=== PATIENT | female | born 1955 | race Caucasian/White ===

== ENCOUNTER 2022-05-11 21:21 | Emergency (ER) | payer MEDICARE, SELFPAY ==
[2022-05-11] VITALS (10 sets, daily range): BP systolic 115–150; BP diastolic 57–77; PULSE 90–110; RESP 16–36; TEMP 37.2; O2SAT 95–100; BMI 34.3
--- NOTE | 2022-05-11 21:29 | DI.CT.S_ITS ---
PROCEDURE: CT HEAD/BRAIN WO CON INDICATIONS: fall with neck pain TECHNIQUE: Noncontrast 4.5 mm thick angled axial sections acquired from the foramen magnum to the vertex, with coronal and sagittal reformats. For radiation dose reduction, the following was used: automated exposure control, adjustment of mA and/or kV according to patient size. COMPARISON: None. FINDINGS: Image quality: Excellent. CSF spaces: Basal cisterns are patent. No extra-axial fluid collections. Ventricles are normal in size and shape. Brain: No intracranial hemorrhage, mass, or mass effect. Hatch-white matter interface appears preserved. Skull and face: Calvarium and visualized facial bones are intact, without suspicious lesions. Sinuses: Visualized sinuses and mastoids are clear. IMPRESSION: 1. No acute intracranial abnormality. Dictated by: Kip Mays M.D. on 05/11/2022 at 23:14 Approved by: Kip Mays M.D. on 05/11/2022 at 23:16
--- NOTE | 2022-05-11 21:29 | DI.CT.S_ITS ---
PROCEDURE: CT CERVICAL SPINE WO CON INDICATIONS: fall with neck pain TECHNIQUE: Noncontrast 3 mm thick sections acquired from the skull base to the T4 level. Sagittal and coronal reformats were then constructed. For radiation dose reduction, the following was used: automated exposure control, adjustment of mA and/or kV according to patient size. COMPARISON: None. FINDINGS: Image quality: There is mild motion artifact. Metallic streak artifact is also present from patient's left chest wall pacemaker. Bones: No fractures or subluxation. There is straightening of the cervical lordosis. There is minimal anterolisthesis at C7-T1. Multilevel degenerative disc disease and facet arthropathy are present. Visualized superior ribs are intact. Soft tissues: Prevertebral soft tissues are normal in thickness. No paravertebral hematomas. No apical pneumothoraces. IMPRESSION: 1. No acute fracture or subluxation. Dictated by: Kip Mays M.D. on 05/11/2022 at 23:16 Approved by: Kip Mays M.D. on 05/11/2022 at 23:19
--- NOTE | 2022-05-11 21:59 | ED_ITS ---
HPI - Fall General Chief Complaint: Fall Stated Complaint: glf- repeated falls. slurred speech etoh Time Seen by Provider: 05/11/22 21:26 Source: patient and EMS Mode of arrival: EMS History of Present Illness HPI Narrative: 66-year-old female nonsmoker with history of alcohol abuse presents by EMS for evaluation of head and neck pain after fall. She denies any loss of consciousness nor nausea or vomiting. She takes no blood thinners but does admit to drinking alcohol. She had been seen and evaluated at an outside facility earlier and was upset with her care, stating they did not take any pictures. She has no chest pain or shortness of breath. She denies any shoulder, the elbow or wrist pain. She has no hip, knee or ankle pain Related Data Previous Rx's Medication Instructions Recorded carbamazepine 200 mg tablet 400 mg OR HS #14 tabs 10/22/15 Allergies Allergy/AdvReac Type Severity Reaction Status Date / Time acetaminophen [From VICODIN] Allergy Unknown Unverified 06/13/17 12:08 hydrocodone [From VICODIN] Allergy Unknown Unverified 06/13/17 12:08 Review of Systems Review of Systems Narrative: GENERAL: Denies chills, fatigue, malaise, fever, sweats. HEENT: Denies sinus pain, ear pain, sore throat, difficulty swallowing, dizziness. RESPIRATORY: Denies dyspnea, cough, wheezing, hemoptysis, sputum. CARDIOVASCULAR: Denies chest pain, palpitations, orthopnea, edema, GASTROINTESTINAL: Denies nausea, vomiting, abdominal pain, diarrhea, constipation, melena. : Denies dysuria, frequency, incontinence, hematuria, urinary retention. MUSCULOSKELETAL: see HPI SKIN: Denies rash, skin lesions, or other NEUROLOGIC: Denies weakness, headache, numbness, change in speech, confusion, seizures, incoordination. PSYCHIATRIC: No concerning psychosocial issues. 12 point review of systems is negative except for those stated above Patient History Social History Smoking Status: Never smoker Smoking Status: Never smoker alcohol intake frequency: holidays/special occasions only Alcohol type: wine Substance Use Type: does not use Exam Narrative Exam Narrative: GENERAL: [66] year old patient appears stated age. Well-developed patient, in mild distress. GCS 15 HEAD: Atraumatic. Normocephalic. Purple and brownish bruising occiput and left parietal region, no hematoma or evidence of depressed skull fracture EYES: Pupils equal round and reactive. No hyphema Extraocular motions intact. No scleral icterus. No injection or drainage. ENT: Nose without bleeding, purulent drainage. No nasal septal hematoma Throat without erythema, tonsillar hypertrophy or exudate. Airway patent. NECK: Trachea midline. Midline tenderness to palpation CARDIOVASCULAR: Regular rate and rhythm without murmurs, gallops, or rubs. RESPIRATORY: Clear to auscultation. Breath sounds equal bilaterally. No wheezes, rales, or rhonchi. GASTROINTESTINAL: Abdomen soft, non-tender, nondistended. EXTREMITIES: No edema or joint tenderness. BACK: Nontender without deformity or crepitance. No flank tenderness. NEURO: AOx3. SKIN: No rash or erythema of visible areas Initial Vital Signs Initial Vital Signs: Vital Signs Temperature 99.0 F 05/11/22 21:30 Pulse Rate 91 H 05/11/22 21:30 Respiratory Rate 16 05/11/22 21:30 Blood Pressure 130/57 L 05/11/22 21:30 Pulse Oximetry 98 05/11/22 21:30 Oxygen Delivery Method Room Air 05/11/22 21:30 Course Orders Ordered: ED Orders 05/11/22 21:28 Blood Culture Stat COVID19 -Nasal RAPID Stat 05/11/22 21:29 CT cervical spine wo con Stat CT head/brain wo con Stat Lactate (Lactic Acid) Stat 05/11/22 22:30 Complete Blood Count AUTO DIFF Stat Comprehensive Metabolic Panel Stat Ethanol (ETOH) Stat Lipase Stat Magnesium Stat NT-proBNP (BNP-Adult 18+) Stat Troponin & CK Cardiac Panel Stat Discontinued Medications Sodium Chloride (Normal Saline 0.9%) 1,000 mls @ 1,000 mls/hr IV BOLUS ONE Stop: 05/11/22 22:27 Last Infusion: 05/12/22 01:30 Dose: 0 mls/hr Documented By: Admin: 05/11/22 22:45 Dose: 1,000 mls/hr Documented By: JOEY Ketorolac Tromethamine (Ketorolac 30 Mg/Ml Vial) 15 mg IV NOW ONE Stop: 05/11/22 23:21 Last Admin: 05/11/22 23:36 Dose: 15 mg Documented By: JOEY Metoprolol Tartrate (Metoprolol Ir 25 Mg Tablet) 25 mg PO NOW ONE Stop: 05/12/22 03:12 Last Admin: 05/12/22 03:20 Dose: 25 mg Documented By: JOEY Reevaluation(s) Reevaluation #1: Patient awake, alert and oriented, repeatedly asking for help urinating Reevaluation #2: Patient ambulatory with walker, she is a cane at baseline. Speaking clearly, requesting discharge Vital Signs Vital signs: Vital Signs - 8 hr 05/11/22 21:30 Temperature 99.0 F Pulse Rate 91 H Respiratory Rate 16 Blood Pressure 130/57 L Pulse Oximetry 98 Oxygen Delivery Method Room Air MDM - Fall Lab Data 05/11/22 22:30 05/11/22 22:30 Labs: Lab Results 05/11/22 05/11/22 05/11/22 Range/Units 22:30 22:30 22:30 WBC 6.6 (4.5-11.0) X10^3/uL RBC 5.02 (4.0-5.2) X10^6/uL Hgb 11.3 L (12.0-16.0) g/dL Hct 36.1 (36-46) % MCV 71.9 L (80-100) fL MCH 22.6 L (26-34) PG MCHC 31.4 (30-36) % RDW 22.4 H (11.6-14.8) % Plt Count 411 H (150-400) X10^3/uL Neut % (Auto) 40.4 L (50-75) % Lymph % (Auto) 47.5 H (25-40) % [place] % (Auto) 9.7 (3-14) % Eos % (Auto) 1.3 L (2-4) % Baso % (Auto) 1.1 (0-2) % Neut # (Auto) 2600 (4120-4472) /uL Lymph # (Auto) 3100 (3623-1528) /uL [place] # (Auto) 600 (0-900) /uL Eos # (Auto) 100 (0-450) /uL Baso # (Auto) 100 (0-100) /uL RBC Morphology See below Anisocytosis 3+ H Ovalocytes 1+ H Schistocytes 1+ H Sodium 142 (137-145) mmol/L Potassium 4.3 (3.4-5.1) mmol/L Chloride 106 (98-107) mmol/L Carbon Dioxide 25 (22-32) mmol/L BUN 9 (7-17) mg/dL Creatinine 0.72 (0.52-1.04) mg/dL Estimated GFR > 60 (>60) mL/min BUN/Creatinine Ratio 12.5 (6-22) Glucose 93 (80-110) mg/dL Calcium 9.5 (8.4-10.2) mg/dL Magnesium 2.3 (1.6-2.3) mg/dL Total Bilirubin 0.6 (0.2-1.3) mg/dL AST 91 H (14-36) IU/L ALT 11 (<35) IU/L Alkaline Phosphatase 85 (38-126) U/L Total Creatine Kinase 59 (30-135) U/L CK-MB (CK-2) TNP CK-MB (CK-2) Rel Index TNP Troponin I < 0.012 (0.01-0.034) ng/mL NT-Pro-B Natriuret Pep 389 H (<125) pg/mL Total Protein 8.0 (6.3-8.2) g/dL Albumin 4.8 (3.5-5.0) g/dL Globulin 3.2 (1.7-4.1) g/dL Albumin/Globulin Ratio 1.5 (1.0-2.8) Lipase 62 (23-300) U/L Ethyl Alcohol ( - 10) mg/dL 05/11/22 Range/Units 22:30 WBC (4.5-11.0) X10^3/uL RBC (4.0-5.2) X10^6/uL Hgb (12.0-16.0) g/dL Hct (36-46) % MCV (80-100) fL MCH (26-34) PG MCHC (30-36) % RDW (11.6-14.8) % Plt Count (150-400) X10^3/uL Neut % (Auto) (50-75) % Lymph % (Auto) (25-40) % [place] % (Auto) (3-14) % Eos % (Auto) (2-4) % Baso % (Auto) (0-2) % Neut # (Auto) (5894-1745) /uL Lymph # (Auto) (3422-4374) /uL [place] # (Auto) (0-900) /uL Eos # (Auto) (0-450) /uL Baso # (Auto) (0-100) /uL RBC Morphology Anisocytosis Ovalocytes Schistocytes Sodium (137-145) mmol/L Potassium (3.4-5.1) mmol/L Chloride (98-107) mmol/L Carbon Dioxide (22-32) mmol/L BUN (7-17) mg/dL Creatinine (0.52-1.04) mg/dL Estimated GFR (>60) mL/min BUN/Creatinine Ratio (6-22) Glucose (80-110) mg/dL Calcium (8.4-10.2) mg/dL Magnesium (1.6-2.3) mg/dL Total Bilirubin (0.2-1.3) mg/dL AST (14-36) IU/L ALT (<35) IU/L Alkaline Phosphatase (38-126) U/L Total Creatine Kinase (30-135) U/L CK-MB (CK-2) CK-MB (CK-2) Rel Index Troponin I (0.01-0.034) ng/mL NT-Pro-B Natriuret Pep (<125) pg/mL Total Protein (6.3-8.2) g/dL Albumin (3.5-5.0) g/dL Globulin (1.7-4.1) g/dL Albumin/Globulin Ratio (1.0-2.8) Lipase (23-300) U/L Ethyl Alcohol 220 H ( - 10) mg/dL [facility] Narrative Medical decision making narrative: CC: 66-year-old female with head and neck pain after fall Complicating co-morbidities: Age, alcohol use Data collected from: Patient Medical records reviewed: Prior notes reviewed in our EMR Differential considered, but not limited to: Fracture, dislocation intracranial hemorrhage versus other Exam documented above, pertinent findings include: Aging bruising on parietal and occiput, no depressed skull fracture. Patient is speaking clearly without slurring words. She does have midline tenderness on her neck but negative imaging. Otherwise unremarkable exam Lab Test results independently reviewed as above. Pertinent findings: Independently reviewed EKG as above Imaging studies independently reviewed: CT of head and C-spine unremarkable Treatments: Saline and Toradol Re-evaluations: Patient resting comfortably Discussion: Patient with alcohol on board and a ground level fall, chief complaint of headache and neck pain. Otherwise absence of complaint. History and physical are very reassuring, over time she becomes alert and oriented, ambulatory in the department. Imaging without any significant findings. She had not taken her nighttime meds and has been given her metoprolol. No findings suggestive of the need for further workup or intervention Disposition: see below, along with detailed discharge instructions that have been reviewed with patient as well as indications for ED re-evaluation and additional outpatient follow up Discharge Plan Departure Patient Disposition: Home Clinical Impression: Contusion of scalp, Acute neck pain, Alcohol abuse Instructions: How to Prevent Falls Activity Restrictions/Additional Instructions: *You have been diagnosed with [fall with minor injury] *What to do: *Please continue to take your regular medications as directed. *Please follow up with your primary care provider in 2-3 days, call for an appointment. Let them know you were seen in the Emergency Department and that we ask that you be seen in follow up. We will electronically transmit a record of today's note if your PCP is in our system *If you do not have a primary care provider please contact the [facility] Resource line at [phone]. They will ask some questions about your medical history and help get you set up with a doctor in the community. *Return to Emergency Department if you should have any new, worsening or concerning symptoms, such as [fever greater than 101 F, shaking chills, worsening pain, persistent vomiting or other bothersome symptoms] Prescriptions: No Action carbamazepine 200 MG tablet 400 mg OR HS Qty: 14 5RF Referrals: Jeff Fu DO [Primary Care Provider] - Stand Alone Forms: Patient Portal/API
[2022-05-11] MEDS: SODIUM CHLORIDE 0.9% 1,000 ML 1000 ML IV (22:45)
[2022-05-11 22:57] LABS: Ethanol (ETOH) 220 mg/dL
[2022-05-11 22:59] LABS: Creatine Kinase 59 U/L (30-135); Lipase 62 U/L (23-300); Magnesium 2.3 mg/dL (1.6-2.3)
[2022-05-11 23:00] LABS: Add Manual Diff / Slide Review SLIDE REVIEW; Basophils Absolute Auto 100 /uL (0-100); Basophils Percent Auto 1.1 % (0-2); Eosinophils Absolute Auto 100 /uL (0-450); Eosinophils Percent Auto 1.3 % (2-4); Hematocrit 36.1 % (36-46); Hemoglobin 11.3 g/dL (12.0-16.0); Lymphocytes Absolute Auto 3100 /uL (1100-4500); Lymphocytes Percent Auto 47.5 % (25-40); Mean Corpuscular HGB Conc 31.4 % (30-36); Mean Corpuscular Hemoglobin 22.6 PG (26-34); Mean Corpuscular Volume 71.9 fL (80-100); Monocytes Absolute Auto 600 /uL (0-900); Monocytes Percent Auto 9.7 % (3-14); Neutrophils Absolute Auto 2600 /uL (1500-7000); Neutrophils Percent Auto 40.4 % (50-75); Platelet Count 411 X10^3/uL (150-400); Red Blood Cell Count 5.02 X10^6/uL (4.0-5.2); Red Cell Distribution Width 22.4 % (11.6-14.8); White Blood Cell Count 6.6 X10^3/uL (4.5-11.0)
[2022-05-11 23:12] LABS: NT-proBNP (BNP-Adult 18+) 389 pg/mL (<125); Troponin I < 0.012 ng/mL (0.01-0.034)
[2022-05-11] MEDS: KETOROLAC 30 MG/ML VIAL 15 MG IV (23:36)
[2022-05-11 23:42] LABS: Alanine Aminotransferase 11 IU/L (<35); Albumin 4.8 g/dL (3.5-5.0); Albumin Globulin Ratio 1.5 (1.0-2.8); Alkaline Phosphatase 85 U/L (38-126); Aspartate Aminotransferase 91 IU/L (14-36); BUN Creatinine Ratio 12.5 (6-22); Bilirubin Total 0.6 mg/dL (0.2-1.3); Blood Urea Nitrogen 9 mg/dL (7-17); Calcium 9.5 mg/dL (8.4-10.2); Carbon Dioxide 25 mmol/L (22-32); Chloride 106 mmol/L (98-107); Estimated Glomerular Filt Rate > 60 mL/min (>60); Globulin 3.2 g/dL (1.7-4.1); Glucose 93 mg/dL (80-110); HEMOLYSIS 48 (0-50); Potassium 4.3 mmol/L (3.4-5.1); Sodium 142 mmol/L (137-145)
[2022-05-12] VITALS (12 sets, daily range): BP systolic 116–137; BP diastolic 60–85; PULSE 89–120; RESP 15–31; O2SAT 93–98
[2022-05-12 00:37] LABS: Anisocytosis 3+; Ovalocytes 1+; Schistocytes 1+
[2022-05-12] MEDS: METOPROLOL IR 25 MG TABLET PO (03:20)
--- NOTE | 2022-05-12 04:13 | PC.NURSE ---
Pt has been cleared for discharge, unable to obtain a ride home, waiting for am 8am taxi or other way home.
--- NOTE | 2022-05-12 08:03 | PC.NURSE ---
Patient able to walk to chair. She is sitting up and eating a sandwich and drinking water. Vital signs stable. Alert and oriented x3. She states she cannot find her black birkenstock shoes. I checked in the room, CT and in our clothing locked area and did not find them I encouraged the patient to check her house and with the ambulance company and then to call back and check lost and found if those attempts are unsuccessful. Vania was called to drive the patient home. She was wheeled out to the taxi in a wheelchair by the GROCERY CLERK SELLING.
== END 2022-05-12 08:13 | disposition home or self-care (01) ==
PROVIDERS: Emergency Provider Emergency Medicine; Family Provider Family Medicine; PCP Family Medicine
DX: S00.03XA Contusion of scalp, initial encounter (principal); M54.2 Cervicalgia; F10.129 Alcohol abuse with intoxication, unspecified; Y90.7 Blood alcohol level of 200-239 mg/100 ml; W18.30XA Fall on same level, unspecified, initial encounter; R47.81 Slurred speech; R29.6 Repeated falls
CPT/HCPCS: 36415; 70450; 72125; 80053; 80320; 82550; 83690; 83735; 83880; 84484; 85025; 87040; 96361; 96374; 99284; J1885

== ENCOUNTER 2022-05-12 18:50 | Emergency (ER) | payer MEDICARE, SELFPAY ==
[2022-05-12] VITALS (10 sets, daily range): BP systolic 133–145; BP diastolic 62–73; PULSE 86–121; RESP 18–22; TEMP 36.6; O2SAT 95–100
--- NOTE | 2022-05-12 19:13 | DI.CT.S_ITS ---
PROCEDURE: CT CERVICAL SPINE WO CON INDICATIONS: fall, trauma TECHNIQUE: Noncontrast 3 mm thick sections acquired from the skull base to the T4 level. Sagittal and coronal reformats were then constructed. For radiation dose reduction, the following was used: automated exposure control, adjustment of mA and/or kV according to patient size. COMPARISON: [facility], CT, CT CERVICAL SPINE WO CON, 05/11/2022, 21:52. FINDINGS: Image quality: There is motion artifact limiting evaluation. Bones: No definite fracture or subluxation. There is minimal anterolisthesis at C7-T1. There is mild straightening of the cervical lordosis. Multilevel degenerative disc disease and facet joint arthropathy are present. Visualized superior ribs are intact. Soft tissues: Prevertebral soft tissues are normal in thickness. No paravertebral hematomas. No apical pneumothoraces. IMPRESSION: 1. No acute fracture or subluxation. Dictated by: Kip Mays M.D. on 05/12/2022 at 21:39 Approved by: Kip Mays M.D. on 05/12/2022 at 21:46
--- NOTE | 2022-05-12 19:13 | DI.CT.S_ITS ---
P a or ROCEDURE: CT CHEST ABD PEL W CON INDICATIONS: fall, trauma TECHNIQUE: After the administration of intravenous contrast, 5 mm thick sections acquired from the lung apices to the symphysis. 2.5 mm thick coronal and sagittal reformats were acquired. Additional 7 mm thick coronal maximum intensity projection (MIP) reformats acquired through the lungs. Optional 10-minute delayed imaging may be performed from the kidneys to the bladder. For radiation dose reduction, the following was used: automated exposure control, adjustment of mA and/or kV according to patient size. COMPARISON: None. FINDINGS: Image quality: Evaluation limited by suboptimal contrast opacification. CHEST: Lower Neck: No lymphadenopathy by size criteria. Thyroid: Visualized thyroid demonstrates no discrete nodules. Axillae: No lymphadenopathy by size criteria. Chest Wall: There is a left chest wall pacemaker with leads extending into the right atrium and right ventricle. Bones: No acute fractures identified. Lungs and Airways: No pulmonary contusions or lacerations. No acute consolidation. There is mild dependent atelectasis bilaterally. The trachea and central airways are patent. Pleura: No pneumothorax or pleural effusions. Heart: Heart size is normal. No pericardial effusion. Thoracic Vessels: The aorta is normal in size. Pulmonary arteries are mildly enlarged. Mediastinum and Tati: No lymphadenopathy by size criteria. No definite mediastinal hematomas. Esophagus: No wall thickening. There is a small hiatal hernia. ABDOMEN: Liver: No hepatic lacerations or perihepatic fluid collections. Gallbladder: Within normal limits without calcified gallstones. Biliary ducts: No biliary ductal dilatation. Pancreas: Unremarkable. Spleen: Normal in size. No splenic lacerations or perisplenic fluid collections. Adrenal Glands: No adrenal nodules. Kidneys and Ureters: No hydronephrosis. There are bilateral extrarenal pelves. Stomach and Bowel: Stomach, small bowel loops, and colon are normal in caliber and wall thickness. Peritoneum: No abnormal intraperitoneal fluid. No free air. Ventral Wall: No hernia. Abdominal Nodes: No retroperitoneal or mesenteric adenopathy by size criteria. Vessels: Aorta and inferior vena cava are normal in size. PELVIS: Pelvic Organs: The uterus is surgically absent. Bladder: Unremarkable. Pelvic Nodes: No enlarged lymph nodes. Miscellaneous: No inguinal hernias are seen. Bones: No acute fractures identified. Visualized osseous structures demonstrate no suspicious focal lesions. IMPRESSION: 1. No acute traumatic abnormality in the chest, abdomen, or pelvis. Dictated by: Kip Mays M.D. on 05/12/2022 at 21:50 Approved by: Kip Mays M.D. on 05/12/2022 at 21:54
--- NOTE | 2022-05-12 19:13 | DI.CT.S_ITS ---
PROCEDURE: CT HEAD/BRAIN WO CON INDICATIONS: fall, trauma TECHNIQUE: Noncontrast 4.5 mm thick angled axial sections acquired from the foramen magnum to the vertex, with coronal and sagittal reformats. For radiation dose reduction, the following was used: automated exposure control, adjustment of mA and/or kV according to patient size. COMPARISON: [facility], CT, CT HEAD/BRAIN WO CON, 05/11/2022, 21:52. FINDINGS: Image quality: Excellent. CSF spaces: Basal cisterns are patent. No extra-axial fluid collections. There is mild cerebral volume loss, with resultant ventricular and sulcal prominence. Brain: No intracranial hemorrhage, mass, or mass effect. There are subcortical, periventricular and deep white matter hypodensities consistent with mild chronic small vessel ischemic changes. The jones-white matter junction appears preserved. There is intracranial internal carotid artery atherosclerosis. Skull and face: Calvarium and visualized facial bones are intact, without suspicious lesions. Sinuses: Visualized sinuses and mastoids are clear. IMPRESSION: 1. No acute intracranial abnormality. Dictated by: Kip Mays M.D. on 05/12/2022 at 21:38 Approved by: Kip Mays M.D. on 05/12/2022 at 21:39
--- NOTE | 2022-05-12 19:15 | ED_ITS ---
HPI - Fall General Chief Complaint: Fall Stated Complaint: Fall, intoxicated Time Seen by Provider: 05/12/22 19:12 History of Present Illness HPI Narrative: 66-year-old female nonsmoker with history of alcohol abuse, prior stroke, gait instability (use his cane at baseline) presents for evaluation of fall with head injury and syncope. She states that she was attempting to ambulate and fell backwards struck her head and likely had a brief syncopal episode. She hurts all over and states her feet are cold. She is activated as a modified trauma given age greater than 65 at expected injury. Patient has headache but denies any blurred vision or trouble with speech apart from her baseline, of note she does have stuttering speech at her baseline. She denies any chest pain or short ness of breath. She denies extremity injury. She was seen and evaluated yesterday for the same and discharged early this morning after an extensive workup and observation. Related Data Home Medications Medication Instructions Recorded Confirmed Ventolin HFA 1 - 2 puff inhalation QID PRN 05/12/22 05/12/22 Shortness Of Breath acyclovir 400 mg tablet 400 mg PO PRN PRN Cold Sores 05/12/22 05/12/22 bupropion HCl 150 mg 24 hr tablet, 150 mg PO DAILY 05/12/22 05/12/22 extended release disulfiram 250 mg PO DAILY 05/12/22 05/12/22 duloxetine 60 mg PO DAILY 05/12/22 05/12/22 gabapentin 300 mg capsule 900 mg PO BEDTIME 05/12/22 05/12/22 lamotrigine 200 mg tablet 200 mg PO DAILY 05/12/22 05/12/22 lorazepam 0.5 mg tablet (Ativan) 0.5 mg PO PRN PRN Anxiety 05/12/22 05/12/22 metoprolol succinate 25 mg 25 mg PO DAILY 05/12/22 05/12/22 tablet,extended release 24 hr ondansetron 4 mg disintegrating 4 mg PO PRN PRN Nausea 05/12/22 05/12/22 tablet polyethylene glycol 3350 17 17 g PO DAILY 05/12/22 05/12/22 gram/dose oral powder (Miralax) pravastatin 40 mg PO BEDTIME 05/12/22 05/12/22 quetiapine 200 mg tablet 400 mg PO BEDTIME 05/12/22 05/12/22 tizanidine 4 mg PO TID spasms 05/12/22 05/12/22 Allergies Allergy/AdvReac Type Severity Reaction Status Date / Time acetaminophen [From VICODIN] Allergy Unknown Unverified 06/13/17 12:08 hydrocodone [From VICODIN] Allergy Unknown Unverified 06/13/17 12:08 Review of Systems Review of Systems Narrative: GENERAL: See HPI HEENT: Denies sinus pain, ear pain, sore throat, difficulty swallowing, dizziness. RESPIRATORY: Denies dyspnea, cough, wheezing, hemoptysis, sputum. CARDIOVASCULAR: Denies chest pain, palpitations, orthopnea, edema, GASTROINTESTINAL: Denies nausea, vomiting, abdominal pain, diarrhea, con stipation, melena. : Denies dysuria, frequency, incontinence, hematuria, urinary retention. MUSCULOSKELETAL: See HPI SKIN: Denies rash, skin lesions, or other NEUROLOGIC: Denies weakness, headache, numbness, change in speech, confusion, seizures, incoordination. PSYCHIATRIC: No concerning psychosocial issues. 12 point review of systems is negative except for those stated above Patient History Social History Smoking Status: Never smoker Smoking Status: Never smoker alcohol intake frequency: holidays/special occasions only Alcohol type: wine Substance Use Type: does not use Exam Narrative Exam Narrative: GENERAL: [66] year old patient appears stated age. Well-developed patient, in mild distress. GCS 15 HEAD: Scalp tender to palpate, no obvious contusion, hematoma, laceration or evidence of depressed skull fracture EYES: Pupils equal round and reactive. Extraocular motions intact. No scleral icterus. No injection or drainage. ENT: Nose without bleeding, purulent drainage. Throat without erythema, tonsillar hypertrophy or exudate. Airway patent. NECK: Trachea midline. Non tender CARDIOVASCULAR: Regular rate and rhythm without murmurs, gallops, or rubs. RESPIRATORY: Clear to auscultation. Breath sounds equal bilaterally. No wheezes, rales, or rhonchi. GASTROINTESTINAL: Abdomen soft, non-tender, nondistended. EXTREMITIES: No edema or joint tenderness. BACK: Nontender without deformity or crepitance. No flank tenderness. NEURO: AOx3. SKIN: No rash or erythema of visible areas Initial Vital Signs Initial Vital Signs: Vital Signs Temperature 97.9 F 05/12/22 19:15 Pulse Rate 86 05/12/22 19:15 Respiratory Rate 22 05/12/22 19:15 Blood Pressure 145/73 H 05/12/22 19:15 Pulse Oximetry 99 05/12/22 19:15 Oxygen Delivery Method Room Air 05/12/22 19:15 Course Orders Ordered: ED Orders 05/12/22 19:13 CT cervical spine wo con Stat CT chest abd pel w con Stat CT head/brain wo con Stat EKG-12 Lead Stat 05/12/22 20:22 Complete Blood Count AUTO DIFF Stat Comprehensive Metabolic Panel Stat Ethanol (ETOH) Stat Lipase Stat Magnesium Stat Prothrombin Time INR Stat Troponin & CK Cardiac Panel Stat Discontinued Medications Sodium Chloride (Normal Saline 0.9%) 1,000 mls @ 1,000 mls/hr IV BOLUS ONE Stop: 05/13/22 00:32 Thiamine HCl 200 mg/ Sodium (Chloride) 102 mls @ 408 mls/hr IV NOW ONE Stop: 05/12/22 23:34 Metoprolol Tartrate (Metoprolol Ir 25 Mg Tablet) 50 mg PO NOW ONE Stop: 05/12/22 23:34 Last Admin: 05/12/22 23:57 Dose: 50 mg Documented By: RUFINA Vital Signs Vital signs: Vital Signs - 8 hr 05/12/22 19:15 05/12/22 19:16 05/12/22 19:30 Temperature 97.9 F Pulse Rate 86 90 Respiratory Rate 22 Blood Pressure 145/73 H 133/62 Pulse Oximetry 99 98 Oxygen Delivery Method Room Air 05/12/22 19:30 05/12/22 20:00 05/12/22 20:30 Temperature Pulse Rate 88 87 105 H Respiratory Rate 18 Blood Pressure Pulse Oximetry 98 Oxygen Delivery Method 05/12/22 21:30 05/12/22 22:00 05/12/22 22:30 Temperature Pulse Rate 107 H 113 H Respiratory Rate 22 20 Blood Pressure Pulse Oximetry 95 Oxygen Delivery Method 05/12/22 23:00 05/12/22 23:30 05/13/22 00:00 Temperature Pulse Rate 108 H 121 H 109 H Respiratory Rate 21 Blood Pressure Pulse Oximetry 98 100 96 Oxygen Delivery Method MDM - Fall Lab Data 05/12/22 20:22 05/12/22 20:22 Labs: Lab Results 05/12/22 05/12/22 05/12/22 Range/Units 20:22 20:22 20:22 WBC 5.5 (4.5-11.0) X10^3/uL RBC 4.46 (4.0-5.2) X10^6/uL Hgb 10.1 L (12.0-16.0) g/dL Hct 31.7 L (36-46) % MCV 71.0 L (80-100) fL MCH 22.7 L (26-34) PG MCHC 32.0 (30-36) % RDW 22.1 H (11.6-14.8) % Plt Count 338 (150-400) X10^3/uL Neut % (Auto) 54.2 (50-75) % Lymph % (Auto) 35.3 (25-40) % [place] % (Auto) 7.9 (3-14) % Eos % (Auto) 1.3 L (2-4) % Baso % (Auto) 1.3 (0-2) % Neut # (Auto) 3000 (1262-3711) /uL Lymph # (Auto) 2000 (9149-8559) /uL [place] # (Auto) 400 (0-900) /uL Eos # (Auto) 100 (0-450) /uL Baso # (Auto) 100 (0-100) /uL RBC Morphology See below Hypochromasia 1+ H Microcytosis 1+ H Schistocytes 1+ H PT 13.1 H (10.1-12.7) SECONDS INR 1.1 (0.9-1.3) Sodium 141 (137-145) mmol/L Potassium 4.3 (3.4-5.1) mmol/L Chloride 108 H (98-107) mmol/L Carbon Dioxide 24 (22-32) mmol/L BUN 8 (7-17) mg/dL Creatinine 0.60 (0.52-1.04) mg/dL Estimated GFR > 60 (>60) mL/min BUN/Creatinine Ratio 13.3 (6-22) Glucose 104 (80-110) mg/dL Calcium 8.5 (8.4-10.2) mg/dL Magnesium 2.1 (1.6-2.3) mg/dL Total Bilirubin 0.3 (0.2-1.3) mg/dL AST 39 H (14-36) IU/L ALT 10 (<35) IU/L Alkaline Phosphatase 71 (38-126) U/L Total Creatine Kinase (30-135) U/L CK-MB (CK-2) CK-MB (CK-2) Rel Index Troponin I (0.01-0.034) ng/mL Total Protein 6.6 (6.3-8.2) g/dL Albumin 4.0 (3.5-5.0) g/dL Globulin 2.6 (1.7-4.1) g/dL Albumin/Globulin Ratio 1.5 (1.0-2.8) Lipase 52 (23-300) U/L Ethyl Alcohol 223 H ( - 10) mg/dL 05/12/22 Range/Units 20:22 WBC (4.5-11.0) X10^3/uL RBC (4.0-5.2) X10^6/uL Hgb (12.0-16.0) g/dL Hct (36-46) % MCV (80-100) fL MCH (26-34) PG MCHC (30-36) % RDW (11.6-14.8) % Plt Count (150-400) X10^3/uL Neut % (Auto) (50-75) % Lymph % (Auto) (25-40) % [place] % (Auto) (3-14) % Eos % (Auto) (2-4) % Baso % (Auto) (0-2) % Neut # (Auto) (8624-5566) /uL Lymph # (Auto) (3549-1275) /uL [place] # (Auto) (0-900) /uL Eos # (Auto) (0-450) /uL Baso # (Auto) (0-100) /uL RBC Morphology Hypochromasia Microcytosis Schistocytes PT (10.1-12.7) SECONDS INR (0.9-1.3) Sodium (137-145) mmol/L Potassium (3.4-5.1) mmol/L Chloride (98-107) mmol/L Carbon Dioxide (22-32) mmol/L BUN (7-17) mg/dL Creatinine (0.52-1.04) mg/dL Estimated GFR (>60) mL/min BUN/Creatinine Ratio (6-22) Glucose (80-110) mg/dL Calcium (8.4-10.2) mg/dL Magnesium (1.6-2.3) mg/dL Total Bilirubin (0.2-1.3) mg/dL AST (14-36) IU/L ALT (<35) IU/L Alkaline Phosphatase (38-126) U/L Total Creatine Kinase 60 (30-135) U/L CK-MB (CK-2) TNP CK-MB (CK-2) Rel Index TNP Troponin I < 0.012 (0.01-0.034) ng/mL Total Protein (6.3-8.2) g/dL Albumin (3.5-5.0) g/dL Globulin (1.7-4.1) g/dL Albumin/Globulin Ratio (1.0-2.8) Lipase (23-300) U/L Ethyl Alcohol ( - 10) mg/dL Urine Dip Bedside Urine Glucose Negative Bedside Urine Bilirubin - Negative Bedside Urine Ketone - Negative Urine Specific [place] 1.010 Bedside Urine Occult Blood - Negative Bedside Urine pH 6.0 Bedside Urine Protein - Negative Bedside Urine Urobilinogen - Negative Bedside Urine Nitrite - Negative Bedside Urine Leukocytes - Negative Esterase MDM Narrative Medical decision making narrative: [66] year old patient presents with another fall and ongoing head pain. She is alert and oriented x3, speaking clearly and able to walk steady gait Multiple etiologies for patient's symptoms considered including, but not limited to: [Contusion, fracture, electrolyte abnormality, intoxication versus other] Prior Charts reviewed in our EMR Primary Historian: patient Labs reviewed and interpreted by myself: Alcohol significant elevated again, labs otherwise unremarkable Imaging reviewed: CT head, C-spine, chest abdomen pelvis unremarkable Patient was reassured by her labs and imaging but became frustrated that there were no significant new findings. She had multiple opportunities to demonstrate capacity and as noted above had clear speech, without slurring, was able to walk with a steady gait with an assistive device at her baseline and was able to demonstrate clear understanding of our ongoing plans in the risks associated with her leaving which could include anything from permanent disability to . Discharge Plan Departure Patient Disposition: Left Against Medical Advice Clinical Impression: Left against medical advice Prescriptions: No Action lamotrigine 200 mg tablet 200 mg PO DAILY Patient Comments: Take 1 tablet by mouth every night quetiapine 200 mg tablet 400 mg PO BEDTIME acyclovir 400 mg Tablet 400 mg PO PRN PRN (Reason: Cold Sores) lorazepam [Ativan] 0.5 mg tablet 0.5 mg PO PRN PRN (Reason: Anxiety) Patient Comments: Take 1 tablet by mouth once a day Use 1 tablet prior to flight gabapentin 300 mg capsule 900 mg PO BEDTIME metoprolol succinate 25 mg tablet extended release 24 hr 25 mg PO DAILY polyethylene glycol 3350 [Miralax] 17 gram/dose powder 17 g PO DAILY Patient Comments: once a day ondansetron 4 mg tablet,disintegrating 4 mg PO PRN PRN (Reason: Nausea) bupropion HCl 150 mg tablet extended release 24 hr 150 mg PO DAILY Patient Comments: Take 1 tablet by mouth every morning Ventolin HFA 1 - 2 puff inhalation QID PRN (Reason: Shortness Of Breath) disulfiram 250 mg PO DAILY duloxetine 60 mg PO DAILY pravastatin 40 mg PO BEDTIME tizanidine 4 mg PO TID Stand Alone Forms: Against Medical Advice
[2022-05-12 20:34] LABS: Add Manual Diff / Slide Review NO; Basophils Absolute Auto 100 /uL (0-100); Basophils Percent Auto 1.3 % (0-2); Eosinophils Absolute Auto 100 /uL (0-450); Eosinophils Percent Auto 1.3 % (2-4); Hematocrit 31.7 % (36-46); Hemoglobin 10.1 g/dL (12.0-16.0); Lymphocytes Absolute Auto 2000 /uL (1100-4500); Lymphocytes Percent Auto 35.3 % (25-40); Mean Corpuscular Hemoglobin 22.7 PG (26-34); Monocytes Absolute Auto 400 /uL (0-900); Monocytes Percent Auto 7.9 % (3-14); Neutrophils Absolute Auto 3000 /uL (1500-7000); Neutrophils Percent Auto 54.2 % (50-75); Platelet Count 338 X10^3/uL (150-400); Red Blood Cell Count 4.46 X10^6/uL (4.0-5.2); Red Cell Distribution Width 22.1 % (11.6-14.8); White Blood Cell Count 5.5 X10^3/uL (4.5-11.0)
[2022-05-12 20:49] LABS: INR 1.1 (0.9-1.3); Prothrombin Time 13.1 SECONDS (10.1-12.7)
[2022-05-12 20:57] LABS: Alanine Aminotransferase 10 IU/L (<35); Albumin Globulin Ratio 1.5 (1.0-2.8); Alkaline Phosphatase 71 U/L (38-126); Aspartate Aminotransferase 39 IU/L (14-36); BUN Creatinine Ratio 13.3 (6-22); Bilirubin Total 0.3 mg/dL (0.2-1.3); Blood Urea Nitrogen 8 mg/dL (7-17); Calcium 8.5 mg/dL (8.4-10.2); Carbon Dioxide 24 mmol/L (22-32); Chloride 108 mmol/L (98-107); Creatine Kinase 60 U/L (30-135); Estimated Glomerular Filt Rate > 60 mL/min (>60); Ethanol (ETOH) 223 mg/dL; Globulin 2.6 g/dL (1.7-4.1); Glucose 104 mg/dL (80-110); HEMOLYSIS 22 (0-50); Lipase 52 U/L (23-300); Magnesium 2.1 mg/dL (1.6-2.3); Potassium 4.3 mmol/L (3.4-5.1); Sodium 141 mmol/L (137-145); Total Protein 6.6 g/dL (6.3-8.2)
[2022-05-12 21:03] LABS: Hypochromasia 1+; Microcytosis 1+; Schistocytes 1+
[2022-05-12 21:07] LABS: Troponin I < 0.012 ng/mL (0.01-0.034)
[2022-05-12] MEDS: METOPROLOL IR 25 MG TABLET 50 MG PO (23:57)
[2022-05-13] VITALS: PULSE 109; O2SAT 96
--- NOTE | 2022-05-13 00:20 | PC.NURSE ---
Patient requesting to leave, provider notified patient's desire to leave AMA. Patient signed consent to leave AMA.
== END 2022-05-13 00:21 | disposition left against medical advice (07) ==
PROVIDERS: Emergency Provider Emergency Medicine; Family Provider Family Medicine; PCP Family Medicine
DX: S09.90XA Unspecified injury of head, initial encounter (principal); R55 Syncope and collapse; R07.9 Chest pain, unspecified; F10.129 Alcohol abuse with intoxication, unspecified; Y90.7 Blood alcohol level of 200-239 mg/100 ml; W18.30XA Fall on same level, unspecified, initial encounter
CPT/HCPCS: 36415; 70450; 71260; 72125; 74177; 80053; 80320; 81003; 82550; 83690; 83735; 84484; 85025; 85610; 93005; 93010; 99284; Q9967

== ENCOUNTER 2022-05-26 08:30 | Observation (INO) | payer MEDICARE, SELFPAY ==
[2022-05-26] VITALS (30 sets, daily range): BP systolic 130–182; BP diastolic 79–118; PULSE 91–125; RESP 16–20; TEMP 37.1; O2SAT 93–100; BMI 34.3; BMI 39.7
--- NOTE | 2022-05-26 08:55 | DI.RAD.S_ITS ---
PROCEDURE: XR SHOULDER RT MIN 2V INDICATIONS: fall TECHNIQUE: 2 views of the shoulder were acquired. COMPARISON: None. FINDINGS: Bones: Anterior shoulder dislocation. Soft tissues: Possible mild opacities in the partially seen lungs. IMPRESSION: Anterior shoulder dislocation Dictated by: Dimitry Corrales M.D. on 05/26/2022 at 9:57 Approved by: Dimitry Corrales M.D. on 05/26/2022 at 9:57
--- NOTE | 2022-05-26 09:14 | ED_ITS ---
HPI - Fall General Chief Complaint: Fall Stated Complaint: GLF Time Seen by Provider: 05/26/22 08:53 Source: patient and EMS Mode of arrival: EMS History of Present Illness HPI Narrative: Patient is a 66-year-old female history of hypertension alcohol abuse presenting today for 3 falls in last 24 hours. EMS reports that they run on her 3 times last night, she is complaining of right shoulder pain. It appears as though she has been here earlier this month on May 11 and for the same. She is also reporting need for frequent urination she is requested multiple times to go the bathroom after being here for short time and immediately after going. She denies any fever or chills. She denies any other drug use. She is really only complaining of shoulder pain. She admits to drinking a bottle of wine this morning Related Data Home Medications Medication Instructions Recorded Confirmed Ventolin HFA 1 - 2 puff inhalation QMONTH PRN 05/12/22 05/26/22 Shortness Of Breath acyclovir 400 mg tablet 400 mg PO PRN PRN Cold Sores 05/12/22 05/26/22 bupropion HCl 150 mg 24 hr tablet, 150 mg PO DAILY 05/12/22 05/26/22 extended release disulfiram 250 mg PO DAILY 05/12/22 05/26/22 duloxetine 60 mg PO DAILY 05/12/22 05/26/22 gabapentin 300 mg capsule 900 mg PO BEDTIME 05/12/22 05/26/22 lamotrigine 200 mg tablet 200 mg PO DAILY 05/12/22 05/26/22 lorazepam 0.5 mg tablet (Ativan) 0.5 mg PO PRN PRN Anxiety 05/12/22 05/26/22 metoprolol succinate 25 mg 25 mg PO DAILY 05/12/22 05/26/22 tablet,extended release 24 hr ondansetron 4 mg disintegrating 4 mg PO PRN PRN Nausea 05/12/22 05/26/22 tablet polyethylene glycol 3350 17 17 g PO DAILY 05/12/22 05/26/22 gram/dose oral powder (Miralax) pravastatin 40 mg PO BEDTIME 05/12/22 05/26/22 quetiapine 200 mg tablet 400 mg PO BEDTIME 05/12/22 05/26/22 tizanidine 4 mg PO TID spasms 05/12/22 05/26/22 Allergies Allergy/AdvReac Type Severity Reaction Status Date / Time hydrocodone [From VICODIN] Allergy Unknown Verified 05/26/22 17:23 Review of Systems Review of Systems ROS Unobtainable: All systems reviewed & are unremarkable except as noted in HPI and below Patient History Social History household members: none Smoking Status: Never smoker alcohol intake: current Smoking Status: Never smoker alcohol intake frequency: 0-2 drinks per day Alcohol type: wine Substance Use Type: does not use Exam Initial Vital Signs Initial Vital Signs: Vital Signs Pulse Rate 105 H 05/26/22 08:45 Pulse Oximetry 97 05/26/22 08:45 GENERAL: Alert 58-year-old female anxious and in [no acute] distress. HEENT: Head atraumatic,EOMI, pupils reactive, face symmetric, [moist] mucous membranes CARDIOVASCULAR: Regular rate and rhythm without murmurs, rubs or gallops. RESPIRATORY: Breath sounds equal bilaterally, no wheezes rales or rhonchi. ABDOMEN: Soft, nontender. Normoactive bowel sounds all 4 quadrants. No guarding or rebound. RECTAL: No gross blood external hemorrhoid noted stool is black and Hemoccult- positive EXTREMITIES: Normal range of motion, no clubbing or edema. Neurovascularly intact. Right shoulder pain, unable to adduct, no clavicle step-off moving fingertips distal radial intact no obvious bony NEUROLOGICAL: Alert and oriented x4. Moving all extremities SKIN: Warm, dry, no laceration, no petechiae, no rashes or lesions. Procedures Orthopedic Joint Reduction Joint #1: Side: right Joint Reduction Location: shoulder Analgesia: procedural sedation Shoulder Technique Used (if applicable): traction/counter-traction and external rotation Technique used: direct manipulation Post-reduction neuro exam: intact and no change Post-reduction vascular: intact Post Reduction X-Ray Obtained: Yes Post Reduction X-Ray Results: reduced Patient Tolerated Procedure: Well Procedural Sedation Consent signed: Yes Indication: fracture/dislocation reduction ASA Class: II IV Propofol dose (mg): 90 Intraservice time/total sedation time (min): 15 ED Sedation Level: Moderate (Concious) Patient Tolerated Procedure: Well and No complications Complications: none Course Orders Ordered: Albuterol (Albuterol 2.5 Mg/3 Ml Neb (Adult)) 2.5 mg INH RTBID PRN PRN Reason: Shortness Of Breath Or Wheezing Folic Acid (Folic Acid 1 Mg Tablet) 1 mg PO DAILY [facility] Hydromorphone HCl (Hydromorphone 0.5 Mg Inj) 0.5 mg IV Q4H PRN PRN Reason: Pain, Moderate (4-6) Last Admin: 05/27/22 06:33 Dose: 0.5 mg Documented By: Admin: 05/27/22 02:28 Dose: 0.5 mg Documented By: Admin: 05/26/22 21:03 Dose: 0.5 mg Documented By: DIXON Sodium Chloride (Normal Saline 0.9%) 500 mls @ 60 mls/hr IV CONT COURTNEY Last Admin: 05/27/22 06:33 Dose: 60 mls/hr Documented By: DIXON Lamotrigine (Lamotrigine 100 Mg Tablet) 200 mg PO DAILY [facility] Lorazepam (Lorazepam 2 Mg/Ml Inj) 0 mg IV CIWAPRN PRN; Protocol PRN Reason: Alcohol Withdrawal Lorazepam (Lorazepam 1 Mg Tablet) 0 mg PO CIWAPRN PRN; Protocol PRN Reason: Alcohol Withdrawal Melatonin (Melatonin 3 Mg Tablet) 6 mg PO BEDTIME PRN PRN Reason: Insomnia Metoprolol Succinate (Metoprolol Er 25 Mg Tablet) 25 mg PO DAILY [facility] Multivitamins (Multivitamin 1 Tablet) 1 tab PO DAILY [facility] Ondansetron HCl (Ondansetron 4 Mg/2 Ml Inj) 4 mg IV Q6HR PRN PRN Reason: Nausea And Vomiting Oxycodone HCl (Oxycodone Ir 5 Mg Tablet) 5 mg PO Q4HR PRN PRN Reason: Pain, Moderate (4-6) Last Admin: 05/26/22 23:38 Dose: 5 mg Documented By: DIXON Pantoprazole Sodium (Pantoprazole 40 Mg Vial) 40 mg IV BID [facility] Polyethylene Glycol (Polyethylene Glycol 3350 17 Gm Powd.Pack) 17 gm PO DAILY PRN PRN Reason: Constipation Polyethylene Glycol (Polyethylene Glycol 3350 17 Gm Powd.Pack) 17 gm PO DAILY [facility] Pravastatin Sodium (Pravastatin 20 Mg Tablet) 40 mg PO BEDTIME [facility] Sennosides (Sennosides 8.6 Mg Tablet) 8.6 mg PO BID PRN PRN Reason: Constipation Sodium Chloride (Sodium Chloride 0.9% Flush) 10 ml IV PRN PRN PRN Reason: Flush Last Admin: 05/27/22 02:27 Dose: 10 ml Documented By: DIXON Sodium Chloride (Sodium Chloride 0.9% Flush) 10 ml IV BID [facility] Last Admin: 05/26/22 21:03 Dose: 10 ml Documented By: DIXON Thiamine HCl (Thiamine 100 Mg Tablet) 100 mg PO DAILY [facility] Stop: 05/30/22 09:01 Discontinued Medications Bupropion HCl (Bupropion Xl 150 Mg Tab) 150 mg PO DAILY [facility] Duloxetine HCl (Duloxetine 30 Mg Capsule) 60 mg PO DAILY [facility] Gabapentin (Gabapentin 300 Mg Capsule) 900 mg PO BEDTIME [facility] Last Admin: 05/26/22 22:17 Dose: 900 mg Documented By: DIXON Hydromorphone HCl (Hydromorphone 1 Mg Inj) 1 mg IM NOW ONE Stop: 05/26/22 10:30 Last Admin: 05/26/22 10:32 Dose: 1 mg Documented By: ELVIRA Lorazepam (Lorazepam 0.5 Mg Tablet) 0.5 mg PO Q6HR PRN PRN Reason: Anxiety Last Admin: 05/27/22 00:23 Dose: 0.5 mg Documented By: DIXON Non-Formulary Medication (Disulfiram) 250 mg PO DAILY [facility] Oxycodone/Acetaminophen (Oxycodone/Acetaminophen 5/325 Tablet) 1 tab PO NOW ONE Stop: 05/26/22 15:39 Last Admin: 05/26/22 16:00 Dose: 1 tab Documented By: RUFINA Pantoprazole Sodium (Pantoprazole 40 Mg Vial) 40 mg IV NOW ONE Stop: 05/26/22 16:11 Last Admin: 05/26/22 17:04 Dose: 40 mg Documented By: RUFINA Propofol (Propofol 200 Mg/20 Ml Vial) 90 mg 1 mg/kg (90 mg) IV NOW ONE Stop: 05/26/22 11:53 Last Admin: 05/26/22 12:08 Dose: 90 mg Documented By: ELVIRA Quetiapine Fumarate (Quetiapine 100 Mg Tablet) 400 mg PO BEDTIME [facility] Last Admin: 05/26/22 22:47 Dose: 400 mg Documented By: DIXON Tizanidine HCl (Tizanidine 4 Mg Tablet) 4 mg PO TID PRN PRN Reason: Muscle Spasm Vital Signs Vital signs: Vital Signs - 8 hr 05/26/22 11:30 05/26/22 11:30 05/26/22 12:00 Pulse Rate 102 H Respiratory Rate Blood Pressure 150/86 H 173/92 H Pulse Oximetry 94 Oxygen Delivery Method 05/26/22 12:00 05/26/22 12:13 05/26/22 12:13 Pulse Rate 112 H 111 H Respiratory Rate Blood Pressure 182/93 H Pulse Oximetry 95 100 Oxygen Delivery Method 05/26/22 12:16 05/26/22 12:16 05/26/22 12:20 Pulse Rate 102 H Respiratory Rate Blood Pressure 174/118 H 170/103 H Pulse Oximetry 99 Oxygen Delivery Method 05/26/22 12:20 05/26/22 12:24 05/26/22 12:24 Pulse Rate 98 H 97 H Respiratory Rate Blood Pressure 146/90 H Pulse Oximetry 93 98 Oxygen Delivery Method Room Air 05/26/22 12:28 05/26/22 12:28 05/26/22 12:30 Pulse Rate 106 H 101 H Respiratory Rate Blood Pressure 152/95 H Pulse Oximetry 98 96 Oxygen Delivery Method 05/26/22 12:32 05/26/22 12:32 05/26/22 12:36 Pulse Rate 108 H Respiratory Rate Blood Pressure 160/100 H 140/93 H Pulse Oximetry 95 Oxygen Delivery Method 05/26/22 12:36 05/26/22 12:40 05/26/22 12:40 Pulse Rate 99 H 95 H Respiratory Rate Blood Pressure 130/92 H Pulse Oximetry 95 94 Oxygen Delivery Method 05/26/22 12:44 05/26/22 12:44 05/26/22 12:48 Pulse Rate 105 H 103 H Respiratory Rate Blood Pressure 145/87 H Pulse Oximetry 94 98 Oxygen Delivery Method 05/26/22 12:48 05/26/22 13:08 05/26/22 13:30 Pulse Rate 104 H 112 H Respiratory Rate Blood Pressure 154/97 H Pulse Oximetry 99 97 Oxygen Delivery Method 05/26/22 14:00 05/26/22 14:30 05/26/22 15:00 Pulse Rate 107 H 120 H 104 H Respiratory Rate Blood Pressure Pulse Oximetry 98 99 94 Oxygen Delivery Method 05/26/22 15:30 Pulse Rate 103 H Respiratory Rate 18 Blood Pressure Pulse Oximetry 96 Oxygen Delivery Method Room Air MDM - Fall Lab Data 05/26/22 19:00 05/26/22 11:00 Labs: Lab Results 05/26/22 05/26/22 05/26/22 Range/Units 10:40 10:40 11:00 WBC 7.0 (4.5-11.0) X10^3/uL RBC 3.71 L (4.0-5.2) X10^6/uL Hgb 8.9 L (12.0-16.0) g/dL Hct 27.6 L (36-46) % MCV 74.5 L (80-100) fL MCH 24.0 L (26-34) PG MCHC 32.2 (30-36) % RDW 24.9 H (11.6-14.8) % Plt Count 173 (150-400) X10^3/uL Neut % (Auto) 77.7 H (50-75) % Lymph % (Auto) 12.7 L (25-40) % [place] % (Auto) 8.9 (3-14) % Eos % (Auto) 0.4 L (2-4) % Baso % (Auto) 0.3 (0-2) % Neut # (Auto) 5500 (7877-5171) /uL Lymph # (Auto) 900 L (5142-2504) /uL [place] # (Auto) 600 (0-900) /uL Eos # (Auto) 0 (0-450) /uL Baso # (Auto) 0 (0-100) /uL RBC Morphology Not Reportable Anisocytosis 2+ H Ovalocytes 1+ H Sodium (137-145) mmol/L Potassium (3.4-5.1) mmol/L Chloride (98-107) mmol/L Carbon Dioxide (22-32) mmol/L BUN (7-17) mg/dL Creatinine (0.52-1.04) mg/dL Estimated GFR (>60) mL/min BUN/Creatinine Ratio (6-22) Glucose (80-110) mg/dL Lactate (0.7-2.1) mmol/L Calcium (8.4-10.2) mg/dL Magnesium (1.6-2.3) mg/dL Total Bilirubin (0.2-1.3) mg/dL AST (14-36) IU/L ALT (<35) IU/L Alkaline Phosphatase (38-126) U/L Total Creatine Kinase (30-135) U/L CK-MB (CK-2) CK-MB (CK-2) Rel Index Troponin I (0.01-0.034) ng/mL Total Protein (6.3-8.2) g/dL Albumin (3.5-5.0) g/dL Globulin (1.7-4.1) g/dL Albumin/Globulin Ratio (1.0-2.8) Procalcitonin (<0.5) ng/mL Urine Color Yellow Urine Appearance Sl cloudy Urine pH 5.5 (4.5-8.0) Ur Specific [place] 1.025 (1.000-1.035) Urine Protein Trace H (Negative) Urine Glucose (UA) Negative (Negative) g/dL Urine Ketones Negative (NEGATIVE) Urine Occult Blood Negative (Negative) Urine Nitrate Negative (Negative) Urine Bilirubin Negative (NEGATIVE) Urine Urobilinogen 0.2 (0.2) E.U./dL Ur Leukocyte Esterase Negative (NEGATIVE) Urine RBC None seen (0-5/HPF) Urine WBC None seen (0-5/HPF) Ur Squamous Epith Cells 1-5 /hpf (0-5/HPF) Urine Bacteria None seen (None) Ur Culture Indicated? Cult not indicated U Opiates 300ng/mL cut Negative (Negative) Ur Oxycodone Screen Negative (Negative) Urine Methadone Screen Negative (Negative) Ur Barbiturates Screen Negative (Negative) U Tricyclic Antidepress Positive H (Negative) Ur Phencyclidine Scrn Negative (Negative) Ur Amphetamines Screen Negative (Negative) U Methamphetamines Scrn Negative (Negative) Ur MDMA Scrn (Ecstasy) Negative (Negative) U Benzodiazepines Scrn Positive H (Negative) Urine Cocaine Screen Negative (Negative) U Marijuana (THC) Screen Negative (Negative) Ethyl Alcohol ( - 10) mg/dL SARS-CoV-2 (PCR) (Negative) 05/26/22 05/26/22 05/26/22 Range/Units 11:00 11:00 11:00 WBC (4.5-11.0) X10^3/uL RBC (4.0-5.2) X10^6/uL Hgb (12.0-16.0) g/dL Hct (36-46) % MCV (80-100) fL MCH (26-34) PG MCHC (30-36) % RDW (11.6-14.8) % Plt Count (150-400) X10^3/uL Neut % (Auto) (50-75) % Lymph % (Auto) (25-40) % [place] % (Auto) (3-14) % Eos % (Auto) (2-4) % Baso % (Auto) (0-2) % Neut # (Auto) (7959-5163) /uL Lymph # (Auto) (8920-4922) /uL [place] # (Auto) (0-900) /uL Eos # (Auto) (0-450) /uL Baso # (Auto) (0-100) /uL RBC Morphology Anisocytosis Ovalocytes Sodium 137 (137-145) mmol/L Potassium 4.3 (3.4-5.1) mmol/L Chloride 103 (98-107) mmol/L Carbon Dioxide 28 (22-32) mmol/L BUN 13 (7-17) mg/dL Creatinine 0.64 (0.52-1.04) mg/dL Estimated GFR > 60 (>60) mL/min BUN/Creatinine Ratio 20.3 (6-22) Glucose 131 H (80-110) mg/dL Lactate 1.5 (0.7-2.1) mmol/L Calcium 8.3 L (8.4-10.2) mg/dL Magnesium (1.6-2.3) mg/dL Total Bilirubin 0.3 (0.2-1.3) mg/dL AST 34 (14-36) IU/L ALT 11 (<35) IU/L Alkaline Phosphatase 61 (38-126) U/L Total Creatine Kinase 89 (30-135) U/L CK-MB (CK-2) TNP CK-MB (CK-2) Rel Index TNP Troponin I < 0.012 (0.01-0.034) ng/mL Total Protein 6.5 (6.3-8.2) g/dL Albumin 3.9 (3.5-5.0) g/dL Globulin 2.6 (1.7-4.1) g/dL Albumin/Globulin Ratio 1.5 (1.0-2.8) Procalcitonin 0.06 (<0.5) ng/mL Urine Color Urine Appearance Urine pH (4.5-8.0) Ur Specific [place] (1.000-1.035) Urine Protein (Negative) Urine Glucose (UA) (Negative) g/dL Urine Ketones (NEGATIVE) Urine Occult Blood (Negative) Urine Nitrate (Negative) Urine Bilirubin (NEGATIVE) Urine Urobilinogen (0.2) E.U./dL Ur Leukocyte Esterase (NEGATIVE) Urine RBC (0-5/HPF) Urine WBC (0-5/HPF) Ur Squamous Epith Cells (0-5/HPF) Urine Bacteria (None) Ur Culture Indicated? U Opiates 300ng/mL cut (Negative) Ur Oxycodone Screen (Negative) Urine Methadone Screen (Negative) Ur Barbiturates Screen (Negative) U Tricyclic Antidepress (Negative) Ur Phencyclidine Scrn (Negative) Ur Amphetamines Screen (Negative) U Methamphetamines Scrn (Negative) Ur MDMA Scrn (Ecstasy) (Negative) U Benzodiazepines Scrn (Negative) Urine Cocaine Screen (Negative) U Marijuana (THC) Screen (Negative) Ethyl Alcohol 137 H ( - 10) mg/dL SARS-CoV-2 (PCR) (Negative) 05/26/22 05/26/22 05/26/22 Range/Units 11:00 15:38 16:14 WBC (4.5-11.0) X10^3/uL RBC (4.0-5.2) X10^6/uL Hgb 8.3 L (12.0-16.0) g/dL Hct 25.8 L (36-46) % MCV (80-100) fL MCH (26-34) PG MCHC (30-36) % RDW (11.6-14.8) % Plt Count (150-400) X10^3/uL Neut % (Auto) (50-75) % Lymph % (Auto) (25-40) % [place] % (Auto) (3-14) % Eos % (Auto) (2-4) % Baso % (Auto) (0-2) % Neut # (Auto) (2748-1304) /uL Lymph # (Auto) (8224-5647) /uL [place] # (Auto) (0-900) /uL Eos # (Auto) (0-450) /uL Baso # (Auto) (0-100) /uL RBC Morphology Anisocytosis Ovalocytes Sodium (137-145) mmol/L Potassium (3.4-5.1) mmol/L Chloride (98-107) mmol/L Carbon Dioxide (22-32) mmol/L BUN (7-17) mg/dL Creatinine (0.52-1.04) mg/dL Estimated GFR (>60) mL/min BUN/Creatinine Ratio (6-22) Glucose (80-110) mg/dL Lactate (0.7-2.1) mmol/L Calcium (8.4-10.2) mg/dL Magnesium 1.9 (1.6-2.3) mg/dL Total Bilirubin (0.2-1.3) mg/dL AST (14-36) IU/L ALT (<35) IU/L Alkaline Phosphatase (38-126) U/L Total Creatine Kinase (30-135) U/L CK-MB (CK-2) CK-MB (CK-2) Rel Index Troponin I (0.01-0.034) ng/mL Total Protein (6.3-8.2) g/dL Albumin (3.5-5.0) g/dL Globulin (1.7-4.1) g/dL Albumin/Globulin Ratio (1.0-2.8) Procalcitonin (<0.5) ng/mL Urine Color Urine Appearance Urine pH (4.5-8.0) Ur Specific [place] (1.000-1.035) Urine Protein (Negative) Urine Glucose (UA) (Negative) g/dL Urine Ketones (NEGATIVE) Urine Occult Blood (Negative) Urine Nitrate (Negative) Urine Bilirubin (NEGATIVE) Urine Urobilinogen (0.2) E.U./dL Ur Leukocyte Esterase (NEGATIVE) Urine RBC (0-5/HPF) Urine WBC (0-5/HPF) Ur Squamous Epith Cells (0-5/HPF) Urine Bacteria (None) Ur Culture Indicated? U Opiates 300ng/mL cut (Negative) Ur Oxycodone Screen (Negative) Urine Methadone Screen (Negative) Ur Barbiturates Screen (Negative) U Tricyclic Antidepress (Negative) Ur Phencyclidine Scrn (Negative) Ur Amphetamines Screen (Negative) U Methamphetamines Scrn (Negative) Ur MDMA Scrn (Ecstasy) (Negative) U Benzodiazepines Scrn (Negative) Urine Cocaine Screen (Negative) U Marijuana (THC) Screen (Negative) Ethyl Alcohol ( - 10) mg/dL SARS-CoV-2 (PCR) Negative (Negative) Imaging Data Extremity x-ray #1: Radiologist's Impression: PROCEDURE:? XR SHOULDER RT MIN 2V ? INDICATIONS:? fall ? TECHNIQUE:? 2 views of the shoulder were acquired.? ? COMPARISON:? None. ? FINDINGS:? ? Bones:? Anterior shoulder dislocation. ? Soft tissues:? Possible mild opacities in the partially seen lungs. ? IMPRESSION:? Anterior shoulder dislocation ? ? Dictated by: Dimitry Corrales M.D. on 05/26/2022 at 9:57 ?? Chest x-ray: Radiologist's Impression: PROCEDURE:? XR CHEST 1V ? INDICATIONS:? fall ? TECHNIQUE:? One view of the chest was acquired.? ? COMPARISON:? [facility], CT, CT CHEST ABD PEL W CON, 05/12/2022, 21:04. ? FINDINGS:? ? Surgical changes and devices:? Left chest wall pulse generator with dual-chamber electrode leads in place.? Cardiac clip device. ? Lungs and pleura:? Possible vascular crowding versus mild lung disease.? No pleural effusions. ? Mediastinum:? Cardiomegaly ? Bones and chest wall:? Partially seen right shoulder dislocation. ? IMPRESSION:? Possible vascular crowding versus mild lung disease, which may be infectious or edema.? Consider future imaging surveillance to assess for resolution. Low lung volumes. ? Partially seen right shoulder dislocation.? ? ? Dictated by: Dimitry Corrales M.D. on 05/26/2022 at 10:03 ? ? CT scan - head: Radiologist's Impression: PROCEDURE:? CT HEAD/BRAIN WO CON ? INDICATIONS:? fall x 3 times ? TECHNIQUE:? Noncontrast 4.5 mm thick angled axial sections acquired from the foramen magnum to the vertex, with coronal and sagittal reformats.? For radiation dose reduction, the following was used:? automated exposure control, adjustment of mA and/or kV according to patient size.? ? COMPARISON:? [facility], CT, CT HEAD/BRAIN WO CON, 05/12/2022, 21:04. ? FINDINGS:? Image quality:? Good ? CSF spaces: Basal cisterns are patent. Lateral ventricles are symmetric. Volume:? Vascular calcifications. Periventricular white matter disease is commonly seen with chronic microangiopathy. Volume loss is present. These findings are [id number] ? ? Brain: No intracranial hemorrhage. Hatch-white differentiation is grossly maintained. ? Craniofacial structures: No displaced fracture. Sinuses are clear. Orbits are intact. ? IMPRESSION:? No acute intracranial abnormality ? ? Dictated by: Dimitry Corrales M.D. on 05/26/2022 at 9:51 ?? CT - cervical spine: Radiologist's Impression: PROCEDURE:? CT CERVICAL SPINE WO CON ? INDICATIONS:? fall x 3 with etoh ? TECHNIQUE:? Noncontrast 3 mm thick sections acquired from the skull base to the T4 level.? Sagittal and coronal reformats were then constructed.? For radiation dose reduction, the following was used:? automated exposure control, adjustment of mA and/or kV according to patient size.? ? COMPARISON:? [facility], CT, CT CERVICAL SPINE WO CON, 05/12/2022, 21:04. ? FINDINGS:? Image quality:? Degraded by motion and beam hardening artifact ? Bones:? No vertebral body height loss is identified.? No traumatic malalignment.? The lower cervical spine is difficult to evaluate due to artifact. ? Soft tissues:? Partially seen electrode leads and left chest wall pulse generator.? There may be some lung disease, partially seen. ? ? IMPRESSION:? No acute fracture or traumatic subluxation of the cervical spine.? Overall moderate degenerative changes.? If there is high concern for further derangement, consider MRI evaluation. ? Possible mild lung disease at the apices.? ? Dictated by: Dimitry Corrales M.D. on 05/26/2022 at 9:53? Extremity x-ray #2: Radiologist's Impression: PROCEDURE:? XR SHOULDER RT MIN 2V ? INDICATIONS:? post reduction ? TECHNIQUE:? 2 views of the shoulder were acquired.? ? COMPARISON:? [facility], CR, XR SHOULDER RT MIN 2V, 05/26/2022, 9:31. ? FINDINGS:? ? Bones:? Status post interval closed reduction of previously dislocated right shoulder.? Post reduction alignment appears anatomic.? Degenerative changes of the right acromioclavicular joint.? No definite fracture seen. ? No suspicious bony lesions.? Visualized ribs appear intact.? ? Soft tissues:? No suspicious soft tissue calcifications.? Median sternotomy wires are present.? Prior valvular replacement. ? IMPRESSION:? Status post closed reduction of the right shoulder.? Post reduction alignment appears anatomic.? No definite fracture seen.? Degenerative changes of the acromioclavicular joint. ? ? Dictated by: Efrain Kate M.D. on 05/26/2022 at 12:56 ? ? Approved by: Efrain Kate M.D. on 05/26/2022 at 13:00 ? MDM Narrative Medical decision making narrative: Patient is a 66-year-old female who has a known alcoholic presenting today with frequent falls and a right anterior shoulder dislocation. Shoulder is easily reduced. However she is noted to be more anemic than normal. Repeat H&H shows decreasing hemoglobin from 8.9-8.3. She is mildly dizzy when she stands up. Guaiac is also positive. She is mildly tachycardic not necessarily hypoxic, or hypotensive. She is given Protonix. This may or may not be the reason why patient keeps falling down. I spoke with Dr. Eaton, general surgery agrees with admission to hospitalist Dr. Orozco updated patient's symptoms test results agrees admission Discharge Plan Departure Patient Disposition: Admitted as Observation Clinical Impression: Anterior dislocation of right shoulder, Alcohol intoxication, Anemia Admit Date/Time: 05/26/22 16:53 Admit Provider: Ciaran Orozco
--- NOTE | 2022-05-26 09:18 | DI.CT.S_ITS ---
PROCEDURE: CT HEAD/BRAIN WO CON INDICATIONS: fall x 3 times TECHNIQUE: Noncontrast 4.5 mm thick angled axial sections acquired from the foramen magnum to the vertex, with coronal and sagittal reformats. For radiation dose reduction, the following was used: automated exposure control, adjustment of mA and/or kV according to patient size. COMPARISON: [facility], CT, CT HEAD/BRAIN WO CON, 05/12/2022, 21:04. FINDINGS: Image quality: Good CSF spaces: Basal cisterns are patent. Lateral ventricles are symmetric. Volume: Vascular calcifications. Periventricular white matter disease is commonly seen with chronic microangiopathy. Volume loss is present. These findings are [id number] Brain: No intracranial hemorrhage. Hatch-white differentiation is grossly maintained. Craniofacial structures: No displaced fracture. Sinuses are clear. Orbits are intact. IMPRESSION: No acute intracranial abnormality Dictated by: Dimitry Corrales M.D. on 05/26/2022 at 9:51 Approved by: Dimitry Corrales M.D. on 05/26/2022 at 9:53
--- NOTE | 2022-05-26 09:18 | DI.RAD.S_ITS ---
PROCEDURE: XR CHEST 1V INDICATIONS: fall TECHNIQUE: One view of the chest was acquired. COMPARISON: [facility], CT, CT CHEST ABD PEL W CON, 05/12/2022, 21:04. FINDINGS: Surgical changes and devices: Left chest wall pulse generator with dual-chamber electrode leads in place. Cardiac clip device. Lungs and pleura: Possible vascular crowding versus mild lung disease. No pleural effusions. Mediastinum: Cardiomegaly Bones and chest wall: Partially seen right shoulder dislocation. IMPRESSION: Possible vascular crowding versus mild lung disease, which may be infectious or edema. Consider future imaging surveillance to assess for resolution. Low lung volumes. Partially seen right shoulder dislocation. Dictated by: Dimitry Corrales M.D. on 05/26/2022 at 10:03 Approved by: Dimitry Corrales M.D. on 05/26/2022 at 10:05
--- NOTE | 2022-05-26 09:21 | DI.CT.S_ITS ---
PROCEDURE: CT CERVICAL SPINE WO CON INDICATIONS: fall x 3 with etoh TECHNIQUE: Noncontrast 3 mm thick sections acquired from the skull base to the T4 level. Sagittal and coronal reformats were then constructed. For radiation dose reduction, the following was used: automated exposure control, adjustment of mA and/or kV according to patient size. COMPARISON: [facility], CT, CT CERVICAL SPINE WO CON, 05/12/2022, 21:04. FINDINGS: Image quality: Degraded by motion and beam hardening artifact Bones: No vertebral body height loss is identified. No traumatic malalignment. The lower cervical spine is difficult to evaluate due to artifact. Soft tissues: Partially seen electrode leads and left chest wall pulse generator. There may be some lung disease, partially seen. IMPRESSION: No acute fracture or traumatic subluxation of the cervical spine. Overall moderate degenerative changes. If there is high concern for further derangement, consider MRI evaluation. Possible mild lung disease at the apices. Dictated by: Dimitry Corrales M.D. on 05/26/2022 at 9:53 Approved by: Dimitry Corrales M.D. on 05/26/2022 at 9:55
--- NOTE | 2022-05-26 09:31 | PC.NURSE ---
Pure wick placed
--- NOTE | 2022-05-26 10:18 | PC.NURSE ---
Pt's phone kept ringing and pt started yelling to turn it off. This PERSONAL BANKING OFFICER went in and pt stated, Turn this fucking thing off. With permission from the pt, this PERSONAL BANKING OFFICER turned off all alarms on the phone.
[2022-05-26] MEDS: HYDROMORPHONE 1 MG INJ IM (10:32)
[2022-05-26 10:54] LABS: Appearance Urine UA SL CLOUDY; Bilirubin Urine UA NEGATIVE (NEGATIVE); Color Urine UA YELLOW; Glucose Urine UA NEGATIVE (Negative); Ketones Urine UA NEGATIVE (NEGATIVE); Leukocyte Esterase Urine UA NEGATIVE (NEGATIVE); Nitrite Urine UA NEGATIVE (Negative); Occult Blood Urine UA NEGATIVE (Negative); Protein Urine UA TRACE (Negative); Specific Gravity Urine UA 1.025 (1.000-1.035); Urobilinogen Urine UA 0.2 E.U./dL (0.2)
[2022-05-26 10:58] LABS: pH Urine UA 5.5 (4.5-8.0)
[2022-05-26 11:02] LABS: Bacteria Urine None Seen; Culture Indicated Urine Cult Not Indicated; RBC Urine None Seen (0-5/HPF); Squamous Epithelial Cell Urine 1-5 /HPF (0-5/HPF); WBC Urine None Seen (0-5/HPF)
[2022-05-26 11:06] LABS: Ur Creatinine Normal (Normal); Ur Specific Gravity Normal (Normal); Urine pH Normal (Normal)
[2022-05-26 11:07] LABS: UR Morphine/Opiate cutoff 300 Negative (Negative); Urine Amphetamines Negative (Negative); Urine Barbiturates Negative (Negative); Urine Benzodiazepines Positive (Negative); Urine Cocaine Negative (Negative); Urine MDMA Negative (Negative); Urine Methadone Negative (Negative); Urine Methamphetamines Negative (Negative); Urine Oxycodone Negative (Negative); Urine Phencyclidine Negative (Negative); Urine Tetrahydrocannabinol Negative (Negative); Urine Tricyclic Antidepressant Positive (Negative)
[2022-05-26 11:11] LABS: Add Manual Diff / Slide Review NO; Basophils Absolute Auto 0 /uL (0-100); Basophils Percent Auto 0.3 % (0-2); Eosinophils Absolute Auto 0 /uL (0-450); Eosinophils Percent Auto 0.4 % (2-4); Hematocrit 27.6 % (36-46); Hemoglobin 8.9 g/dL (12.0-16.0); Lymphocytes Absolute Auto 900 /uL (1100-4500); Lymphocytes Percent Auto 12.7 % (25-40); Mean Corpuscular HGB Conc 32.2 % (30-36); Mean Corpuscular Volume 74.5 fL (80-100); Monocytes Absolute Auto 600 /uL (0-900); Monocytes Percent Auto 8.9 % (3-14); Neutrophils Absolute Auto 5500 /uL (1500-7000); Neutrophils Percent Auto 77.7 % (50-75); Platelet Count 173 X10^3/uL (150-400); Red Blood Cell Count 3.71 X10^6/uL (4.0-5.2); Red Cell Distribution Width 24.9 % (11.6-14.8)
[2022-05-26 11:21] LABS: Anisocytosis 2+; Ovalocytes 1+
[2022-05-26 11:27] LABS: Lactate (Lactic Acid) 1.5 mmol/L (0.7-2.1)
[2022-05-26 11:29] LABS: Alanine Aminotransferase 11 IU/L (<35); Albumin 3.9 g/dL (3.5-5.0); Albumin Globulin Ratio 1.5 (1.0-2.8); Alkaline Phosphatase 61 U/L (38-126); Aspartate Aminotransferase 34 IU/L (14-36); BUN Creatinine Ratio 20.3 (6-22); Bilirubin Total 0.3 mg/dL (0.2-1.3); Blood Urea Nitrogen 13 mg/dL (7-17); Calcium 8.3 mg/dL (8.4-10.2); Carbon Dioxide 28 mmol/L (22-32); Chloride 103 mmol/L (98-107); Creatine Kinase 89 U/L (30-135); Estimated Glomerular Filt Rate > 60 mL/min (>60); Ethanol (ETOH) 137 mg/dL; Globulin 2.6 g/dL (1.7-4.1); Glucose 131 mg/dL (80-110); HEMOLYSIS < 15 (0-50); Potassium 4.3 mmol/L (3.4-5.1); Sodium 137 mmol/L (137-145); Total Protein 6.5 g/dL (6.3-8.2)
[2022-05-26 11:39] LABS: Troponin I < 0.012 ng/mL (0.01-0.034)
[2022-05-26 11:44] LABS: Procalcitonin 0.06 ng/mL (<0.5)
[2022-05-26] MEDS: propofoL 200 MG/20 ML VIAL 90 MG IV (12:08)
--- NOTE | 2022-05-26 12:10 | DI.RAD.S_ITS ---
PROCEDURE: XR SHOULDER RT MIN 2V INDICATIONS: post reduction TECHNIQUE: 2 views of the shoulder were acquired. COMPARISON: [facility], CR, XR SHOULDER RT MIN 2V, 05/26/2022, 9:31. FINDINGS: Bones: Status post interval closed reduction of previously dislocated right shoulder. Post reduction alignment appears anatomic. Degenerative changes of the right acromioclavicular joint. No definite fracture seen. No suspicious bony lesions. Visualized ribs appear intact. Soft tissues: No suspicious soft tissue calcifications. Median sternotomy wires are present. Prior valvular replacement. IMPRESSION: Status post closed reduction of the right shoulder. Post reduction alignment appears anatomic. No definite fracture seen. Degenerative changes of the acromioclavicular joint. Dictated by: Efrain Kate M.D. on 05/26/2022 at 12:56 Approved by: Efrain Kate M.D. on 05/26/2022 at 13:00
--- NOTE | 2022-05-26 12:17 | PC.NURSE ---
pt bagged for approx less then 1 min by RT
--- NOTE | 2022-05-26 15:04 | PC.NURSE ---
Assessed patient for discharge. Patient stated I can't see straight. I know you want to kick me out but you can't. Asked POLLUTION CONTROL CHEMIST who took patient to bathroom how she did ambulating since patient stated she needed a wheelchair. POLLUTION CONTROL CHEMIST stated patient told him I should just be admitted so I can sleep this off. Patient was able to ambulate from wheelchair to toilet and had risen from toilet and ambulated using wheelchair as a walker without POLLUTION CONTROL CHEMIST assist. Notified provider and charge nurse of statements.
[2022-05-26 15:47] LABS: Hematocrit 25.8 % (36-46); Hemoglobin 8.3 g/dL (12.0-16.0)
[2022-05-26] MEDS: OXYCODONE/ACETAMINOPHEN 5/325 TABLET 1 TAB PO (16:00)
[2022-05-26 17:02] LABS: COVID19 -Nasal RAPID Negative (Negative)
[2022-05-26] MEDS: PANTOPRAZOLE 40 MG VIAL IV (17:04)
[2022-05-26 17:58] LABS: Magnesium 1.9 mg/dL (1.6-2.3)
[2022-05-26 19:12] LABS: Hemoglobin 9.1 g/dL (12.0-16.0)
[2022-05-26] MEDS: HYDROMORPHONE 0.5 MG INJ IV (21:03)
[2022-05-26] MEDS: SODIUM CHLORIDE 0.9% FLUSH 10 ML IV (21:03)
[2022-05-26] MEDS: GABAPENTIN 300 MG CAPSULE 900 MG PO (22:17)
--- NOTE | 2022-05-26 22:25 | PC.NURSE ---
At 2020 this HOUSE CALLS NURSE PRACTITIONER started putting on seizure pads when the pt said I will get claustrophobia with those on.
[2022-05-26] MEDS: QUETIAPINE 100 MG TABLET 400 MG PO (22:47)
--- NOTE | 2022-05-26 23:02 | PC.NURSE ---
2020 Pt. admitted to room 215, oriented to her room. Instructed to call for assistance if she needed to get OOB. History of multiple falls & C/O dizziness. Call light with in reach & bed alarm activated. Will cont. POC & monitor.
[2022-05-26] MEDS: OXYCODONE IR 5 MG TABLET PO (23:38)
[2022-05-27] VITALS (14 sets, daily range): BP systolic 97–184; BP diastolic 51–85; PULSE 84–128; RESP 16–19; TEMP 36.2–37.3; O2SAT 95–100
[2022-05-27] MEDS: LORazepam 0.5 MG TABLET PO (00:23)
--- NOTE | 2022-05-27 00:25 | PC.NURSE ---
Woke up with restless legs, requested Lorazepam & SCD's. Will cont. POc & monitor.
[2022-05-27] MEDS: SODIUM CHLORIDE 0.9% FLUSH 10 ML IV ×3 (02:27→21:47)
[2022-05-27] MEDS: HYDROMORPHONE 0.5 MG INJ IV ×5 (02:28→23:41)
--- NOTE | 2022-05-27 05:49 | P.HP_ITS ---
History of Present Illness History of Present Illness Date Patient Seen: 05/26/22 Time Patient Seen: 17:19 Chief complaint: GLF Narrative: Shaista Corley is a 66-year-old female with an extensive history unstable gait uses a cane at baseline, repeat EMS runs and ED 05/11& 05/12 visits for falls, and alcohol abuse who presented to the ED today after 3 reported falls in the past 24 hours complaining of shoulder pain was found to be intoxicated did advise that she had a bottle of wine this morning she present dizzy, Febrile, tachycardic, tachypneic with hypertensive urgency. Patient was also found to be anemic and guaiac positive in the ED. blood pressures 170/103, 174/118, 182/93, heart rate 108-129. Admit temp 99.4?, BP 140/61, 128, 16, 95% on room air. Initial H&H 8.4/27.6, repeat 8.3/25, MCV 74.5, MCH 24, glucose 131, tox screen was positive for benzos and tricyclic antidepressants, lactate, procalcitonin, urinalysis, COVID were all negative. ETOH 137, stool was guaiac positive, head CT was negative for any acute process, C-spine was negative for any acute process. Right shoulder x-ray demonstrated anterior dislocation shoulder was reduced in ED. Chest x-ray possible vascular crowding versus mild lung disease infectious versus edema. Patient admitted for ground level fall frequent with right shoulder dislocation secondary to alcohol intoxication, and lower GI bleed, blood-loss anemia, and hypertensive urgency. On admit unable to obtain appropriate ROS HPI or family medical history due to intoxication. Patient denies chest pain, shortness in breath, headache, changes in vision, difficulty swallowing, speech impairment, weakness, numbness, tingling, LOC, fever, body aches, chills, cough, recent exposure to illness, abdominal pain, nausea, vomiting, urinary incontinence/retention, dysuria, frequency, urgency, hematuria, bowel changes, constipation, incontinence, melena, rashes, recent changes to medication, illness. Patient History Family & Social History Social History: household members none Safety & Behavioral: Feels Safe in Current Yes Environment Been Physically Hurt or No Threatened By a Person Tobacco & Substance use: Smoking Status Never smoker alcohol intake current alcohol intake frequency 3 or more drinks per day Substance Use Type does not use Meds Home Medications and Allergies Home Medications Medication Instructions Recorded Confirmed Type Ventolin HFA 1 - 2 puff inhalation QMONTH PRN 05/12/22 05/26/22 History Shortness Of Breath acyclovir 400 mg tablet 400 mg PO PRN PRN Cold Sores 05/12/22 05/26/22 History bupropion HCl 150 mg 24 hr tablet, 150 mg PO DAILY 05/12/22 05/26/22 History extended release disulfiram 250 mg PO DAILY 05/12/22 05/26/22 History duloxetine 60 mg PO DAILY 05/12/22 05/26/22 History gabapentin 300 mg capsule 900 mg PO BEDTIME 05/12/22 05/26/22 History lamotrigine 200 mg tablet 200 mg PO DAILY 05/12/22 05/26/22 History lorazepam 0.5 mg tablet (Ativan) 0.5 mg PO PRN PRN Anxiety 05/12/22 05/26/22 History metoprolol succinate 25 mg 25 mg PO DAILY 05/12/22 05/26/22 History tablet,extended release 24 hr ondansetron 4 mg disintegrating 4 mg PO PRN PRN Nausea 05/12/22 05/26/22 History tablet polyethylene glycol 3350 17 17 g PO DAILY 05/12/22 05/26/22 History gram/dose oral powder (Miralax) pravastatin 40 mg PO BEDTIME 05/12/22 05/26/22 History quetiapine 200 mg tablet 400 mg PO BEDTIME 05/12/22 05/26/22 History tizanidine 4 mg PO TID spasms 05/12/22 05/26/22 History Allergies Allergy/AdvReac Type Severity Reaction Status Date / Time hydrocodone [From VICODIN] Allergy Unknown Verified 05/26/22 17:23 Review of Systems Review of Systems Narrative: Unable to obtain accurate ROS due to intoxication Exam Vital Signs (past 8 hours): - 05/27/22 00:05 Temperature 99.1 F Pulse Rate 128 H Respiratory Rate 16 Blood Pressure 140/61 Pulse Oximetry 95 Oxygen Flow Rate 0 Oxygen Delivery Method Room Air Oxygen Flow Rate 0 Narrative Exam Narrative: GENERAL:? Alert 58-year-old female anxious and in [no acute] distress, appears nontoxic. HEENT: Head atraumatic,EOMI, pupils reactive, face symmetric, [moist] mucous membranes CARDIOVASCULAR: Regular rate and rhythm without murmurs, rubs or gallops. RESPIRATORY: Breath sounds equal bilaterally in all lobes , no wheezes rales or rhonchi. ABDOMEN: Soft, nontender.? Normoactive bowel sounds all 4 quadrants.? No guarding or rebound. EXTREMITIES: Normal range of motion, no clubbing or edema.? Neurovascularly intact. Right shoulder pain no clavicle step-off moving fingertips distal radial intact no obvious bony NEUROLOGICAL: Alert and oriented, but intoxicated.? Moving all extremities SKIN: Warm, dry, no laceration, no petechiae, no rashes or lesions. Objective Labs 05/26/22 19:00 05/26/22 11:00 Labs: Laboratory Results - last 24 hr 05/26/22 05/26/22 05/26/22 10:40 10:40 11:00 WBC 7.0 RBC 3.71 L Hgb 8.9 L Hct 27.6 L MCV 74.5 L MCH 24.0 L MCHC 32.2 RDW 24.9 H Plt Count 173 Neut % (Auto) 77.7 H Lymph % (Auto) 12.7 L Gooding % (Auto) 8.9 Eos % (Auto) 0.4 L Baso % (Auto) 0.3 Neut # (Auto) 5500 Lymph # (Auto) 900 L Gooding # (Auto) 600 Eos # (Auto) 0 Baso # (Auto) 0 RBC Morphology Not Reportable Anisocytosis 2+ H Ovalocytes 1+ H Sodium Potassium Chloride Carbon Dioxide BUN Creatinine Estimated GFR BUN/Creatinine Ratio Glucose Lactate Calcium Magnesium Total Bilirubin AST ALT Alkaline Phosphatase Total Creatine Kinase CK-MB (CK-2) CK-MB (CK-2) Rel Index Troponin I Total Protein Albumin Globulin Albumin/Globulin Ratio Procalcitonin Urine Color Yellow Urine Appearance Sl cloudy Urine pH 5.5 Ur Specific Chandler 1.025 Urine Protein Trace H Urine Glucose (UA) Negative Urine Ketones Negative Urine Occult Blood Negative Urine Nitrate Negative Urine Bilirubin Negative Urine Urobilinogen 0.2 Ur Leukocyte Esterase Negative Urine RBC None seen Urine WBC None seen Ur Squamous Epith Cells 1-5 /hpf Urine Bacteria None seen Ur Culture Indicated? Cult not indicated U Opiates 300ng/mL cut Negative Ur Oxycodone Screen Negative Urine Methadone Screen Negative Ur Barbiturates Screen Negative U Tricyclic Antidepress Positive H Ur Phencyclidine Scrn Negative Ur Amphetamines Screen Negative U Methamphetamines Scrn Negative Ur MDMA Scrn (Ecstasy) Negative U Benzodiazepines Scrn Positive H Urine Cocaine Screen Negative U Marijuana (THC) Screen Negative Ethyl Alcohol SARS-CoV-2 (PCR) 05/26/22 05/26/22 05/26/22 11:00 11:00 11:00 WBC RBC Hgb Hct MCV MCH MCHC RDW Plt Count Neut % (Auto) Lymph % (Auto) Gooding % (Auto) Eos % (Auto) Baso % (Auto) Neut # (Auto) Lymph # (Auto) Gooding # (Auto) Eos # (Auto) Baso # (Auto) RBC Morphology Anisocytosis Ovalocytes Sodium 137 Potassium 4.3 Chloride 103 Carbon Dioxide 28 BUN 13 Creatinine 0.64 Estimated GFR > 60 BUN/Creatinine Ratio 20.3 Glucose 131 H Lactate 1.5 Calcium 8.3 L Magnesium Total Bilirubin 0.3 AST 34 ALT 11 Alkaline Phosphatase 61 Total Creatine Kinase 89 CK-MB (CK-2) TNP CK-MB (CK-2) Rel Index TNP Troponin I < 0.012 Total Protein 6.5 Albumin 3.9 Globulin 2.6 Albumin/Globulin Ratio 1.5 Procalcitonin 0.06 Urine Color Urine Appearance Urine pH Ur Specific Chandler Urine Protein Urine Glucose (UA) Urine Ketones Urine Occult Blood Urine Nitrate Urine Bilirubin Urine Urobilinogen Ur Leukocyte Esterase Urine RBC Urine WBC Ur Squamous Epith Cells Urine Bacteria Ur Culture Indicated? U Opiates 300ng/mL cut Ur Oxycodone Screen Urine Methadone Screen Ur Barbiturates Screen U Tricyclic Antidepress Ur Phencyclidine Scrn Ur Amphetamines Screen U Methamphetamines Scrn Ur MDMA Scrn (Ecstasy) U Benzodiazepines Scrn Urine Cocaine Screen U Marijuana (THC) Screen Ethyl Alcohol 137 H SARS-CoV-2 (PCR) 05/26/22 05/26/22 05/26/22 11:00 15:38 16:14 WBC RBC Hgb 8.3 L Hct 25.8 L MCV MCH MCHC RDW Plt Count Neut % (Auto) Lymph % (Auto) Gooding % (Auto) Eos % (Auto) Baso % (Auto) Neut # (Auto) Lymph # (Auto) Gooding # (Auto) Eos # (Auto) Baso # (Auto) RBC Morphology Anisocytosis Ovalocytes Sodium Potassium Chloride Carbon Dioxide BUN Creatinine Estimated GFR BUN/Creatinine Ratio Glucose Lactate Calcium Magnesium 1.9 Total Bilirubin AST ALT Alkaline Phosphatase Total Creatine Kinase CK-MB (CK-2) CK-MB (CK-2) Rel Index Troponin I Total Protein Albumin Globulin Albumin/Globulin Ratio Procalcitonin Urine Color Urine Appearance Urine pH Ur Specific Chandler Urine Protein Urine Glucose (UA) Urine Ketones Urine Occult Blood Urine Nitrate Urine Bilirubin Urine Urobilinogen Ur Leukocyte Esterase Urine RBC Urine WBC Ur Squamous Epith Cells Urine Bacteria Ur Culture Indicated? U Opiates 300ng/mL cut Ur Oxycodone Screen Urine Methadone Screen Ur Barbiturates Screen U Tricyclic Antidepress Ur Phencyclidine Scrn Ur Amphetamines Screen U Methamphetamines Scrn Ur MDMA Scrn (Ecstasy) U Benzodiazepines Scrn Urine Cocaine Screen U Marijuana (THC) Screen Ethyl Alcohol SARS-CoV-2 (PCR) Negative 05/26/22 19:00 WBC RBC Hgb 9.1 L Hct MCV MCH MCHC RDW Plt Count Neut % (Auto) Lymph % (Auto) Gooding % (Auto) Eos % (Auto) Baso % (Auto) Neut # (Auto) Lymph # (Auto) Gooding # (Auto) Eos # (Auto) Baso # (Auto) RBC Morphology Anisocytosis Ovalocytes Sodium Potassium Chloride Carbon Dioxide BUN Creatinine Estimated GFR BUN/Creatinine Ratio Glucose Lactate Calcium Magnesium Total Bilirubin AST ALT Alkaline Phosphatase Total Creatine Kinase CK-MB (CK-2) CK-MB (CK-2) Rel Index Troponin I Total Protein Albumin Globulin Albumin/Globulin Ratio Procalcitonin Urine Color Urine Appearance Urine pH Ur Specific Chandler Urine Protein Urine Glucose (UA) Urine Ketones Urine Occult Blood Urine Nitrate Urine Bilirubin Urine Urobilinogen Ur Leukocyte Esterase Urine RBC Urine WBC Ur Squamous Epith Cells Urine Bacteria Ur Culture Indicated? U Opiates 300ng/mL cut Ur Oxycodone Screen Urine Methadone Screen Ur Barbiturates Screen U Tricyclic Antidepress Ur Phencyclidine Scrn Ur Amphetamines Screen U Methamphetamines Scrn Ur MDMA Scrn (Ecstasy) U Benzodiazepines Scrn Urine Cocaine Screen U Marijuana (THC) Screen Ethyl Alcohol SARS-CoV-2 (PCR) Assessment & Plan Assessment & Plan narrative: Shaista Corley is a 66-year-old female with an extensive history HTN, Depression, obesity, unstable gait uses a cane at baseline, repeat EMS runs and ED 05/11& 05/12 visits for falls, and alcohol abuse who presented to the ED today after 3 reported falls in the past 24 hours complaining of shoulder pain was found to be intoxicated did advise that she had a bottle of wine this morning she present dizzy, Febrile, tachycardic, tachypneic with hypertensive urgency. Patient was also found to be anemic and guaiac positive in the ED. blood pressures 170/103, 174/118, 182/93, heart rate 108-129. Admit temp 99.4?, BP 140/61, 128, 16, 95% on room air. Initial H&H 8.4/27.6, repeat 8.05/27, MCV 74.5, MCH 24, glucose 131, tox screen was positive for benzos and tricyclic antidepressants, lactate, procalcitonin, urinalysis, COVID were all negative. ETOH 137, stool was guaiac positive, head CT was negative for any acute process, C-spine was negative for any acute process. Right shoulder x- ray demonstrated anterior dislocation shoulder was reduced in ED. Chest x-ray possible vascular crowding versus mild lung disease infectious versus edema. Patient admitted for ground level fall frequent with right shoulder dislocation secondary to alcohol intoxication, and lower GI bleed, blood-loss anemia, and hypertensive urgency. 1. Ground level fall, recurrent, resulting in right shoulder dislocation, acute on chronic, secondary to alcohol abuse/intoxication, present on admission -right shoulder was reduced in ED -suspect patient also may be contributing to falls per polypharmacy as she has listed tenacity, Seroquel, bupropion, duloxetine, gabapentin, Lamictal, and lorazepam on her medication list. -admit ETOH 137 -patient placed on CIWA protocol, seizure precautions, aspiration precautions -PT/OT evaluation -NS at 60 cc/HR -thiamine, folic acid, vitamin-A 2. Lower GI bleed, was secondary blood loss anemia, acute, present on admission -Initial H&H 8.4/27.6, repeat 8.05/27, MCV 74.5, MCH 24 -Protonix IV 40 mg b.i.d. -continue to trend H and H and monitor for bleeding -guaiac-positive -patient NPO at midnight -Dr. Louis to consult -Scope tomorrow -holding VTE medication prophylaxis -iron studies, as anemia may be secondary to alcohol abuse 3. Hypertensive urgency in the setting of hypertension, essential, acute on chronic, present on admission -ED. blood pressures 170/103, 174/118, 182/93, heart rate 108-129. -admit BP 140/61 -continue metoprolol 4. Depression with anxiety, acute on chronic, present on admission -due to my concerns regarding polypharmacy and unsure what patient is actually taking holding lorazepam, duloxetine, Seroquel, bupropion -continuing Lamictal 5. Obesity, moderate, acute on chronic, present on admission -as evidence by BMI 39.7 -dietary consult ordered regarding nutritional education and information for dietary, lifestyle, exercise, and weight changes. -the patient is at much higher risk for medical and surgical complications due to obesity as it relates to chronic illnesses:, and acute illness. The patient's obesity increases the difficulty and complexity of medical and/or surgical interventions, management and increases the chances of poor outcome such as morbidity and mortality as well as impaired wound healing. Code status:Full Surrogate decision maker: Daughter Zuri LOMBARDI PCR: Negative DVT/VTE prophylaxis: Holding medication, SCDs only Disposition: Patient admitted for observation expected length of stay less than 2 midnights for alcohol withdrawal, and evaluation of lower GI bleed. I have utilized all available immediate resources to obtain, update, or review the patient's current medications. I confirmed that the patient's advanced care plan is present, Code status is documented and/or surrogate decision maker is listed in the patient's medical record. I have personally reviewed patient's chart notes from PCP, specialists, diagnostic imaging, and laboratory results. Quality VTE Deep Vein Thrombosis/Pulmonary Embolism Present on Admission: No
[2022-05-27] MEDS: SODIUM CHLORIDE 0.9% 500 ML 60 ML IV ×2 (06:33→17:35)
[2022-05-27 07:18] LABS: INR 1.1 (0.9-1.3); Prothrombin Time 12.6 SECONDS (10.1-12.7)
[2022-05-27 07:22] LABS: Add Manual Diff / Slide Review NO; Basophils Absolute Auto 0 /uL (0-100); Basophils Percent Auto 0.7 % (0-2); Eosinophils Absolute Auto 100 /uL (0-450); Eosinophils Percent Auto 2.1 % (2-4); Hematocrit 30.7 % (36-46); Hemoglobin 9.7 g/dL (12.0-16.0); Lymphocytes Absolute Auto 1900 /uL (1100-4500); Lymphocytes Percent Auto 32.7 % (25-40); Mean Corpuscular HGB Conc 31.5 % (30-36); Mean Corpuscular Hemoglobin 23.4 PG (26-34); Mean Corpuscular Volume 74.3 fL (80-100); Monocytes Absolute Auto 800 /uL (0-900); Monocytes Percent Auto 13.9 % (3-14); Neutrophils Absolute Auto 2900 /uL (1500-7000); Neutrophils Percent Auto 50.6 % (50-75); Red Blood Cell Count 4.13 X10^6/uL (4.0-5.2); Red Cell Distribution Width 24.7 % (11.6-14.8); White Blood Cell Count 5.7 X10^3/uL (4.5-11.0)
[2022-05-27 07:37] LABS: BUN Creatinine Ratio 21.4 (6-22); Blood Urea Nitrogen 12 mg/dL (7-17); Calcium 8.6 mg/dL (8.4-10.2); Carbon Dioxide 32 mmol/L (22-32); Chloride 98 mmol/L (98-107); Estimated Glomerular Filt Rate > 60 mL/min (>60); Glucose 114 mg/dL (80-110); HEMOLYSIS 28 (0-50); Potassium 4.5 mmol/L (3.4-5.1); Sodium 134 mmol/L (137-145)
[2022-05-27 07:40] LABS: Anisocytosis 2+; Poikilocytosis 1+
[2022-05-27 07:44] LABS: Magnesium 1.8 mg/dL (1.6-2.3)
[2022-05-27] MEDS: METOPROLOL ER 25 MG TABLET PO (08:20)
[2022-05-27] MEDS: FOLIC ACID 1 MG TABLET PO (08:20)
[2022-05-27] MEDS: MULTIVITAMIN 1 TABLET 1 TAB PO (08:20)
[2022-05-27] MEDS: polyethylene glycoL 3350 17 GM POWD.PACK PO (08:21)
[2022-05-27] MEDS: lamoTRIgine 100 MG TABLET 200 MG PO (08:21)
[2022-05-27] MEDS: OXYCODONE IR 5 MG TABLET PO ×2 (08:22→21:53)
[2022-05-27] MEDS: PANTOPRAZOLE 40 MG VIAL IV ×2 (08:23→21:46)
[2022-05-27] MEDS: THIAMINE 100 MG TABLET PO (08:23)
--- NOTE | 2022-05-27 10:28 | PM.PN.1 ---
Subjective Subjective Interval history: Shaista Corley is a 66-year-old female with an extensive history unstable gait uses a cane at baseline, repeat EMS runs and ED 05/11& 05/12 visits for falls, and alcohol abuse who presented to the ED after 3 reported falls in the past 24 hours complaining of shoulder pain was found to be intoxicated did advise that she had a bottle of wine this morning she present dizzy, Febrile, tachycardic, tachypneic with hypertensive urgency.? Patient was also found to be anemic and guaiac positive in the ED. blood pressures 170/103, 174/118, 182/93, heart rate 108-129. Main complaint today is inadequate pain control. Pain medication adjusted and this will be followed. Has been seen by General surgery and on conversation with the surgeon, they are not entertaining any scoping at this time due to alcohol withdrawal. Recommend scoping when patient is stable and possibly as an outpatient. Recommended continuing following CBC and medical management at this time. Claims she is having difficulty sleeping. Exam Vital Signs (past 8 hours): - 05/27/22 06:50 05/27/22 08:20 05/27/22 08:55 Temperature 98.3 F 97.6 F Pulse Rate 119 H 120 H 122 H Respiratory Rate 19 17 Blood Pressure 141/84 H 141/84 H 182/85 H Pulse Oximetry 97 95 Oxygen Flow Rate 0 0 05/27/22 08:50 Temperature Pulse Rate 84 Respiratory Rate Blood Pressure 145/82 H Pulse Oximetry Oxygen Flow Rate Oxygen Delivery Method Room Air Oxygen Flow Rate 0 Narrative Exam Narrative: GENERAL:? Alert 58-year-old female anxious and in no acute distress, appears nontoxic. HEENT: Head atraumatic,EOMI, pupils reactive, face symmetric, moist mucous membranes CARDIOVASCULAR: Regular rate and rhythm without murmurs, rubs or gallops. RESPIRATORY: Breath sounds equal bilaterally in all lobes , no wheezes rales or rhonchi. ABDOMEN: Soft, nontender.? Normoactive bowel sounds all 4 quadrants.? No guarding or rebound. EXTREMITIES: Normal range of motion, no clubbing or edema.? Neurovascularly intact. Right shoulder pain no clavicle step-off moving fingertips distal radial intact no obvious bony deformity. General tenderness of right shoulder. NEUROLOGICAL: Alert and oriented, but intoxicated.? Moving all extremities SKIN: Warm, dry, no laceration, no petechiae, no rashes or lesions. Objective Labs 05/27/22 06:33 05/27/22 06:33 Labs: Laboratory Results - last 24 hr 05/26/22 05/26/22 05/26/22 10:40 10:40 11:00 WBC 7.0 RBC 3.71 L Hgb 8.9 L Hct 27.6 L MCV 74.5 L MCH 24.0 L MCHC 32.2 RDW 24.9 H Plt Count 173 Neut % (Auto) 77.7 H Lymph % (Auto) 12.7 L [place] % (Auto) 8.9 Eos % (Auto) 0.4 L Baso % (Auto) 0.3 Neut # (Auto) 5500 Lymph # (Auto) 900 L [place] # (Auto) 600 Eos # (Auto) 0 Baso # (Auto) 0 RBC Morphology Not Reportable Poikilocytosis Anisocytosis 2+ H Ovalocytes 1+ H PT INR Sodium Potassium Chloride Carbon Dioxide BUN Creatinine Estimated GFR BUN/Creatinine Ratio Glucose Lactate Calcium Magnesium Total Bilirubin AST ALT Alkaline Phosphatase Total Creatine Kinase CK-MB (CK-2) CK-MB (CK-2) Rel Index Troponin I Total Protein Albumin Globulin Albumin/Globulin Ratio Procalcitonin Urine Color Yellow Urine Appearance Sl cloudy Urine pH 5.5 Ur Specific [place] 1.025 Urine Protein Trace H Urine Glucose (UA) Negative Urine Ketones Negative Urine Occult Blood Negative Urine Nitrate Negative Urine Bilirubin Negative Urine Urobilinogen 0.2 Ur Leukocyte Esterase Negative Urine RBC None seen Urine WBC None seen Ur Squamous Epith Cells 1-5 /hpf Urine Bacteria None seen Ur Culture Indicated? Cult not indicated U Opiates 300ng/mL cut Negative Ur Oxycodone Screen Negative Urine Methadone Screen Negative Ur Barbiturates Screen Negative U Tricyclic Antidepress Positive H Ur Phencyclidine Scrn Negative Ur Amphetamines Screen Negative U Methamphetamines Scrn Negative Ur MDMA Scrn (Ecstasy) Negative U Benzodiazepines Scrn Positive H Urine Cocaine Screen Negative U Marijuana (THC) Screen Negative Ethyl Alcohol SARS-CoV-2 (PCR) 05/26/22 05/26/22 05/26/22 11:00 11:00 11:00 WBC RBC Hgb Hct MCV MCH MCHC RDW Plt Count Neut % (Auto) Lymph % (Auto) [place] % (Auto) Eos % (Auto) Baso % (Auto) Neut # (Auto) Lymph # (Auto) [place] # (Auto) Eos # (Auto) Baso # (Auto) RBC Morphology Poikilocytosis Anisocytosis Ovalocytes PT INR Sodium 137 Potassium 4.3 Chloride 103 Carbon Dioxide 28 BUN 13 Creatinine 0.64 Estimated GFR > 60 BUN/Creatinine Ratio 20.3 Glucose 131 H Lactate 1.5 Calcium 8.3 L Magnesium Total Bilirubin 0.3 AST 34 ALT 11 Alkaline Phosphatase 61 Total Creatine Kinase 89 CK-MB (CK-2) TNP CK-MB (CK-2) Rel Index TNP Troponin I < 0.012 Total Protein 6.5 Albumin 3.9 Globulin 2.6 Albumin/Globulin Ratio 1.5 Procalcitonin 0.06 Urine Color Urine Appearance Urine pH Ur Specific [place] Urine Protein Urine Glucose (UA) Urine Ketones Urine Occult Blood Urine Nitrate Urine Bilirubin Urine Urobilinogen Ur Leukocyte Esterase Urine RBC Urine WBC Ur Squamous Epith Cells Urine Bacteria Ur Culture Indicated? U Opiates 300ng/mL cut Ur Oxycodone Screen Urine Methadone Screen Ur Barbiturates Screen U Tricyclic Antidepress Ur Phencyclidine Scrn Ur Amphetamines Screen U Methamphetamines Scrn Ur MDMA Scrn (Ecstasy) U Benzodiazepines Scrn Urine Cocaine Screen U Marijuana (THC) Screen Ethyl Alcohol 137 H SARS-CoV-2 (PCR) 05/26/22 05/26/22 05/26/22 11:00 15:38 16:14 WBC RBC Hgb 8.3 L Hct 25.8 L MCV MCH MCHC RDW Plt Count Neut % (Auto) Lymph % (Auto) [place] % (Auto) Eos % (Auto) Baso % (Auto) Neut # (Auto) Lymph # (Auto) [place] # (Auto) Eos # (Auto) Baso # (Auto) RBC Morphology Poikilocytosis Anisocytosis Ovalocytes PT INR Sodium Potassium Chloride Carbon Dioxide BUN Creatinine Estimated GFR BUN/Creatinine Ratio Glucose Lactate Calcium Magnesium 1.9 Total Bilirubin AST ALT Alkaline Phosphatase Total Creatine Kinase CK-MB (CK-2) CK-MB (CK-2) Rel Index Troponin I Total Protein Albumin Globulin Albumin/Globulin Ratio Procalcitonin Urine Color Urine Appearance Urine pH Ur Specific [place] Urine Protein Urine Glucose (UA) Urine Ketones Urine Occult Blood Urine Nitrate Urine Bilirubin Urine Urobilinogen Ur Leukocyte Esterase Urine RBC Urine WBC Ur Squamous Epith Cells Urine Bacteria Ur Culture Indicated? U Opiates 300ng/mL cut Ur Oxycodone Screen Urine Methadone Screen Ur Barbiturates Screen U Tricyclic Antidepress Ur Phencyclidine Scrn Ur Amphetamines Screen U Methamphetamines Scrn Ur MDMA Scrn (Ecstasy) U Benzodiazepines Scrn Urine Cocaine Screen U Marijuana (THC) Screen Ethyl Alcohol SARS-CoV-2 (PCR) Negative 05/26/22 05/27/22 05/27/22 19:00 06:33 06:33 WBC 5.7 RBC 4.13 Hgb 9.1 L 9.7 L Hct 30.7 L MCV 74.3 L MCH 23.4 L MCHC 31.5 RDW 24.7 H Plt Count TNP Neut % (Auto) 50.6 D Lymph % (Auto) 32.7 D [place] % (Auto) 13.9 Eos % (Auto) 2.1 Baso % (Auto) 0.7 Neut # (Auto) 2900 Lymph # (Auto) 1900 [place] # (Auto) 800 Eos # (Auto) 100 Baso # (Auto) 0 RBC Morphology Not Reportable Poikilocytosis 1+ H Anisocytosis 2+ H Ovalocytes PT INR Sodium 134 L Potassium 4.5 Chloride 98 Carbon Dioxide 32 BUN 12 Creatinine 0.56 Estimated GFR > 60 BUN/Creatinine Ratio 21.4 Glucose 114 H Lactate Calcium 8.6 Magnesium Total Bilirubin AST ALT Alkaline Phosphatase Total Creatine Kinase CK-MB (CK-2) CK-MB (CK-2) Rel Index Troponin I Total Protein Albumin Globulin Albumin/Globulin Ratio Procalcitonin Urine Color Urine Appearance Urine pH Ur Specific [place] Urine Protein Urine Glucose (UA) Urine Ketones Urine Occult Blood Urine Nitrate Urine Bilirubin Urine Urobilinogen Ur Leukocyte Esterase Urine RBC Urine WBC Ur Squamous Epith Cells Urine Bacteria Ur Culture Indicated? U Opiates 300ng/mL cut Ur Oxycodone Screen Urine Methadone Screen Ur Barbiturates Screen U Tricyclic Antidepress Ur Phencyclidine Scrn Ur Amphetamines Screen U Methamphetamines Scrn Ur MDMA Scrn (Ecstasy) U Benzodiazepines Scrn Urine Cocaine Screen U Marijuana (THC) Screen Ethyl Alcohol SARS-CoV-2 (PCR) 05/27/22 05/27/22 06:33 06:33 WBC RBC Hgb Hct MCV MCH MCHC RDW Plt Count Neut % (Auto) Lymph % (Auto) [place] % (Auto) Eos % (Auto) Baso % (Auto) Neut # (Auto) Lymph # (Auto) [place] # (Auto) Eos # (Auto) Baso # (Auto) RBC Morphology Poikilocytosis Anisocytosis Ovalocytes PT 12.6 INR 1.1 Sodium Potassium Chloride Carbon Dioxide BUN Creatinine Estimated GFR BUN/Creatinine Ratio Glucose Lactate Calcium Magnesium 1.8 Total Bilirubin AST ALT Alkaline Phosphatase Total Creatine Kinase CK-MB (CK-2) CK-MB (CK-2) Rel Index Troponin I Total Protein Albumin Globulin Albumin/Globulin Ratio Procalcitonin Urine Color Urine Appearance Urine pH Ur Specific [place] Urine Protein Urine Glucose (UA) Urine Ketones Urine Occult Blood Urine Nitrate Urine Bilirubin Urine Urobilinogen Ur Leukocyte Esterase Urine RBC Urine WBC Ur Squamous Epith Cells Urine Bacteria Ur Culture Indicated? U Opiates 300ng/mL cut Ur Oxycodone Screen Urine Methadone Screen Ur Barbiturates Screen U Tricyclic Antidepress Ur Phencyclidine Scrn Ur Amphetamines Screen U Methamphetamines Scrn Ur MDMA Scrn (Ecstasy) U Benzodiazepines Scrn Urine Cocaine Screen U Marijuana (THC) Screen Ethyl Alcohol SARS-CoV-2 (PCR) COUNT INCLUDES THE [facility] Social History household members: none Smoking Status: Never smoker alcohol intake: current Assessment & Plan Assessment & Plan narrative: 1. Ground level fall, recurrent, resulting in right shoulder dislocation, acute on chronic, secondary to alcohol abuse/intoxication, present on admission -right shoulder was reduced in ED -suspect patient also may be contributing to falls per polypharmacy as she has listed medication of Seroquel, bupropion, duloxetine, gabapentin, Lamictal, and lorazepam on her medication list. -admit ETOH 137 -patient placed on CIWA protocol, seizure precautions, aspiration precautions -PT/OT evaluation -NS at 60 cc/HR -thiamine, folic acid, vitamin-A -had a 2 year sobriety prior to this episode of alcohol intake. Recently had 2 brothers passed within the last couple weeks. Instead of calling her sponsor with AA she felt drinking would help. She will reconnect with her sponsor. 2. Lower GI bleed, was secondary blood loss anemia, acute, present on admission -Initial H&H 8.4/27.6, repeat 8.3/25, MCV 74.5, MCH 24 on presentation. Hemoglobin is improved to 9.7. Continue to follow. -Protonix IV 40 mg b.i.d. continue. -continue to trend H and H and monitor for bleeding -guaiac-positive on presentation -patient NPO this past midnight, may have oral intake due to no planned scope. -holding VTE medication prophylaxis -iron studies still pending, as anemia may be secondary to alcohol abuse 3. Hypertensive urgency in the setting of hypertension, essential, acute on chronic, present on admission -ED. blood pressures 170/103, 174/118, 182/93, heart rate 108-129 on presentation. Hypertension remains at 182/85 this morning with a pulse rate of 122. -continue metoprolol and add hydralazine as needed. 4. Depression with anxiety, acute on chronic, present on admission -due to concerns regarding polypharmacy and unsure what patient is actually taking holding lorazepam, duloxetine, Seroquel, bupropion -continue -continuing Lamictal 5.? Obesity, moderate, acute on chronic, present on admission -as evidence by BMI 39.7 -dietary consult ordered regarding nutritional education and information for dietary, lifestyle, exercise, and weight changes. -the patient is at much higher risk for medical and surgical complications due to obesity as it relates to chronic illnesses:, and acute illness.? The patient's obesity increases the difficulty and complexity of medical and/or surgical interventions, management and increases the chances of poor outcome such as morbidity and mortality as well as impaired wound healing. 6. Insomnia. Treat with trazodone 25 mg p.o. q.h.s. and patient has melatonin as needed Code status:Full Surrogate decision maker:? Daughter Zuri LOMBARDI PCR:? Negative DVT/VTE prophylaxis:? Holding medication, SCDs only Quality VTE Deep Vein Thrombosis/Pulmonary Embolism Present on Admission: No
[2022-05-27] MEDS: HYDROMORPHONE 1 MG INJ IV ×3 (10:36→18:53)
[2022-05-27] MEDS: LORazepam 2 MG/ML INJ IV ×3 (10:37→18:53)
--- NOTE | 2022-05-27 10:50 | P.CONS_ITS ---
History of Present Illness Consult details Date Patient Seen: 05/27/22 Time Patient Seen: 10:51 Chief complaint: GLF Narrative: 66-year-old woman with polysubstance abuse who was admitted last night due to multiple falls. Suspected withdrawal. She was noted to be moderately anemic with a hemoglobin of 8.9. Hemoglobin is up to 9.7 today. She does endorse black stools in the past several days. She has had a colonoscopy but it has been many many years. She has never had an EGD. She is currently being treated on the [facility] protocol for withdrawal. Meds Home Medications and Allergies Home Medications Medication Instructions Recorded Confirmed Type Ventolin HFA 1 - 2 puff inhalation QMONTH PRN 05/12/22 05/26/22 History Shortness Of Breath acyclovir 400 mg tablet 400 mg PO PRN PRN Cold Sores 05/12/22 05/26/22 History bupropion HCl 150 mg 24 hr tablet, 150 mg PO DAILY 05/12/22 05/26/22 History extended release disulfiram 250 mg PO DAILY 05/12/22 05/26/22 History duloxetine 60 mg PO DAILY 05/12/22 05/26/22 History gabapentin 300 mg capsule 900 mg PO BEDTIME 05/12/22 05/26/22 History lamotrigine 200 mg tablet 200 mg PO DAILY 05/12/22 05/26/22 History lorazepam 0.5 mg tablet (Ativan) 0.5 mg PO PRN PRN Anxiety 05/12/22 05/26/22 History metoprolol succinate 25 mg 25 mg PO DAILY 05/12/22 05/26/22 History tablet,extended release 24 hr ondansetron 4 mg disintegrating 4 mg PO PRN PRN Nausea 05/12/22 05/26/22 History tablet polyethylene glycol 3350 17 17 g PO DAILY 05/12/22 05/26/22 History gram/dose oral powder (Miralax) pravastatin 40 mg PO BEDTIME 05/12/22 05/26/22 History quetiapine 200 mg tablet 400 mg PO BEDTIME 05/12/22 05/26/22 History tizanidine 4 mg PO TID spasms 05/12/22 05/26/22 History Allergies Allergy/AdvReac Type Severity Reaction Status Date / Time hydrocodone [From VICODIN] Allergy Unknown Verified 05/26/22 17:23 Exam Vital Signs (past 8 hours): - 05/27/22 06:50 05/27/22 08:20 05/27/22 08:55 Temperature 98.3 F 97.6 F Pulse Rate 119 H 120 H 122 H Respiratory Rate 19 17 Blood Pressure 141/84 H 141/84 H 182/85 H Pulse Oximetry 97 95 Oxygen Flow Rate 0 0 05/27/22 08:50 05/27/22 10:47 Temperature 97.8 F Pulse Rate 84 103 H Respiratory Rate 17 Blood Pressure 145/82 H 119/51 L Pulse Oximetry 96 Oxygen Flow Rate 0 Oxygen Delivery Method Room Air Oxygen Flow Rate 0 GI Palpation: soft Psych Thought Process: confabulating Objective Labs 05/27/22 06:33 05/27/22 06:33 Labs: Laboratory Results - last 24 hr 05/26/22 05/26/22 05/26/22 10:40 10:40 11:00 WBC 7.0 RBC 3.71 L Hgb 8.9 L Hct 27.6 L MCV 74.5 L MCH 24.0 L MCHC 32.2 RDW 24.9 H Plt Count 173 Neut % (Auto) 77.7 H Lymph % (Auto) 12.7 L [place] % (Auto) 8.9 Eos % (Auto) 0.4 L Baso % (Auto) 0.3 Neut # (Auto) 5500 Lymph # (Auto) 900 L [place] # (Auto) 600 Eos # (Auto) 0 Baso # (Auto) 0 RBC Morphology Not Reportable Poikilocytosis Anisocytosis 2+ H Ovalocytes 1+ H PT INR Sodium Potassium Chloride Carbon Dioxide BUN Creatinine Estimated GFR BUN/Creatinine Ratio Glucose Lactate Calcium Magnesium Total Bilirubin AST ALT Alkaline Phosphatase Total Creatine Kinase CK-MB (CK-2) CK-MB (CK-2) Rel Index Troponin I Total Protein Albumin Globulin Albumin/Globulin Ratio Procalcitonin Urine Color Yellow Urine Appearance Sl cloudy Urine pH 5.5 Ur Specific [place] 1.025 Urine Protein Trace H Urine Glucose (UA) Negative Urine Ketones Negative Urine Occult Blood Negative Urine Nitrate Negative Urine Bilirubin Negative Urine Urobilinogen 0.2 Ur Leukocyte Esterase Negative Urine RBC None seen Urine WBC None seen Ur Squamous Epith Cells 1-5 /hpf Urine Bacteria None seen Ur Culture Indicated? Cult not indicated U Opiates 300ng/mL cut Negative Ur Oxycodone Screen Negative Urine Methadone Screen Negative Ur Barbiturates Screen Negative U Tricyclic Antidepress Positive H Ur Phencyclidine Scrn Negative Ur Amphetamines Screen Negative U Methamphetamines Scrn Negative Ur MDMA Scrn (Ecstasy) Negative U Benzodiazepines Scrn Positive H Urine Cocaine Screen Negative U Marijuana (THC) Screen Negative Ethyl Alcohol SARS-CoV-2 (PCR) 05/26/22 05/26/22 05/26/22 11:00 11:00 11:00 WBC RBC Hgb Hct MCV MCH MCHC RDW Plt Count Neut % (Auto) Lymph % (Auto) [place] % (Auto) Eos % (Auto) Baso % (Auto) Neut # (Auto) Lymph # (Auto) [place] # (Auto) Eos # (Auto) Baso # (Auto) RBC Morphology Poikilocytosis Anisocytosis Ovalocytes PT INR Sodium 137 Potassium 4.3 Chloride 103 Carbon Dioxide 28 BUN 13 Creatinine 0.64 Estimated GFR > 60 BUN/Creatinine Ratio 20.3 Glucose 131 H Lactate 1.5 Calcium 8.3 L Magnesium Total Bilirubin 0.3 AST 34 ALT 11 Alkaline Phosphatase 61 Total Creatine Kinase 89 CK-MB (CK-2) TNP CK-MB (CK-2) Rel Index TNP Troponin I < 0.012 Total Protein 6.5 Albumin 3.9 Globulin 2.6 Albumin/Globulin Ratio 1.5 Procalcitonin 0.06 Urine Color Urine Appearance Urine pH Ur Specific [place] Urine Protein Urine Glucose (UA) Urine Ketones Urine Occult Blood Urine Nitrate Urine Bilirubin Urine Urobilinogen Ur Leukocyte Esterase Urine RBC Urine WBC Ur Squamous Epith Cells Urine Bacteria Ur Culture Indicated? U Opiates 300ng/mL cut Ur Oxycodone Screen Urine Methadone Screen Ur Barbiturates Screen U Tricyclic Antidepress Ur Phencyclidine Scrn Ur Amphetamines Screen U Methamphetamines Scrn Ur MDMA Scrn (Ecstasy) U Benzodiazepines Scrn Urine Cocaine Screen U Marijuana (THC) Screen Ethyl Alcohol 137 H SARS-CoV-2 (PCR) 05/26/22 05/26/22 05/26/22 11:00 15:38 16:14 WBC RBC Hgb 8.3 L Hct 25.8 L MCV MCH MCHC RDW Plt Count Neut % (Auto) Lymph % (Auto) [place] % (Auto) Eos % (Auto) Baso % (Auto) Neut # (Auto) Lymph # (Auto) [place] # (Auto) Eos # (Auto) Baso # (Auto) RBC Morphology Poikilocytosis Anisocytosis Ovalocytes PT INR Sodium Potassium Chloride Carbon Dioxide BUN Creatinine Estimated GFR BUN/Creatinine Ratio Glucose Lactate Calcium Magnesium 1.9 Total Bilirubin AST ALT Alkaline Phosphatase Total Creatine Kinase CK-MB (CK-2) CK-MB (CK-2) Rel Index Troponin I Total Protein Albumin Globulin Albumin/Globulin Ratio Procalcitonin Urine Color Urine Appearance Urine pH Ur Specific [place] Urine Protein Urine Glucose (UA) Urine Ketones Urine Occult Blood Urine Nitrate Urine Bilirubin Urine Urobilinogen Ur Leukocyte Esterase Urine RBC Urine WBC Ur Squamous Epith Cells Urine Bacteria Ur Culture Indicated? U Opiates 300ng/mL cut Ur Oxycodone Screen Urine Methadone Screen Ur Barbiturates Screen U Tricyclic Antidepress Ur Phencyclidine Scrn Ur Amphetamines Screen U Methamphetamines Scrn Ur MDMA Scrn (Ecstasy) U Benzodiazepines Scrn Urine Cocaine Screen U Marijuana (THC) Screen Ethyl Alcohol SARS-CoV-2 (PCR) Negative 05/26/22 05/27/22 05/27/22 19:00 06:33 06:33 WBC 5.7 RBC 4.13 Hgb 9.1 L 9.7 L Hct 30.7 L MCV 74.3 L MCH 23.4 L MCHC 31.5 RDW 24.7 H Plt Count TNP Neut % (Auto) 50.6 D Lymph % (Auto) 32.7 D [place] % (Auto) 13.9 Eos % (Auto) 2.1 Baso % (Auto) 0.7 Neut # (Auto) 2900 Lymph # (Auto) 1900 [place] # (Auto) 800 Eos # (Auto) 100 Baso # (Auto) 0 RBC Morphology Not Reportable Poikilocytosis 1+ H Anisocytosis 2+ H Ovalocytes PT INR Sodium 134 L Potassium 4.5 Chloride 98 Carbon Dioxide 32 BUN 12 Creatinine 0.56 Estimated GFR > 60 BUN/Creatinine Ratio 21.4 Glucose 114 H Lactate Calcium 8.6 Magnesium Total Bilirubin AST ALT Alkaline Phosphatase Total Creatine Kinase CK-MB (CK-2) CK-MB (CK-2) Rel Index Troponin I Total Protein Albumin Globulin Albumin/Globulin Ratio Procalcitonin Urine Color Urine Appearance Urine pH Ur Specific [place] Urine Protein Urine Glucose (UA) Urine Ketones Urine Occult Blood Urine Nitrate Urine Bilirubin Urine Urobilinogen Ur Leukocyte Esterase Urine RBC Urine WBC Ur Squamous Epith Cells Urine Bacteria Ur Culture Indicated? U Opiates 300ng/mL cut Ur Oxycodone Screen Urine Methadone Screen Ur Barbiturates Screen U Tricyclic Antidepress Ur Phencyclidine Scrn Ur Amphetamines Screen U Methamphetamines Scrn Ur MDMA Scrn (Ecstasy) U Benzodiazepines Scrn Urine Cocaine Screen U Marijuana (THC) Screen Ethyl Alcohol SARS-CoV-2 (PCR) 05/27/22 05/27/22 06:33 06:33 WBC RBC Hgb Hct MCV MCH MCHC RDW Plt Count Neut % (Auto) Lymph % (Auto) [place] % (Auto) Eos % (Auto) Baso % (Auto) Neut # (Auto) Lymph # (Auto) [place] # (Auto) Eos # (Auto) Baso # (Auto) RBC Morphology Poikilocytosis Anisocytosis Ovalocytes PT 12.6 INR 1.1 Sodium Potassium Chloride Carbon Dioxide BUN Creatinine Estimated GFR BUN/Creatinine Ratio Glucose Lactate Calcium Magnesium 1.8 Total Bilirubin AST ALT Alkaline Phosphatase Total Creatine Kinase CK-MB (CK-2) CK-MB (CK-2) Rel Index Troponin I Total Protein Albumin Globulin Albumin/Globulin Ratio Procalcitonin Urine Color Urine Appearance Urine pH Ur Specific [place] Urine Protein Urine Glucose (UA) Urine Ketones Urine Occult Blood Urine Nitrate Urine Bilirubin Urine Urobilinogen Ur Leukocyte Esterase Urine RBC Urine WBC Ur Squamous Epith Cells Urine Bacteria Ur Culture Indicated? U Opiates 300ng/mL cut Ur Oxycodone Screen Urine Methadone Screen Ur Barbiturates Screen U Tricyclic Antidepress Ur Phencyclidine Scrn Ur Amphetamines Screen U Methamphetamines Scrn Ur MDMA Scrn (Ecstasy) U Benzodiazepines Scrn Urine Cocaine Screen U Marijuana (THC) Screen Ethyl Alcohol SARS-CoV-2 (PCR) [facility] Social History household members: none Tobacco & Substance Use Smoking Status: Never smoker alcohol intake: current Assessment & Plan Assessment and plan (1) Alcohol intoxication: Qualifiers: Complication of substance-induced condition: with unspecified complication Qualified Code(s): F10.929 - Alcohol use, unspecified with intoxication, unspecified Status: Acute (2) Anemia: Qualifiers: Anemia type: unspecified type Qualified Code(s): D64.9 - Anemia, unspecified Status: Acute Plan Although Shaista would benefit from EGD and colonoscopy in the near future I think it would be francois to treat her for withdrawal first. The prep can cause electrolyte disturbances and dehydration as well as sedation for the procedure which could complicate her withdrawal symptoms. I would therefore recommend delaying endoscopy until her withdrawal symptoms have abated. This could be done later on this hospitalization or as an outpatient.
--- NOTE | 2022-05-27 11:08 | CM.DANOTE ---
DCP: Case received, EMR reviewed and met with patient. Introduced self and role. Was able to obtain information regarding patient's baseline activity level as well as her current living situation. DCP assessment completed with information currently available. Patient is a 66 year old female who admitted yesterday evening to the care of the hospitalist team. PCP: Dr. Fu. Payer: confirmed: [employer] Medicare. Patient came to the hospital via ambulance secondary to patient having 3 falls that occurred in the last 24 hours. Patient had been complaining of right shoulder pain. Notes indicate that patient had also been here on May 11 and for the same ordeal. Patient also admitted to drinking a bottle of wine. Patient had noted right shoulder dislocation, anemic with hgb 8.3-8.9 positive guiac. Patient is to be having surgery consult. Surgeon has indicated, EGD and colonoscopy would benefit in the near future, but need to treat withdrawals at this time. This can also be done as outpatient. Met with patient in her room. She was sitting up in bed, alert and oriented. Confirmed that she resides in [place] alone, used to work at [employer]. Confirmed that she has a daughter named Ines Allan who lives in [place], she stated, I don't want you to call her, I will update her on what's going on. Patient does not drive, relies on friends for transportation. She does have a cand for home use. Asked her about her drinking, she indicated, honey, I'm an alcoholic, I just had something trigger it. She indicated, she is aware of resources, and has friends that are also in rehab. Mentioned home health to her, stated, she wants to think about it, really wants go get someone that cleans houses and cooks. Let her know that this DC Winder Tender can bring resources. She does not currently have P.T. orders as of yet. Asked her if she has friends that can stay with her, stated, she does have some friends in the area. P: DCP to continue to follow for needs. Patient could go home, will depend on her withdrawals, and if she will be working with P.T. Greer Batista RN/Vehicle Operator Discharge Planning/Care Management CM Discharge Assessment Start: 05/27/22 11:05 Freq: Status: Active Protocol: Document 05/27/22 11:05 (Rec: 05/27/22 11:08 [id number]) Discharge Planning Assessment Assigned Volcanology Professor Greer Batista RN/Vehicle Operator Advance Directives? No History Provided By Patient,Medical Record Prior Living Arrangements House Household Members none Type of transporation used prior to Relies on Others admit Comment Has friends that transport. Independent with ADL's Yes Is patient alert and oriented? Yes Needs Assistance With Home Chores / Shopping Caregiver for Another No DME Already Rented / Owned Cane Barriers to Discharge Yes Comment Lives alone, drinking, shoulder fracture. Discharge Plan Home Transportation Arrangement Friends Referrals Initiated Other Additional Comment P.T. has not yet been ordered. Discussed home heatlh with patient, she will think about it. Whiteboard Updated in Patient Room with Yes name and ext. # of Volcanology Professor Review Status In Process Next Review Type Continued Stay Review
[2022-05-27] MEDS: LORazepam 1 MG TABLET PO (12:47)
[2022-05-27] MEDS: PRAVASTATIN 20 MG TABLET 40 MG PO (21:45)
[2022-05-27] MEDS: GABAPENTIN 300 MG CAPSULE 900 MG PO (21:45)
[2022-05-27] MEDS: QUETIAPINE 100 MG TABLET 400 MG PO (22:34)
[2022-05-28] VITALS (7 sets, daily range): BP systolic 123–164; BP diastolic 51–92; PULSE 78–112; RESP 16–19; TEMP 36.4–37; O2SAT 96–100
--- NOTE | 2022-05-28 00:46 | PC.NURSE ---
2236: CIWA 10, pt fell asleep promptly after assessment. 2341: pt requested iv dilaudid for pain, stated she wanted this before ativan per ciwa. pt fell asleep shortly after.
[2022-05-28] MEDS: LORazepam 1 MG TABLET PO ×2 (01:26→06:42)
[2022-05-28] MEDS: OXYCODONE IR 5 MG TABLET PO ×2 (06:33→13:40)
[2022-05-28 08:39] LABS: Add Manual Diff / Slide Review NO; Basophils Absolute Auto 0 /uL (0-100); Basophils Percent Auto 1.2 % (0-2); Eosinophils Absolute Auto 200 /uL (0-450); Hematocrit 23.9 % (36-46); Hemoglobin 7.7 g/dL (12.0-16.0); Lymphocytes Absolute Auto 1400 /uL (1100-4500); Lymphocytes Percent Auto 39.8 % (25-40); Mean Corpuscular HGB Conc 32.5 % (30-36); Mean Corpuscular Hemoglobin 23.9 PG (26-34); Mean Corpuscular Volume 73.5 fL (80-100); Monocytes Absolute Auto 400 /uL (0-900); Monocytes Percent Auto 11.9 % (3-14); Neutrophils Absolute Auto 1500 /uL (1500-7000); Neutrophils Percent Auto 41.1 % (50-75); Platelet Count 158 X10^3/uL (150-400); Red Blood Cell Count 3.24 X10^6/uL (4.0-5.2); Red Cell Distribution Width 24.6 % (11.6-14.8); White Blood Cell Count 3.6 X10^3/uL (4.5-11.0)
[2022-05-28] MEDS: MULTIVITAMIN 1 TABLET 1 TAB PO (08:45)
[2022-05-28] MEDS: FOLIC ACID 1 MG TABLET PO (08:45)
[2022-05-28] MEDS: METOPROLOL ER 25 MG TABLET PO (08:45)
[2022-05-28] MEDS: THIAMINE 100 MG TABLET PO (08:45)
[2022-05-28] MEDS: lamoTRIgine 100 MG TABLET 200 MG PO (08:49)
[2022-05-28] MEDS: PANTOPRAZOLE 40 MG VIAL IV ×2 (08:50→20:30)
[2022-05-28 08:56] LABS: BUN Creatinine Ratio 19.3 (6-22); Blood Urea Nitrogen 11 mg/dL (7-17); Calcium 8.4 mg/dL (8.4-10.2); Carbon Dioxide 29 mmol/L (22-32); Chloride 101 mmol/L (98-107); Estimated Glomerular Filt Rate > 60 mL/min (>60); Glucose 120 mg/dL (80-110); HEMOLYSIS < 15 (0-50); Sodium 133 mmol/L (137-145)
--- NOTE | 2022-05-28 11:14 | PC.NURSE ---
Pt experienced frequent urination with little OP at start of shift. Bladder scan ~475 mL. Pt able to produce 500 mL after. Resting now.
--- NOTE | 2022-05-28 11:16 | P.PN_ITS ---
Subjective Subjective Date Patient Seen: 05/28/22 Time Patient Seen: 11:16 Interval history: Vital signs have improved. She is been on the CIWA protocol. Her hemoglobin dropped again. Exam Vital Signs (past 8 hours): - 05/28/22 06:17 05/28/22 08:45 Temperature 97.6 F Pulse Rate 91 H 112 H Respiratory Rate 18 Blood Pressure 132/58 L 139/92 H Pulse Oximetry 98 Oxygen Flow Rate 0 Oxygen Delivery Method Room Air Oxygen Flow Rate 0 Const Other: Sleeping Objective Labs 05/28/22 08:25 05/28/22 08:25 Labs: Laboratory Results - last 24 hr 05/28/22 05/28/22 08:25 08:25 WBC 3.6 L RBC 3.24 L Hgb 7.7 L Hct 23.9 L MCV 73.5 L MCH 23.9 L MCHC 32.5 RDW 24.6 H Plt Count 158 Neut % (Auto) 41.1 L Lymph % (Auto) 39.8 [place] % (Auto) 11.9 Eos % (Auto) 6.0 H Baso % (Auto) 1.2 Neut # (Auto) 1500 Lymph # (Auto) 1400 [place] # (Auto) 400 Eos # (Auto) 200 Baso # (Auto) 0 Nucleated RBCs Cancelled Hypersegmented Neuts Cancelled Hypogranular Neuts Cancelled Reactive Lymphocytes Cancelled Smudge Cells Cancelled Other Cell Type Cancelled Toxic Granulation Cancelled Toxic Vacuolation Cancelled Dohle Bodies Cancelled Aby Rods Cancelled WBC Morphology Comment Cancelled Platelet Estimate Cancelled Clumped Platelets Cancelled Plt Morphology Comment Cancelled RBC Morphology Cancelled Dimorphic RBCs Cancelled Polychromasia Cancelled Hypochromasia Cancelled Poikilocytosis Cancelled Basophilic Stippling Cancelled Anisocytosis Cancelled Microcytosis Cancelled Macrocytosis Cancelled Spherocytes Cancelled Pappenheimer Bodies Cancelled Sickle Cells Cancelled Target Cells Cancelled Tear Drop Cells Cancelled Ovalocytes Cancelled Stomatocytes Cancelled Helmet Cells Cancelled [place] Bodies Cancelled [place] Rings Cancelled Luis Cells Cancelled Acanthocytes (Spur) Cancelled Rouleaux Cancelled Schistocytes Cancelled Sodium 133 L Potassium 4.0 Chloride 101 Carbon Dioxide 29 BUN 11 Creatinine 0.57 Estimated GFR > 60 BUN/Creatinine Ratio 19.3 Glucose 120 H Calcium 8.4 PFSH Social History household members: none Smoking Status: Never smoker alcohol intake: current Assessment & Plan Assessment and plan (1) Anemia: Qualifiers: Anemia type: unspecified type Qualified Code(s): D64.9 - Anemia, unspecified Status: Acute Plan Plan on EGD and colonoscopy tomorrow for anemia and melena. We will start the GoLYTELY prep tonight. Quality VTE Deep Vein Thrombosis/Pulmonary Embolism Present on Admission: No
--- NOTE | 2022-05-28 12:35 | CM.DPC ---
Addendum entered by Greer Batista R.N. 05/28/22 14:21: Will attempt again tomorrow to discuss discharge planning with patient. As mentioned, she currently has no P.T. orders, may discuss skilled rehab with patient if she is willing to go. Addendum entered by Greer Batista R.N. 05/28/22 12:48: It is noted that H&H have decreased. Surgeon came in and indicated that patient will be having EGD and Colonoscopy tomorrow. Attempted to meet with patient, but she is currently sleeping. Original Note: DCP Cont: Discussed patient during team rounds. Asked hospitalist if patient is appropriate with P.T, for a possible home plan. Stated, she is not yet medically ready as of yet, is still on CIWA, needs further work up. Nursing indicated that patient is still having some anxiety. P: DCP to continue to follow. At this time, P.T, is not yet ordered, will need to see how she mobilizes with them. Had mentioned home health yesterday with patient who wanted to think about it. Will attempt to meet again iwth patient if she is able to converse further. Greer Batista, CIRO/Plate Grinder
[2022-05-28] MEDS: SODIUM CHLORIDE 0.9% FLUSH 10 ML IV ×2 (13:42→20:30)
[2022-05-28] MEDS: HYDROMORPHONE 0.5 MG INJ IV ×2 (13:42→20:30)
--- NOTE | 2022-05-28 14:49 | P.PN_ITS ---
Subjective Subjective Interval history: Shaista Corley is a 66-year-old female with an extensive history unstable gait uses a cane at baseline, repeat EMS runs and ED 05/11& 05/12 visits for falls, and alcohol abuse who presented to the ED after 3 reported falls in the past 24 hours complaining of shoulder pain was found to be intoxicated did advise that she had a bottle of wine this morning she present dizzy, Febrile, tachycardic, tachypneic with hypertensive urgency.? Patient was also found to be anemic and guaiac positive in the ED. Right shoulder x-ray demonstrated anterior dislocation shoulder was reduced in ED General surgery has been consulted and they are planning on a colonoscopy and endoscopy to be completed tomorrow with prep starting tonight. Exam Vital Signs (past 8 hours): - 05/28/22 08:45 05/28/22 11:43 05/28/22 07:27 Temperature 98.2 F Pulse Rate 112 H 94 H 112 H Respiratory Rate 19 16 Blood Pressure 139/92 H 123/51 L Pulse Oximetry 100 Oxygen Flow Rate 0 Oxygen Delivery Method Room Air Oxygen Flow Rate 0 Narrative Exam Narrative: GENERAL:? Alert 58-year-old female anxious and in no acute distress, appears nontoxic. HEENT: Head atraumatic,EOMI, pupils reactive, face symmetric, moist mucous membranes CARDIOVASCULAR: Regular rate and rhythm without murmurs, rubs or gallops. RESPIRATORY: Breath sounds equal bilaterally in all lobes , no wheezes rales or rhonchi. ABDOMEN: Soft, nontender.? Normoactive bowel sounds all 4 quadrants.? No guarding or rebound. EXTREMITIES: Normal range of motion, no clubbing or edema.? Neurovascularly intact. Right shoulder pain no clavicle step-off moving fingertips distal radial intact no obvious bony deformity.? General tenderness of right shoulder. NEUROLOGICAL: Alert and oriented, but intoxicated.? Moving all extremities SKIN: Warm, dry, no laceration, no petechiae, no rashes or lesions. Objective Labs 05/28/22 08:25 05/28/22 08:25 Labs: Laboratory Results - last 24 hr 05/28/22 05/28/22 08:25 08:25 WBC 3.6 L RBC 3.24 L Hgb 7.7 L Hct 23.9 L MCV 73.5 L MCH 23.9 L MCHC 32.5 RDW 24.6 H Plt Count 158 Neut % (Auto) 41.1 L Lymph % (Auto) 39.8 [place] % (Auto) 11.9 Eos % (Auto) 6.0 H Baso % (Auto) 1.2 Neut # (Auto) 1500 Lymph # (Auto) 1400 [place] # (Auto) 400 Eos # (Auto) 200 Baso # (Auto) 0 Nucleated RBCs Cancelled Hypersegmented Neuts Cancelled Hypogranular Neuts Cancelled Reactive Lymphocytes Cancelled Smudge Cells Cancelled Other Cell Type Cancelled Toxic Granulation Cancelled Toxic Vacuolation Cancelled Dohle Bodies Cancelled Aby Rods Cancelled WBC Morphology Comment Cancelled Platelet Estimate Cancelled Clumped Platelets Cancelled Plt Morphology Comment Cancelled RBC Morphology Cancelled Dimorphic RBCs Cancelled Polychromasia Cancelled Hypochromasia Cancelled Poikilocytosis Cancelled Basophilic Stippling Cancelled Anisocytosis Cancelled Microcytosis Cancelled Macrocytosis Cancelled Spherocytes Cancelled Pappenheimer Bodies Cancelled Sickle Cells Cancelled Target Cells Cancelled Tear Drop Cells Cancelled Ovalocytes Cancelled Stomatocytes Cancelled Helmet Cells Cancelled [place] Bodies Cancelled [place] Rings Cancelled Luis Cells Cancelled Acanthocytes (Spur) Cancelled Rouleaux Cancelled Schistocytes Cancelled Sodium 133 L Potassium 4.0 Chloride 101 Carbon Dioxide 29 BUN 11 Creatinine 0.57 Estimated GFR > 60 BUN/Creatinine Ratio 19.3 Glucose 120 H Calcium 8.4 PFSH Social History household members: none Smoking Status: Never smoker alcohol intake: current Assessment & Plan Assessment & Plan narrative: v=1. Ground level fall, recurrent, resulting in right shoulder dislocation, acut e on chronic, secondary to alcohol abuse/intoxication, present on admission -right shoulder was reduced in ED -suspect patient also may be contributing to falls per polypharmacy as she has listed medication of Seroquel, bupropion, duloxetine, gabapentin, Lamictal, and lorazepam on her medication list. -admit ETOH 137 -patient placed on CIWA protocol, seizure precautions, aspiration precautions -PT/OT evaluation -NS at 60 cc/HR initially -thiamine, folic acid, vitamin-A -had a 2 year sobriety prior to this episode of alcohol intake.? Recently had 2 brothers passed within the last couple weeks.? Instead of calling her sponsor with AA she felt drinking would help.? She will reconnect with her sponsor. 2. Lower GI bleed, was secondary blood loss anemia, acute, present on admission -Initial H&H 8.4/27.6, repeat 8.3/25, MCV 74.5, MCH 24 on presentation.? Hemoglobin is improved to 9.7.? Continue to follow. -Protonix IV 40 mg b.i.d. continue. -continue to trend H and H and monitor for bleeding -guaiac-positive on presentation -patient needs to be NPO after midnight for planned scopes tomorrow, bowel prep will be initiated this evening as well. -holding VTE medication prophylaxis -iron studies still pending, as anemia may be secondary to alcohol abuse 3. Hypertensive urgency in the setting of hypertension, essential, acute on chronic, present on admission -ED. blood pressures 170/103, 174/118, 182/93, heart rate 108-129 on presentation.? Hypertension remains at 182/85 this morning with a pulse rate of 122. -continue metoprolol and add hydralazine as needed. 4. Depression with anxiety, acute on chronic, present on admission -due to concerns regarding polypharmacy and unsure what patient is actually taking holding lorazepam, duloxetine, Seroquel, bupropion -continue holding -continuing Lamictal 5.? Obesity, moderate, acute on chronic, present on admission -as evidence by BMI 39.7 -dietary consult ordered regarding nutritional education and information for dietary, lifestyle, exercise, and weight changes. -the patient is at much higher risk for medical and surgical complications due to obesity as it relates to chronic illnesses:, and acute illness.? The patient's obesity increases the difficulty and complexity of medical and/or surgical interventions, management and increases the chances of poor outcome such as morbidity and mortality as well as impaired wound healing. 6. Insomnia.? Treat with trazodone 25 mg p.o. q.h.s. and patient has melatonin as needed Follow clinically and labs tomorrow Code status:Full Surrogate decision maker:? Daughter Zuri LOMBARDI PCR:? Negative DVT/VTE prophylaxis:? Holding medication, SCDs only Quality VTE Deep Vein Thrombosis/Pulmonary Embolism Present on Admission: No
[2022-05-28] MEDS: PEG3350/SOD SULF,BICARB,CL/KCL 4,000 ML SOLUTION 4000 ML PO (17:47)
[2022-05-28] MEDS: SODIUM CHLORIDE 0.9% 1,000 ML 60 ML IV (18:55)
[2022-05-28] MEDS: GABAPENTIN 300 MG CAPSULE 900 MG PO (20:29)
[2022-05-28] MEDS: PRAVASTATIN 20 MG TABLET 40 MG PO (20:29)
[2022-05-28] MEDS: LORazepam 0.5 MG TABLET PO (22:52)
[2022-05-29] VITALS (16 sets, daily range): BP systolic 138–180; BP diastolic 44–93; PULSE 79–100; RESP 13–20; TEMP 36.4–36.9; O2SAT 89–100; BMI 39.7
--- NOTE | 2022-05-29 | PATH_ITS ---
[facility] Accession Number: [id number] No. of containers..01 Tissue . 01 Material submitted: . body - ILEOCECAL VALVE . 01 Clinical history: . 06/01/2022 BIOPSY SITE VERIFIED BY SURESH LUNA . 01 Diagnosis: Ileocecal Valve, Biopsies: Ulcerated enteric mucosa with reactive epithelial changes and histiocytic inflammation. Please see comment. Negative for dysplasia, and malignancy. MRV 06/01/2022 1347 Local . 01 Comment: A few loose histiocytic aggregates are present without definite evidence of true granuloma formation. No obvious viral cytopathic effects or parasitic organisms are identified. Stains for CMV-antigen and mycobacteria will be performed and the results reported as an addendum. Features of chronic ileitis, including pseudopyloric metaplasia are not identified. The principal differential diagnosis includes infection, medication-related mucosal injury (i.e. NSAIDS), and Crohn's disease. . 01 Electronically signed: . Rebekah Arredondo MD, Pathologist NPI- [id number] . 01 Gross description: . ICD BIOPSY: Received in formalin are multiple fragment(s) of agosto, soft tissue measuring 0.1 x 0.1 x 0.1 cm to 0.3 x 0.3 x 0.2 cm submitted entirely in 1 cassette(s) /MERNA 05/30/2022 193 Local . 01 Pathologist provided ICD-10: R10.9 . 01 CPT . 878075, [id number], 232584 Specimen Comment: A courtesy copy of this report has been sent to [phone] Performed at: 01 [facility] [address] [place] [address] [address] [facility], [place], [place] [id number] MD Kip German MD Phone: [phone]
--- NOTE | 2022-05-29 02:50 | PC.NURSE ---
Pt sarted wheezing when ambulating from bedside commode to bed. Exp. wheezes heard posteriorly. Pt denied breathing tx at this time.
[2022-05-29] MEDS: OXYCODONE IR 5 MG TABLET PO ×3 (04:31→22:29)
[2022-05-29] MEDS: LORazepam 0.5 MG TABLET PO ×2 (04:31→22:30)
[2022-05-29 05:29] LABS: Basophils Absolute Auto 100 /uL (0-100); Basophils Percent Auto 1.5 % (0-2); Eosinophils Absolute Auto 300 /uL (0-450); Eosinophils Percent Auto 6.3 % (2-4); Hematocrit 25.6 % (36-46); Lymphocytes Absolute Auto 1600 /uL (1100-4500); Lymphocytes Percent Auto 38.5 % (25-40); Mean Corpuscular HGB Conc 31.3 % (30-36); Mean Corpuscular Hemoglobin 23.4 PG (26-34); Mean Corpuscular Volume 74.8 fL (80-100); Monocytes Absolute Auto 400 /uL (0-900); Monocytes Percent Auto 10.6 % (3-14); Neutrophils Absolute Auto 1800 /uL (1500-7000); Neutrophils Percent Auto 43.1 % (50-75); Platelet Count 192 X10^3/uL (150-400); Red Blood Cell Count 3.43 X10^6/uL (4.0-5.2); White Blood Cell Count 4.1 X10^3/uL (4.5-11.0)
[2022-05-29 05:31] LABS: Add Manual Diff / Slide Review SLIDE REVIEW
[2022-05-29 05:41] LABS: BUN Creatinine Ratio 11.1 (6-22); Blood Urea Nitrogen 6 mg/dL (7-17); Calcium 8.1 mg/dL (8.4-10.2); Carbon Dioxide 27 mmol/L (22-32); Chloride 104 mmol/L (98-107); Estimated Glomerular Filt Rate > 60 mL/min (>60); Glucose 99 mg/dL (80-110); HEMOLYSIS < 15 (0-50); Potassium 3.7 mmol/L (3.4-5.1); Sodium 134 mmol/L (137-145)
[2022-05-29 07:11] LABS: Anisocytosis 2+; Hypochromasia 1+; Microcytosis 1+; Ovalocytes 1+
--- NOTE | 2022-05-29 10:18 | PC.NURSE ---
Morning meds held d/t scheduled EGD/colonoscopy. Pt NPO.
--- NOTE | 2022-05-29 11:20 | PC.NURSE ---
Pt retaining urine, bladder scan at 500+. Dooley ordered and inserted, 1st attempt, pt tolerated well. ~800 mL output on insertion.
[2022-05-29] MEDS: PANTOPRAZOLE 40 MG VIAL IV ×3 (12:24→20:46)
[2022-05-29] MEDS: SODIUM CHLORIDE 0.9% 1,000 ML 60 ML IV (12:26)
--- NOTE | 2022-05-29 13:21 | CM.DPC ---
DCP Cont: Discussed patient during team rounds. She is having EGD,Colonoscopy today. Hospitalist indicated that therapy is not yet appropriate for patient, may be by tomorrow. Have attempted to meet with patient to discuss options such as rehab, should she need this, but she has been sleeping. Patient also was noted to be having urinary retention, and swartz was placed. Did go ahead and complete a PASSR for patient. P: DCP to continue follow and work on plan. Patient will need to work with therapy once stable, to work on discharge disposition, either home with home health, versus skilled. Will also need to go over plan with patient as well, to see if she would be open to going to a alf facility if needed. Greer Batista, CIRO/Pace Analyst
--- NOTE | 2022-05-29 13:41 | PC.NURSE ---
Patient just left for egd and colonoscopy, report given to pacu RNs prior to leaving.
[2022-05-29] MEDS: LACTATED RINGERS 1,000 ML 42 ML IV (14:25)
--- NOTE | 2022-05-29 14:35 | PM.HP.1 ---
History of Present Illness History of Present Illness Date Patient Seen: 05/29/22 Time Patient Seen: 14:35 Chief complaint: GLF Narrative: I was asked by Dr. Gerardo to perform EGD and colonoscopy for this patient today. I reviewed his consult note. She is been treated for alcohol withdrawal following a fall with dislocated shoulder. She experienced a mechanical bowel prep yesterday. She recalls dark stools prior to being prepped. She has a microcytic anemia. Patient History Family & Social History Social History: household members none Prior Living Arrangements House Safety & Behavioral: Feels Safe in Current Yes Environment Been Physically Hurt or No Threatened By a Person Tobacco & Substance use: Smoking Status Never smoker alcohol intake current alcohol intake frequency 3 or more drinks per day Substance Use Type does not use Meds Home Medications and Allergies Home Medications Medication Instructions Recorded Confirmed Type Ventolin HFA 1 - 2 puff inhalation QMONTH PRN 05/12/22 05/26/22 History Shortness Of Breath acyclovir 400 mg tablet 400 mg PO PRN PRN Cold Sores 05/12/22 05/26/22 History bupropion HCl 150 mg 24 hr tablet, 150 mg PO DAILY 05/12/22 05/26/22 History extended release disulfiram 250 mg PO DAILY 05/12/22 05/26/22 History duloxetine 60 mg PO DAILY 05/12/22 05/26/22 History gabapentin 300 mg capsule 900 mg PO BEDTIME 05/12/22 05/26/22 History lamotrigine 200 mg tablet 200 mg PO DAILY 05/12/22 05/26/22 History lorazepam 0.5 mg tablet (Ativan) 0.5 mg PO PRN PRN Anxiety 05/12/22 05/26/22 History metoprolol succinate 25 mg 25 mg PO DAILY 05/12/22 05/26/22 History tablet,extended release 24 hr ondansetron 4 mg disintegrating 4 mg PO PRN PRN Nausea 05/12/22 05/26/22 History tablet polyethylene glycol 3350 17 17 g PO DAILY 05/12/22 05/26/22 History gram/dose oral powder (Miralax) pravastatin 40 mg PO BEDTIME 05/12/22 05/26/22 History quetiapine 200 mg tablet 400 mg PO BEDTIME 05/12/22 05/26/22 History tizanidine 4 mg PO TID spasms 05/12/22 05/26/22 History Allergies Allergy/AdvReac Type Severity Reaction Status Date / Time hydrocodone [From VICODIN] Allergy Unknown Verified 05/29/22 14:07 Review of Systems Review of Systems ROS: Yes All systems reviewed with the patient and are negative except as otherwise documented Exam Vital Signs (past 8 hours): - 05/29/22 09:00 05/29/22 13:00 05/29/22 14:15 Temperature 98.2 F 97.8 F 97.8 F Pulse Rate 99 H 79 100 H Respiratory Rate 17 17 16 Blood Pressure 167/57 H 180/75 H 161/76 H Pulse Oximetry 94 99 96 Oxygen Delivery Method Room Air Oxygen Flow Rate 0 0 Oxygen Delivery Method Room Air Oxygen Flow Rate 0 Const General: cooperative HENMT Head: normal to inspection Eyes General: appearance normal, both eyes and all related structures Neck Neck: normal visual inspection Chest Chest: normal inspection of the chest Resp Effort & Inspection: normal respiratory effort Cardio Rate: regular rate GI Inspection: normal to inspection Skin General: no rashes or lesions noted Neuro General: patient alert and patient awake Extrem General: normal to inspection and no pedal edema Psych Appearance: grossly normal Objective Labs 05/29/22 04:58 05/29/22 04:58 Labs: Laboratory Results - last 24 hr 05/29/22 05/29/22 04:58 04:58 WBC 4.1 L RBC 3.43 L Hgb 8.0 L Hct 25.6 L MCV 74.8 L MCH 23.4 L MCHC 31.3 RDW 24.0 H Plt Count 192 Neut % (Auto) 43.1 L Lymph % (Auto) 38.5 [place] % (Auto) 10.6 Eos % (Auto) 6.3 H Baso % (Auto) 1.5 Neut # (Auto) 1800 Lymph # (Auto) 1600 [place] # (Auto) 400 Eos # (Auto) 300 Baso # (Auto) 100 RBC Morphology See below Hypochromasia 1+ H Anisocytosis 2+ H Microcytosis 1+ H Ovalocytes 1+ H Sodium 134 L Potassium 3.7 Chloride 104 Carbon Dioxide 27 BUN 6 L Creatinine 0.54 Estimated GFR > 60 BUN/Creatinine Ratio 11.1 Glucose 99 Calcium 8.1 L Assessment & Plan Assessment & Plan narrative: 66-year-old female with a microcytic anemia, recent black stools, and nausea. Diagnostic and potentially therapeutic EGD and colonoscopy are pursued today. Quality VTE Deep Vein Thrombosis/Pulmonary Embolism Present on Admission: No
--- NOTE | 2022-05-29 14:38 | PM.PREOP ---
Pre-operative Note Interval Note History & Physical reviewed/Exam performed by Physician: Yes Changes to H&P: No ASA Class (for procedural sedation): III
--- NOTE | 2022-05-29 15:50 | P.OP.EGD&C_ITS ---
Operative Date/Time/Diagnoses Date of procedure: 05/29/22 Time of procedure: 15:50 Pre-op diagnosis: Melena anemia Post-op diagnosis: same Procedure & Clinicians Study performed: EGD and colonoscopy with biopsy and submucosal tattoo placement Same procedure as scheduled: Yes Indications: Melena anemia Surgeon: Enrique Hernandez Procedure Notes SCOAP/Timeout: Done Procedure in detail: After the risks and benefits were explained, written and verbal informed consent was obtained. The patient was brought into the procedure room and placed into the left lateral decubitus position. Please see anesthesia note for sedation details. The scope was introduced into the mouth through the bite block and advanced under direct visualization to the 2nd portion of the duodenum. The scope was slowly withdrawn carefully examining the mucosa for any defects or lesions. Retroflexed views were accomplished in the stomach. The stomach was decompressed, the scope was then removed from the patient who tolerated the procedure well. The patient was then turned around a digital rectal examination was accomplished. The scope was introduced into the rectum and advanced to what I believe was the level of the ileocecal valve. That said I could not enter the terminal ileum proper. Biopsies were acquired a tattoo was placed the scope was then slowly withdrawn to carefully examine the mucosa for any defects or lesions. Multiple direct views were made through the dentate line for exclusion of pathology. The colon was decompressed. The scope was removed from the patient who tolerated the procedure reasonably well. Pediatric colonoscope Bowel prep fair; with copious irrigation and suction this was rendered adequate. Scope withdrawal time: Greater than 25 minutes Sedation minutes: 58 Complications: none Impression: 1. Esophagus: No varices. No new or old blood. GEJ was at 41 cm from the inci sors. No stricturing no mass lesions no esophagitis. 2. Stomach: There were some scattered petechiae in the body of the stomach but when we arrived there was no evidence of any new or old blood. No varices identified including in retroflexed views. The patient had a fairly voluminous stomach and in order to advance through the pyloric channel nearly all of the diagnostic gastroscope had to be introduced. No ulcers. No outlet obstruction identified. 3. Duodenum: Based on the amount of scope to arrive in duodenum it was challenging to reduce into D2. I did not appreciate any evidence of new or old blood no obvious ulcers. No obvious pathology appreciated. We had limited looks through the duodenal sweep. 4. Colon: I did not see any new or old blood. Residual stool and prep debris was a green/yellow bile color. The patient had a fairly lengthy redundant colon. Navigation was somewhat challenging and required pressure with the stiffening leola. When we eventually arrived at what I believe to be the ileocecal valve this was obviously quite abnormal. I could not get past the valve into cecum proper. The valve was quite firm and somewhat friable. The mucosa opposite the valve was friable and firm as well. Multiple biopsies were taken from this region. The mucosa inside the cecum appeared to be pale and may have represented excavated ulceration. Because we did not clearly identify the cecum by the typical landmarks photographs, a small Lanny ink tattoo was placed just distal to this region. See photos. Grade 2-3 hemorrhoids were noted on direct views Endoscopic diagnosis 1. Gastropathy with gastric petechiae 2. Voluminous stomach 3. 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 Lengthy redundant colon 5. Mild internal hemorrhoids grade 2-3 Post-procedure Plan for aftercare: 1. Await histopathology 2. I recommend review of the recent CT scan with Ra diology to get a better look at the cecum. 3. CEA level 4. For now clear liquid diet. 5. Diet can be advanced only after confirmation of the surgical plan which will be determined by Dr. Gerardo. Disposition: PACU
--- NOTE | 2022-05-29 15:58 | SUR.OPER ---
Patient c/o pain to her right shoulder, reports that it has been sore since dislocation. Patient during procedure was on her left side with her arm propped with a pillow for comfort through out procedure.
[2022-05-29] MEDS: FOLIC ACID 1 MG TABLET PO (16:34)
[2022-05-29] MEDS: METOPROLOL ER 25 MG TABLET PO (16:35)
[2022-05-29] MEDS: lamoTRIgine 100 MG TABLET 200 MG PO (16:35)
[2022-05-29] MEDS: MULTIVITAMIN 1 TABLET 1 TAB PO (16:35)
[2022-05-29] MEDS: THIAMINE 100 MG TABLET PO (16:35)
--- NOTE | 2022-05-29 18:11 | P.PN_ITS ---
Subjective Subjective Interval history: Patient is currently postoperative for upper endoscopy and colonoscopy. Is very worried what they found. Per her report most likely they took biopsies and she needs a while to get the results. Blood pressure has been elevated post procedures. We will order hydralazine on a as needed basis. Patient is unclear fluids post procedures. Exam Vital Signs (past 8 hours): - 05/29/22 13:00 05/29/22 14:15 05/29/22 15:54 Temperature 97.8 F 97.8 F 97.5 F L Pulse Rate 79 100 H 92 H Respiratory Rate 17 16 16 Blood Pressure 180/75 H 161/76 H 168/93 H Pulse Oximetry 99 96 99 Oxygen Delivery Method Room Air Room Air Oxygen Flow Rate 0 05/29/22 15:58 05/29/22 16:03 05/29/22 16:08 Temperature Pulse Rate 98 H 94 H 92 H Respiratory Rate 14 13 20 Blood Pressure 158/83 H 175/87 H Pulse Oximetry 99 98 100 Oxygen Delivery Method Room Air Room Air Room Air Oxygen Flow Rate 05/29/22 16:08 05/29/22 16:35 Temperature Pulse Rate 97 H Respiratory Rate Blood Pressure 179/88 H 178/68 H Pulse Oximetry Oxygen Delivery Method Oxygen Flow Rate Oxygen Delivery Method Room Air Oxygen Flow Rate 0 Narrative Exam Narrative: GENERAL:? Alert 66-year-old female anxious and in no acute distress HEENT: Head atraumatic,EOMI, pupils reactive, face symmetric, moist mucous membranes CARDIOVASCULAR: Regular rate and rhythm without murmurs, rubs or gallops. RESPIRATORY: Breath sounds equal bilaterally in all lobes , no wheezes rales or rhonchi. ABDOMEN: Soft, nontender.? Normoactive bowel sounds all 4 quadrants.? No guardin g or rebound. EXTREMITIES: Normal range of motion, no clubbing or edema.? Neurovascularly intact. Right shoulder pain no clavicle step-off moving fingertips distal radial intact no obvious bony deformity.? General tenderness of right shoulder. NEUROLOGICAL: Alert and oriented.? Moving all extremities SKIN: Warm, dry, no laceration, no petechiae, no rashes or lesions. Objective Labs 05/29/22 04:58 05/29/22 04:58 Labs: Laboratory Results - last 24 hr 05/29/22 05/29/22 04:58 04:58 WBC 4.1 L RBC 3.43 L Hgb 8.0 L Hct 25.6 L MCV 74.8 L MCH 23.4 L MCHC 31.3 RDW 24.0 H Plt Count 192 Neut % (Auto) 43.1 L Lymph % (Auto) 38.5 [place] % (Auto) 10.6 Eos % (Auto) 6.3 H Baso % (Auto) 1.5 Neut # (Auto) 1800 Lymph # (Auto) 1600 [place] # (Auto) 400 Eos # (Auto) 300 Baso # (Auto) 100 RBC Morphology See below Hypochromasia 1+ H Anisocytosis 2+ H Microcytosis 1+ H Ovalocytes 1+ H Sodium 134 L Potassium 3.7 Chloride 104 Carbon Dioxide 27 BUN 6 L Creatinine 0.54 Estimated GFR > 60 BUN/Creatinine Ratio 11.1 Glucose 99 Calcium 8.1 L PFSH Social History household members: none Smoking Status: Never smoker alcohol intake: current Assessment & Plan Assessment & Plan narrative: 1. Ground level fall, recurrent, resulting in right shoulder dislocation, acute on chronic, secondary to alcohol abuse/intoxication, present on admission -right shoulder was reduced in ED -suspect patient also may be contributing to falls per polypharmacy as she has listed medication of Seroquel, bupropion, duloxetine, gabapentin, Lamictal, and lorazepam on her medication list. -admit ETOH 137 -patient placed on CIWA protocol, seizure precautions, aspiration precautions -PT/OT evaluation -NS at 60 cc/HR initially. -thiamine, folic acid, vitamin-A -had a 2 year sobriety prior to this episode of alcohol intake.? Recently had 2 brothers passed within the last couple weeks.? Instead of calling her sponsor with AA she felt drinking would help.? She will reconnect with her sponsor. 2. Lower GI bleed, was secondary blood loss anemia, acute, present on admission. Concern also for upper GI bleed. Completed upper endoscopy and colonoscopy today. -Initial H&H 8.4/27.6, repeat 8.05/27, MCV 74.5, MCH 24 on presentation.? H emoglobin is improved to 9.7.? Continue to follow. Yesterday hemoglobin decreasing now slightly increased back to 8.0 -Protonix IV 40 mg b.i.d. continue. -continue to trend H and H and monitor for bleeding -guaiac-positive on presentation -holding VTE medication prophylaxis -iron studies still pending, as anemia may be secondary to alcohol abuse 3. Hypertensive urgency in the setting of hypertension, essential, acute on chronic, present on admission. Blood pressure increased post procedures and hydralazine as needed orders given. -ED. blood pressures 170/103, 174/118, 182/93, heart rate 108-129 on presentation.? Hypertension remains at 182/85 this morning with a pulse rate of 122. Postprocedure blood pressure 178/68 today. -continue metoprolol. 4. Depression with anxiety, acute on chronic, present on admission -due to concerns regarding polypharmacy and unsure what patient is actually taking holding lorazepam, duloxetine, Seroquel, bupropion -continue holding -continuing Lamictal 5.? Obesity, moderate, acute on chronic, present on admission -as evidence by BMI 39.7 -dietary consult ordered regarding nutritional education and information for dietary, lifestyle, exercise, and weight changes. -the patient is at much higher risk for medical and surgical complications due to obesity as it relates to chronic illnesses:, and acute illness.? The patient's obesity increases the difficulty and complexity of medical and/or surgical interventions, management and increases the chances of poor outcome such as morbidity and mortality as well as impaired wound healing. 6. Insomnia.? Treat with trazodone 25 mg p.o. q.h.s. and patient has melatonin as needed Follow clinically and labs tomorrow Code status:Full Surrogate decision maker:? Daughter Zuri LOMBARDI PCR:? Negative DVT/VTE prophylaxis:? Holding medication, SCDs only Quality VTE Deep Vein Thrombosis/Pulmonary Embolism Present on Admission: No
--- NOTE | 2022-05-29 18:33 | PC.NURSE ---
Pt showing generalized edema, continuous fluids stopped per Dr. Maxwell.
[2022-05-29] MEDS: PRAVASTATIN 20 MG TABLET 40 MG PO (20:46)
[2022-05-29] MEDS: GABAPENTIN 300 MG CAPSULE 900 MG PO (20:46)
[2022-05-29] MEDS: QUETIAPINE 100 MG TABLET 400 MG PO (20:47)
[2022-05-29] MEDS: TRAZODONE 50 MG TABLET 25 MG PO (20:47)
[2022-05-29] MEDS: SODIUM CHLORIDE 0.9% FLUSH 10 ML IV (20:47)
[2022-05-29] MEDS: HYDRALAZINE 25 MG TABLET PO (20:48)
[2022-05-30] VITALS (10 sets, daily range): BP systolic 73–157; BP diastolic 41–73; PULSE 72–100; RESP 15–20; TEMP 36.1–36.9; O2SAT 94–97
[2022-05-30] MEDS: TIZANIDINE 4 MG TABLET PO (01:05)
[2022-05-30] MEDS: HYDROMORPHONE 0.5 MG INJ IV (01:05)
[2022-05-30] MEDS: SODIUM CHLORIDE 0.9% FLUSH 10 ML IV ×4 (01:05→20:14)
--- NOTE | 2022-05-30 01:26 | PC.NURSE ---
Addendum entered by Karena Dudley R.N. 05/30/22 04:44: BP 93/44 w/MAP of 60 on right arm and 74/43 w/MAP of 55 on left arm. Patient is asymptomatic and wanting Ativan and pain medication. Ciro HASSAN, informed and order received for a.m. lab and to bolus 1000cc NS. Original Note: Patient is alert and oriented. Breath sounds CTA with RA sat of 95%. HR irregular, rate controlled but reports hx of afib. Denies nausea but was complaining earlier of stomach discomfort resolved with IV Protonix. BT present and abdomen is soft and non tender. Indwelling catheter patent with clear, yellow urine (placed for urinary retention). Is able to move herself in bed. Up walking in room with walker and SBA; reports feeling weak but is steady on feet. Has had bilateral calf SCD's on and off; complaining of restless leg syndrome so Ciro HASSAN, informed and order received/given for Tizanidine. Complains of right shoulder pain and has limited ROM in right UE; medicated earlier with oxycodone and is now given IV Dilaudid. CIWA scores have been 1 so far this shift. Fall risk score is high and bed alarm is activated.
[2022-05-30] MEDS: SODIUM CHLORIDE 0.9% 1,000 ML 1000 ML IV (04:54)
[2022-05-30 05:09] LABS: Basophils Absolute Auto 0 /uL (0-100); Basophils Percent Auto 1.1 % (0-2); Eosinophils Absolute Auto 100 /uL (0-450); Eosinophils Percent Auto 4.1 % (2-4); Hemoglobin 7.4 g/dL (12.0-16.0); Lymphocytes Absolute Auto 1100 /uL (1100-4500); Lymphocytes Percent Auto 33.3 % (25-40); Mean Corpuscular HGB Conc 32.1 % (30-36); Mean Corpuscular Hemoglobin 23.6 PG (26-34); Mean Corpuscular Volume 73.5 fL (80-100); Monocytes Absolute Auto 400 /uL (0-900); Monocytes Percent Auto 11.1 % (3-14); Neutrophils Absolute Auto 1700 /uL (1500-7000); Neutrophils Percent Auto 50.4 % (50-75); Platelet Count 197 X10^3/uL (150-400); Red Blood Cell Count 3.13 X10^6/uL (4.0-5.2); Red Cell Distribution Width 23.8 % (11.6-14.8); White Blood Cell Count 3.4 X10^3/uL (4.5-11.0)
[2022-05-30 05:13] LABS: Add Manual Diff / Slide Review SLIDE REVIEW
[2022-05-30 05:33] LABS: Magnesium 1.7 mg/dL (1.6-2.3)
[2022-05-30 05:34] LABS: Alanine Aminotransferase 11 IU/L (<35); Albumin 2.5 g/dL (3.5-5.0); Albumin Globulin Ratio 1.1 (1.0-2.8); Alkaline Phosphatase 36 U/L (38-126); Aspartate Aminotransferase 21 IU/L (14-36); BUN Creatinine Ratio 6.5 (6-22); Bilirubin Total 0.6 mg/dL (0.2-1.3); Blood Urea Nitrogen 4 mg/dL (7-17); Calcium 8.2 mg/dL (8.4-10.2); Carbon Dioxide 32 mmol/L (22-32); Chloride 101 mmol/L (98-107); Estimated Glomerular Filt Rate > 60 mL/min (>60); Globulin 2.2 g/dL (1.7-4.1); Glucose 120 mg/dL (80-110); HEMOLYSIS < 15 (0-50); Potassium 3.4 mmol/L (3.4-5.1); Sodium 134 mmol/L (137-145); Total Protein 4.7 g/dL (6.3-8.2)
[2022-05-30] MEDS: ACETAMINOPHEN 325 MG TABLET 650 MG PO (06:01)
[2022-05-30 06:48] LABS: HEMOLYSIS < 15 (0-50); Iron 19 ug/dL (37-170)
[2022-05-30] MEDS: DEXTROSE 5%-0.9% NS 1,000 ML 100 ML IV (06:48)
[2022-05-30 06:58] LABS: Percent Iron Saturation 6 % (15-50); Total Iron Binding Capacity 326 ug/dL (265-497); Transferrin 223 mg/dL (206-381)
[2022-05-30 07:11] LABS: Anisocytosis 2+; Hypochromasia 1+; Microcytosis 1+; Ovalocytes 1+
[2022-05-30] MEDS: OXYCODONE IR 5 MG TABLET PO ×3 (09:05→20:12)
[2022-05-30] MEDS: THIAMINE 100 MG TABLET PO (09:06)
[2022-05-30] MEDS: METOPROLOL ER 25 MG TABLET PO (09:06)
[2022-05-30] MEDS: FOLIC ACID 1 MG TABLET PO (09:06)
[2022-05-30] MEDS: lamoTRIgine 100 MG TABLET 200 MG PO (09:07)
[2022-05-30] MEDS: PANTOPRAZOLE 40 MG VIAL IV ×2 (09:07→20:12)
[2022-05-30] MEDS: MULTIVITAMIN 1 TABLET 1 TAB PO (09:07)
[2022-05-30] MEDS: POTASSIUM CHLORIDE 20 MEQ TAB 40 MEQ PO (09:52)
[2022-05-30] MEDS: MAGNESIUM CHLORIDE 64 MG TABLET 128 MG PO (09:52)
--- NOTE | 2022-05-30 10:52 | CM.DPNOTE ---
Addendum entered by TARIK Singleton 05/30/22 11:20: Add: Reviewed HH options w/patient via CM IPAD; no agency preference. Referral to [facility] made by [facility] r/t soonest availability YOSELIN Original Note: DCP Note Spoke with PT after initial eval- patient was able to ambulate 200ft w/walker this morning. Patient plans to return home. Patient denies need for walker upon discharge saying her home is too small, patient plans to use a cane Patient would benefit from home health services, will plan to review HH agency options in [place] with patient. Meanwhile F2F completed and signed, HH order in place OT ordered Dr Orozco unsure whether patient will be scoped again- another EGD today (?) Plan: Anticipate discharge home w/friends and HH services via friend to transport CM team following closely for coordination of DANO WYATT
--- NOTE | 2022-05-30 11:46 | CM.DPNOTE ---
Charlene asked me to send referral to [facility]. After faxing referral I followed up with Luba from [facility] [place] who said she had received the clinicals and that they can see the pt. for RN services on June 06. She has added the patient to this date. Lacy Maxwell, CAMILA Assist.
[2022-05-30 12:39] LABS: Add Manual Diff / Slide Review NO; Basophils Absolute Auto 100 /uL (0-100); Basophils Percent Auto 1.3 % (0-2); Eosinophils Absolute Auto 200 /uL (0-450); Eosinophils Percent Auto 5.2 % (2-4); Hematocrit 26.7 % (36-46); Hemoglobin 8.5 g/dL (12.0-16.0); Lymphocytes Absolute Auto 1500 /uL (1100-4500); Lymphocytes Percent Auto 31.5 % (25-40); Mean Corpuscular Hemoglobin 23.9 PG (26-34); Mean Corpuscular Volume 74.7 fL (80-100); Monocytes Absolute Auto 500 /uL (0-900); Monocytes Percent Auto 11.4 % (3-14); Neutrophils Absolute Auto 2400 /uL (1500-7000); Neutrophils Percent Auto 50.6 % (50-75); Platelet Count 243 X10^3/uL (150-400); Red Blood Cell Count 3.57 X10^6/uL (4.0-5.2); White Blood Cell Count 4.8 X10^3/uL (4.5-11.0)
[2022-05-30 13:16] LABS: Anisocytosis 2+; Microcytosis 1+
[2022-05-30 13:17] LABS: Hypochromasia 1+; Ovalocytes 1+
--- NOTE | 2022-05-30 14:06 | PT.IIE ---
Current Diagnoses Anemia, unspecified (05/26/22) Alcohol use, unspecified with intoxication, unspecified (05/26/22) Surgery Performed Operation Date: 05/29/22 15:30 Actual Procedures p Esophagogastroduodenoscopy - Enrique Hernandez MD s Colonoscopy WITH BIOPSY - Enrique Hernandez MD Physical Therapy Inpatient Evaluation/Re-Eval M1 PT/OT-IP Prior Functional Status Start: 05/30/22 12:19 Freq: NEEDED Status: Active Protocol: Document 05/30/22 13:37 TH (Rec: 05/30/22 14:06 TH [id number]) Medical Review Prior Functional Status Medical History Reviewed Yes: HTN, ETOH + , Anemia Mobility and Gait Pt ambulates with SPC for nlonger distances and with or without SPC in the house. Activities of Daily Living and IADL's IND Prior Functional Level (Other details) IND Social History Household Members none Living Arrangements House Number of Floors (Floors) One Floor Number of Stairs To Enter/Railing? none Home Environment Standard Height Toilet,Walk in Shower Home Equipment Straight Cane,Grab Bars Near Toilet Employment Status Retired M2 PT-IP Current Condition Start: 05/30/22 12:19 Freq: NEEDED Status: Active Protocol: Document 05/30/22 13:37 TH (Rec: 05/30/22 14:06 TH [id number]) Physical Therapy Current Condition Current Condition Evaluation Date 05/30/22 Treatment Diagnosis S/p GI bleed, colonoscopy, fall at home, r shld dislocation/red M3 PT-IP Subjective Start: 05/30/22 12:19 Freq: NEEDED Status: Active Protocol: Document 05/30/22 13:37 TH (Rec: 05/30/22 14:06 TH [id number]) Subjective Physical Therapy Visit Type Type Initial Evaluation Visit Start Time 10:30 Visit Stop Time 11:00 Total Visit Minutes 30 Notes Pt awake , wanted to get out of bed. Physical Therapy Visit Comments Patient Comments Pt states she really does not wish to go to SNF. She may stay another few days if further biopsy is required. This may give her a chance to regain more strength while working with PT before going home. Patient Goals LE strength to be able to ambulate in home Therapy Pain Assessment Pain When Pain Assessed constant Pain Present Pain Present Pain Reported Location Right Shoulder Scale Used Numeric (0 - 10) Description Aching Pain Management Techniques Timing of Activity with Medications M4 PT-IP Mobility and Gait Start: 05/30/22 12:19 Freq: NEEDED Status: Active Protocol: Document 05/30/22 13:37 TH (Rec: 05/30/22 14:06 TH [id number]) PT-Bed Mobility Assessment Rolling Type of Rolling Roll to Left Level of Assist Standby Assistance Supine to Sit Supine to Sit Standby Assistance Sit to Supine Sit to Supine Standby Assistance Scooting Scooting to Edge of Bed Independent PT-Transfer Assessment Sit to and From Stand Sit to and from Stand Contact Guard Assistance Equipment Transfer Assistive Device 4 Wheeled Walker Transfers Transfer Destination Chair Transfer Technique ambu. 10 feet to chair Transfer Ability Level of Assist Contact Guard Assistance Gait Assessment Gait Gait Assistance Required: Standby Assistance Distance (Feet) 100 Able to Maintain Weight Bearing Status Yes During Gait Assistive Devices Assistive Device 4 Wheeled Walker Gait Deviations General Gait Pattern Within Normal Limits Factors Limiting Gait Function Factors Limiting Gait Function Pain Comments Gait Comments pain right arm with weight bear through walker Stair Climbing Assessment Comments Stair Climbing Comments NT pt reports no stairs at home PT-Balance Assessment Sitting Balance and Reactions Static Sitting Balance Ability Normal Dynamic Sitting Balance Ability Normal Standing Balance and Reactions Static Standing Balance Ability Normal Dynamic Standing Balance Ability Good Device Used fWW M5 PT-IP Objective Assessments Start: 05/30/22 12:19 Freq: NEEDED Status: Active Protocol: Document 05/30/22 13:37 TH (Rec: 05/30/22 14:06 TH [id number]) Orientation Orientation/Cognition Level of Alertness Alert Orientation Name,Age,Situation Language Function Ability No Deficits Noted Safety Awareness Understands Safety Issues Memory Description No Deficits Noted Gross Range of Motion Lower Extremity ROM Assessment Within Functional Limits Strength Lower Extremity Strength Assessment Within Functional Limits M6 PT-IP Treatment Start: 05/30/22 12:19 Freq: NEEDED Status: Active Protocol: Document 05/30/22 13:37 TH (Rec: 05/30/22 14:06 TH [id number]) Physical Therapy Treatment Exercises Exercises Ankle Pumps Equipment Issued Equipment Type and Company FWW M7 PT-IP Assessment and Plan Start: 05/30/22 12:19 Freq: NEEDED Status: Active Protocol: Document 05/30/22 13:37 TH (Rec: 03/28/23 14:06 TH [id number]) PT Summary Assessment and Plan Potential Rehabilitation Potential Good Status of Condition at Evaluation Stable Summary Impairments Pain,Activity Tolerance Assessment Summary Pt presents with generalized decreased endurance and right shouolder pain that may affect her ability to return home as opposed to going to rehab first. She wishes to go home. If she is able to work with PT for the next 1-2 days then she will likely be able have enough practice to dc home. Will reassess tomorrow. In addition, she states r shoulder pain is still significant leading to inability to place weight through AD when ambulating. Goals Bed Mobility Goal Independent Transfer Goal Independent Gait Goal Independent Gait Distance 100+ feet Frequency of Treatment Frequency Of Treatment Once a Day Treatment Plan Physical Therapy Treatment Plan Bed Mobility Training,Transfer Training,Gait Training, Therapeutic Exercise,Balance Retraining,Hot or Cold Pack Precautions Other Precautions R shld dislocation precautions Weight Bearing Status Weight Bearing Status Weight Bear as Tolerated Allowed Weight Bearing Amount (enter % R UE or #) (%) Recommendations To Nursing Amount of Assist Needed Standby Assistance Discharge Recommendations PT Discharge Recommendations Home Equipment Needed for Home Before Pt does not want a FWW says Discharge her home is too small. Pt will use SPC. Transportation Needs at Discharge Private Vehicle
--- NOTE | 2022-05-30 14:53 | OT.IPNOTE ---
Attempted to see pt for OT eval and pt states not wanting to do at this time. Reiterated to pt not to raise her right arm up above her shoulder, no heavy lifting, and not to externally rotate her shoulder outward and best to use her left arm for tasks. NO charge. To attempt OT eval tomorrow.
[2022-05-30] MEDS: LORazepam 0.5 MG TABLET PO ×2 (15:16→20:49)
[2022-05-30] MEDS: ONDANSETRON 4 MG/2 ML INJ IV (15:19)
--- NOTE | 2022-05-30 16:11 | DIET.CONS2 ---
Dietary Inpatient Consultation Note Admission Date: 05/26/2022 16:53 Nutrition consulted for ETOH. Pt states she relapsed because brothers recently . Pt s/p biopsy of cecum awaiting pathology results. Pt not appropriate for nutrition counselling at this time. Will check in daily to see if more appropriate. Diet: 05/30/22 Lunch General (Regular) Diet Diet Modifications: Nutrition Percent Meal Consumed 100% 05/30/22 12:52 Percent Meal Consumed 75% 05/30/22 08:55 Percent Meal Consumed pt ref 05/29/22 18:56 Percent Meal Consumed pt npo 05/29/22 13:00 Percent Meal Consumed pt npo 05/29/22 10:00 Percent Meal Consumed 100% 05/28/22 17:28 Electronically Signed by: Mariola Carl 05/30/22 16:11 Clinical Dietitian [address] [id number]
--- NOTE | 2022-05-30 16:43 | P.PN_ITS ---
Subjective Subjective Interval history: Patient awaiting pathology report from colonoscopy from cecal mass. Hgb down to 7.4 today. She is nervous about going home and would like to work with PT today. Exam Vital Signs (past 8 hours): - 05/30/22 09:06 05/30/22 09:49 05/30/22 14:00 Temperature 97.4 F L 97.0 F L Pulse Rate 89 72 Respiratory Rate 20 18 Blood Pressure 124/50 L 124/50 L 130/73 Pulse Oximetry 97 97 Oxygen Flow Rate 0 0 Oxygen Delivery Method Room Air Oxygen Flow Rate 0 Narrative Exam Narrative: GENERAL:? Alert 66-year-old female anxious and in no acute distress HEENT: Head atraumatic,EOMI, pupils reactive, face symmetric, moist mucous membranes CARDIOVASCULAR: Regular rate and rhythm without murmurs, rubs or gallops. RESPIRATORY: Breath sounds equal bilaterally in all lobes , no wheezes rales or rhonchi. ABDOMEN: Soft, nontender.? Normoactive bowel sounds all 4 quadrants.? No guarding or rebound. EXTREMITIES: Normal range of motion, no clubbing or edema.? Neurovascularly intact. Right shoulder pain no clavicle step-off moving fingertips distal radial intact no obvious bony deformity.? General tenderness of right shoulder. NEUROLOGICAL: Alert and oriented.? Moving all extremities SKIN: Warm, dry, no laceration, no petechiae, no rashes or lesions. Objective Labs 05/30/22 12:20 05/30/22 04:51 Labs: Laboratory Results - last 24 hr 05/30/22 05/30/22 05/30/22 04:51 04:51 04:51 WBC 3.4 L RBC 3.13 L Hgb 7.4 L Hct 23.0 L MCV 73.5 L MCH 23.6 L MCHC 32.1 RDW 23.8 H Plt Count 197 Neut % (Auto) 50.4 Lymph % (Auto) 33.3 [place] % (Auto) 11.1 Eos % (Auto) 4.1 H Baso % (Auto) 1.1 Neut # (Auto) 1700 Lymph # (Auto) 1100 [place] # (Auto) 400 Eos # (Auto) 100 Baso # (Auto) 0 RBC Morphology See below Hypochromasia 1+ H Anisocytosis 2+ H Microcytosis 1+ H Ovalocytes 1+ H Sodium 134 L Potassium 3.4 Chloride 101 Carbon Dioxide 32 BUN 4 L Creatinine 0.62 Estimated GFR > 60 BUN/Creatinine Ratio 6.5 Glucose 120 H Calcium 8.2 L Magnesium Iron 19 L TIBC 326 % Saturation 6 L Transferrin 223 Total Bilirubin 0.6 AST 21 ALT 11 Alkaline Phosphatase 36 L Total Protein 4.7 L Albumin 2.5 L Globulin 2.2 Albumin/Globulin Ratio 1.1 05/30/22 05/30/22 04:51 12:20 WBC 4.8 RBC 3.57 L Hgb 8.5 L Hct 26.7 L MCV 74.7 L MCH 23.9 L MCHC 32.0 RDW 24.0 H Plt Count 243 Neut % (Auto) 50.6 Lymph % (Auto) 31.5 [place] % (Auto) 11.4 Eos % (Auto) 5.2 H Baso % (Auto) 1.3 Neut # (Auto) 2400 Lymph # (Auto) 1500 [place] # (Auto) 500 Eos # (Auto) 200 Baso # (Auto) 100 RBC Morphology See below Hypochromasia 1+ H Anisocytosis 2+ H Microcytosis 1+ H Ovalocytes 1+ H Sodium Potassium Chloride Carbon Dioxide BUN Creatinine Estimated GFR BUN/Creatinine Ratio Glucose Calcium Magnesium 1.7 Iron TIBC % Saturation Transferrin Total Bilirubin AST ALT Alkaline Phosphatase Total Protein Albumin Globulin Albumin/Globulin Ratio [facility] Social History household members: none Smoking Status: Never smoker alcohol intake: current Assessment & Plan Assessment & Plan narrative: 1. Ground level fall, recurrent, resulting in right shoulder dislocation, acute on chronic, secondary to alcohol abuse/intoxication, present on admission -right shoulder was reduced in ED -suspect patient also may be contributing to falls per polypharmacy as she has listed medication of Seroquel, bupropion, duloxetine, gabapentin, Lamictal, and lorazepam on her medication list. -admit ETOH 137 -PT/OT evaluation -thiamine, folic acid, vitamin-A -had a 2 year sobriety prior to this episode of alcohol intake.? Recently had 2 brothers passed within the last couple weeks.? Instead of calling her sponsor with AA she felt drinking would help.? She will reconnect with her sponsor. 2. Lower GI bleed likely due to cecal mass acute, present on admission. -Initial H&H 8.06/29.6, repeat 8.05/27, MCV 74.5, MCH 24 on presentation.? Hemoglobin is improved to 9.7.? -Protonix IV 40 mg b.i.d. continue. -continue to trend H and H and monitor for bleeding -guaiac-positive on presentation -holding VTE medication prophylaxis -EGD on 05/29 was normal without evidence of bleeding, colonoscopy showed possible cecal mass without current bleeding, internal hemorrhoids -f/u pathology of cecal mass, spoke with Dr. Gerardo on 05/30 who said if cancerous will likely need partial colectomy as outpatient -trend Hgb 3. Hypertensive urgency in the setting of hypertension, essential, acute on chronic, present on admission. Blood pressure increased post procedures and hydralazine as needed orders given. -ED. blood pressures 170/103, 174/118, 182/93, heart rate 108-129 on p resentation.? Hypertension remains at 182/85 this morning with a pulse rate of 122. Postprocedure blood pressure 178/68 today. -continue metoprolol. 4. Depression with anxiety, acute on chronic, present on admission -due to concerns regarding polypharmacy and unsure what patient is actually taking holding lorazepam, duloxetine, Seroquel, bupropion -continue holding -continuing Lamictal 5.? Obesity, moderate, acute on chronic, present on admission -as evidence by BMI 39.7 -dietary consult ordered regarding nutritional education and information for dietary, lifestyle, exercise, and weight changes. -the patient is at much higher risk for medical and surgical complications due to obesity as it relates to chronic illnesses:, and acute illness.? The patient's obesity increases the difficulty and complexity of medical and/or surgical interventions, management and increases the chances of poor outcome such as morbidity and mortality as well as impaired wound healing. 6. Insomnia.? Treat with trazodone 25 mg p.o. q.h.s. and patient has melatonin as needed Code status:Full Surrogate decision maker:? Daughter Zuri LOMBARDI PCR:? Negative DVT/VTE prophylaxis:? Holding medication, SCDs only Dispo: Awaiting cecal mass pathology and PT eval. Can likely discharge on 05/31. [facility] consult placed as patient wants SNF. Quality VTE Deep Vein Thrombosis/Pulmonary Embolism Present on Admission: No
[2022-05-30] MEDS: LOPERAMIDE 2 MG CAPSULE PO ×2 (17:06→20:27)
[2022-05-30] MEDS: GABAPENTIN 300 MG CAPSULE 900 MG PO (20:11)
[2022-05-30] MEDS: TRAZODONE 50 MG TABLET 25 MG PO (20:12)
[2022-05-30] MEDS: PRAVASTATIN 20 MG TABLET 40 MG PO (20:12)
[2022-05-31] MEDS: OXYCODONE IR 5 MG TABLET PO ×3 (01:23→08:46)
[2022-05-31] MEDS: LORazepam 0.5 MG TABLET PO ×3 (01:24→10:29)
[2022-05-31 03:35] VITALS: BP 150/60; PULSE 95; RESP 18; TEMP 36.7; O2SAT 95
[2022-05-31 06:39] LABS: Basophils Absolute Auto 0 /uL (0-100); Eosinophils Absolute Auto 300 /uL (0-450); Eosinophils Percent Auto 7.3 % (2-4); Hemoglobin 7.8 g/dL (12.0-16.0); Lymphocytes Absolute Auto 1400 /uL (1100-4500); Lymphocytes Percent Auto 35.7 % (25-40); Mean Corpuscular HGB Conc 32.5 % (30-36); Mean Corpuscular Hemoglobin 24.2 PG (26-34); Mean Corpuscular Volume 74.3 fL (80-100); Monocytes Absolute Auto 500 /uL (0-900); Monocytes Percent Auto 12.2 % (3-14); Neutrophils Absolute Auto 1700 /uL (1500-7000); Neutrophils Percent Auto 43.8 % (50-75); Platelet Count 218 X10^3/uL (150-400); Red Blood Cell Count 3.23 X10^6/uL (4.0-5.2); Red Cell Distribution Width 23.8 % (11.6-14.8); White Blood Cell Count 3.9 X10^3/uL (4.5-11.0)
[2022-05-31 06:42] LABS: Add Manual Diff / Slide Review SLIDE REVIEW
[2022-05-31 07:00] VITALS: BP 160/62; PULSE 98; RESP 17; TEMP 36.6; O2SAT 95
[2022-05-31 07:05] LABS: BUN Creatinine Ratio 9.2 (6-22); Blood Urea Nitrogen 6 mg/dL (7-17); Calcium 8.5 mg/dL (8.4-10.2); Carbon Dioxide 32 mmol/L (22-32); Chloride 101 mmol/L (98-107); Estimated Glomerular Filt Rate > 60 mL/min (>60); Glucose 98 mg/dL (80-110); HEMOLYSIS < 15 (0-50); Magnesium 1.7 mg/dL (1.6-2.3); Sodium 136 mmol/L (137-145)
[2022-05-31 07:17] LABS: Anisocytosis 2+; Hypochromasia 1+; Microcytosis 1+; Ovalocytes 1+
[2022-05-31] MEDS: FOLIC ACID 1 MG TABLET PO (08:46)
[2022-05-31] MEDS: lamoTRIgine 100 MG TABLET 200 MG PO (08:46)
[2022-05-31 08:47] VITALS: BP 150/60; PULSE 95
[2022-05-31] MEDS: LOPERAMIDE 2 MG CAPSULE PO (08:47)
[2022-05-31] MEDS: MULTIVITAMIN 1 TABLET 1 TAB PO (08:47)
[2022-05-31] MEDS: METOPROLOL ER 25 MG TABLET PO (08:47)
[2022-05-31] MEDS: PANTOPRAZOLE 40 MG VIAL IV (08:52)
[2022-05-31] MEDS: SODIUM CHLORIDE 0.9% FLUSH 10 ML IV (08:52)
[2022-05-31] MEDS: MAGNESIUM CHLORIDE 64 MG TABLET 128 MG PO (09:47)
--- NOTE | 2022-05-31 10:05 | PT.IPTN ---
Current Diagnoses Anemia, unspecified (05/26/22) Alcohol use, unspecified with intoxication, unspecified (05/26/22) Surgery Performed Operation Date: 05/29/22 15:30 Actual Procedures p Esophagogastroduodenoscopy - Enrique Hernandez MD s Colonoscopy WITH BIOPSY - Enrique Hernandez MD Physical Therapy Treatment Note M2 PT-IP Current Condition Start: 05/30/22 12:19 Freq: NEEDED Status: Active Protocol: Document 05/30/22 13:37 TH (Rec: 05/30/22 14:06 TH [id number]) Physical Therapy Current Condition Current Condition Evaluation Date 05/30/22 Treatment Diagnosis S/p GI bleed, colonoscopy, fall at home, r shld dislocation/red M3 PT-IP Subjective Start: 05/30/22 12:19 Freq: NEEDED Status: Active Protocol: Document 05/31/22 11:14 TS (Rec: 05/31/22 11:44 TS [id number]) Subjective Physical Therapy Visit Type Type Treatment Note Visit Start Time 10:05 Visit Stop Time 10:30 Total Visit Minutes 25 Physical Therapy Visit Comments Patient Comments Pt reports R shoulder is sore, 06/12. MD in to seee pt, reports she will be d/c home today in the afternoon. Patient Goals LE strength to be able to ambulate in home Therapy Pain Assessment Pain When Pain Assessed constant Pain Present Pain Present Pain Reported Location Right Shoulder Intensity 4 Scale Used Numeric (0 - 10) Description Aching Pain Management Techniques Timing of Activity with Medications M4 PT-IP Mobility and Gait Start: 05/30/22 12:19 Freq: NEEDED Status: Active Protocol: Document 05/31/22 11:14 TS (Rec: 05/31/22 11:44 TS [id number]) PT-Bed Mobility Assessment Supine to Sit Supine to Sit Standby Assistance Scooting Scooting to Edge of Bed Independent PT-Transfer Assessment Sit to and From Stand Sit to and from Stand Standby Assistance Equipment Transfer Assistive Device Front Wheeled Walker Comments Mobility Comments Pt found resting in bed agreeable to PT session. Supine to sit SBA with BUE support. Scooted EOB independently without BUE support. Sit to stand x1 no AD SBA, some lateral leaning to left, sit to stand x1 with FWW SBA with no lateral lean. PT was left in room EOB with RN for medication. Gait Assessment Gait Gait Assistance Required: Standby Assistance Distance (Feet) 150 Able to Maintain Weight Bearing Status Yes During Gait Assistive Devices Assistive Device Front Wheeled Walker Gait Deviations General Gait Pattern Lateral Trunk Lean Comments Gait Comments Pt ambulated no AD in room 20' , some lateral leaning/swaying and unsteady. Ambulated 20' with cane, continues to lateral lean/sway and unsteady . Ambulated in hallway ~110 with FWW, no lateral lean/ swaying, more steady on feet, no reports of fatigue, dizziness or buckling of LE's. Stair Climbing Assessment Comments Stair Climbing Comments NT pt reports no stairs at home PT-Balance Assessment Sitting Balance and Reactions Static Sitting Balance Ability Normal Dynamic Sitting Balance Ability Normal Standing Balance and Reactions Static Standing Balance Ability Normal Dynamic Standing Balance Ability Good Device Used fWW Comments Other Balance Tests/Deviations/Treatment With no AD she laterally leans : to left slightly, no lateral lean with FWW. M5 PT-IP Objective Assessments Start: 05/30/22 12:19 Freq: NEEDED Status: Active Protocol: Document 05/30/22 13:37 TH (Rec: 05/30/22 14:06 TH [id number]) Orientation Orientation/Cognition Level of Alertness Alert Orientation Name,Age,Situation Language Function Ability No Deficits Noted Safety Awareness Understands Safety Issues Memory Description No Deficits Noted Gross Range of Motion Lower Extremity ROM Assessment Within Functional Limits Strength Lower Extremity Strength Assessment Within Functional Limits M6 PT-IP Treatment Start: 05/30/22 12:19 Freq: NEEDED Status: Active Protocol: Document 05/31/22 11:14 TS (Rec: 05/31/22 11:44 TS [id number]) Physical Therapy Treatment Equipment Issued Equipment Type and Company FWW M7 PT-IP Assessment and Plan Start: 05/30/22 12:19 Freq: NEEDED Status: Active Protocol: Document 05/31/22 11:14 TS (Rec: 05/31/22 11:44 TS [id number]) PT Summary Assessment and Plan Potential Rehabilitation Potential Good Status of Condition at Evaluation Stable Summary Impairments Pain,Activity Tolerance Assessment Summary Pt continues to report pain in R shoulder, in room discussing pain and d/c plan. She is SBA for bed mobility and for sit to stand. She is unsteady on her feet with cane /no AD, pt improved balance during standing and ambulation w/FWW. Therapist recommended she use FWW at this time, she will only take FWW home if insurance will cover. She ambualted SBA ~110' in hallway , no signs of LOB or buckling of knees. PT is currently recommending return home with assist as needed. Pt has a few friends that could possibly help her but says they have busy lives. She is open to having HHPT if insurance will cover it and will go home with FWW if insurance will cover it. Goals Bed Mobility Goal Independent Transfer Goal Independent Gait Goal Independent Gait Distance 100+ feet Frequency of Treatment Frequency Of Treatment Once a Day Treatment Plan Physical Therapy Treatment Plan Bed Mobility Training,Transfer Training,Gait Training, Therapeutic Exercise,Balance Retraining,Hot or Cold Pack Precautions Other Precautions R shld dislocation precautions Weight Bearing Status Weight Bearing Status Weight Bear as Tolerated Allowed Weight Bearing Amount (enter % R UE or #) (%) Recommendations To Nursing Amount of Assist Needed Standby Assistance Discharge Recommendations PT Discharge Recommendations Home Equipment Needed for Home Before Pt open to using FWW at home Discharge but wants to knkow if insurance will cover. Previoulsy used cane at home but therapist would recommend FWW at this time due to being unsteady on feet with cane. Transportation Needs at Discharge Private Vehicle
--- NOTE | 2022-05-31 10:34 | PM.DS.1 ---
History of Present Illness History of Present Illness Date Patient Seen: 05/31/22 Time Patient Seen: 17:19 Chief complaint: GLF Narrative: Shaista Corley is a 66-year-old female with an extensive history unstable gait uses a cane at baseline, repeat EMS runs and ED 05/11& 05/12 visits for falls, and alcohol abuse who presented to the ED today after 3 reported falls in the past 24 hours complaining of shoulder pain was found to be intoxicated did advise that she had a bottle of wine this morning she present dizzy, Febrile, tachycardic, tachypneic with hypertensive urgency. Patient was also found to be anemic and guaiac positive in the ED. blood pressures 170/103, 174/118, 182/93, heart rate 108-129. Admit temp 99.4?, BP 140/61, 128, 16, 95% on room air. Initial H&H 8.4/27.6, repeat 8.3/25, MCV 74.5, MCH 24, glucose 131, tox screen was positive for benzos and tricyclic antidepressants, lactate, procalcitonin, urinalysis, COVID were all negative. ETOH 137, stool was guaiac positive, head CT was negative for any acute process, C-spine was negative for any acute process. Right shoulder x-ray demonstrated anterior dislocation shoulder was reduced in ED. Chest x-ray possible vascular crowding versus mild lung disease infectious versus edema. Patient admitted for ground level fall frequent with right shoulder dislocation secondary to alcohol intoxication, and lower GI bleed, blood-loss anemia, and hypertensive urgency. On admit unable to obtain appropriate ROS HPI or family medical history due to intoxication. Patient denies chest pain, shortness in breath, headache, changes in vision, difficulty swallowing, speech impairment, weakness, numbness, tingling, LOC, fever, body aches, chills, cough, recent exposure to illness, abdominal pain, nausea, vomiting, urinary incontinence/retention, dysuria, frequency, urgency, hematuria, bowel changes, constipation, incontinence, melena, rashes, recent changes to medication, illness. Discharge Providers Provider Date of admission: 05/26/22 16:53 Discharge Date: 05/31/22 Primary care physician: Jeff Fu DO Consults: 05/26/22 17:21 Consult to General Surgery Routine Comment: Consulting Provider: Alicia Louis Reason for consultation: UGIB 05/26/22 17:24 Consult to Dietitian, Adult Routine Comment: Reason For Exam: alcoholism 05/30/22 08:23 Consult to Physical Therapy Evaluate & Treat Comment: Physician Instructions: Assist in dispo recommendations and planning 05/30/22 10:27 Consult to Occupational Therapy Evaluate & Treat Comment: Physician Instructions: Evaluate and treat 05/30/22 11:25 Consult to Home Health Routine Comment: Reason For Exam: Home health upon discharge 05/30/22 16:50 Consult to [employer] - Store Specialist Routine Comment: wants SNF Discharge provider: Ciaran Orozco DO Summary Hospital Course Discharge Diagnosis: 1. Ground level fall, recurrent, resulting in right shoulder dislocation, acute on chronic, secondary to alcohol abuse/intoxication, present on admission -right shoulder was reduced in ED -suspect patient also may be contributing to falls per polypharmacy as she has listed medication of Seroquel, bupropion, duloxetine, gabapentin, Lamictal, and lorazepam on her medication list. -admit ETOH 137 -PT/OT evaluation -thiamine, folic acid, vitamin-A -had a 2 year sobriety prior to this episode of alcohol intake.? Recently had 2 brothers passed within the last couple weeks.? Instead of calling her sponsor with AA she felt drinking would help.? She will reconnect with her sponsor. 2. Lower GI bleed likely due to cecal mass acute, present on admission. -Initial H&H 8.4/27.6, repeat 8.3/25, MCV 74.5, MCH 24 on presentation.? Hemoglobin is improved to 9.7.? -Protonix IV 40 mg b.i.d. continue. -continue to trend H and H and monitor for bleeding -guaiac-positive on presentation -holding VTE medication prophylaxis -EGD on 05/29 was normal without evidence of bleeding, colonoscopy showed possible cecal dysplasia without current bleeding, internal hemorrhoids -f/u pathology of cecal mass, spoke with Dr. Gerardo on 05/30 who said if cancerous will likely need partial colectomy as outpatient 3. Hypertensive urgency in the setting of hypertension, essential, acute on chronic, present on admission.? Blood pressure increased post procedures and hydralazine as needed orders given. -ED. blood pressures 170/103, 174/118, 182/93, heart rate 108-129 on presentation.? Hypertension remains at 182/85 this morning with a pulse rate of 122.? Postprocedure blood pressure 178/68 today. -continue metoprolol. 4. Depression with anxiety, acute on chronic, present on admission -due to concerns regarding polypharmacy and unsure what patient is actually taking holding lorazepam, duloxetine, Seroquel, bupropion -continue holding -continuing Lamictal 5.? Obesity, moderate, acute on chronic, present on admission -as evidence by BMI 39.7 -dietary consult ordered regarding nutritional education and information for dietary, lifestyle, exercise, and weight changes. -the patient is at much higher risk for medical and surgical complications due to obesity as it relates to chronic illnesses:, and acute illness.? The patient's obesity increases the difficulty and complexity of medical and/or surgical interventions, management and increases the chances of poor outcome such as morbidity and mortality as well as impaired wound healing. 6. Insomnia.? Treat with trazodone 25 mg p.o. q.h.s. and patient has melatonin as needed Hospital Course: Presented to the ED for falling at home and dislocating right shoulder. While in ED noted to have blood in stool and was guiaic positive. Admitted for further workup. EGD was negative but colonoscopy showed inflammation and ulceration at the ileocecal valve concerning for malignancy vs infection vs IBD. Biopsies were taken. Her Hgb remained stable and she was cleared to return home. Her biopsy resulted as no evidence of malignancy but suggested possible infection vs NSAID related injury vs Crohn's disease. Patient will need to f/u with GI if abd pain and LGIB continues. Time Spent with Patient Time spent: Greater than 30 minutes Exam Vital Signs (past 8 hours): - 05/31/22 03:35 05/31/22 07:00 05/31/22 08:47 Temperature 98.0 F 97.8 F Pulse Rate 95 H 98 H 95 H Respiratory Rate 18 17 Blood Pressure 150/60 H 160/62 H 150/60 H Pulse Oximetry 95 95 Oxygen Flow Rate 0 0 Oxygen Delivery Method Room Air Oxygen Flow Rate 0 Narrative Exam Narrative: GENERAL:? Alert 66-year-old female anxious and in no acute distress HEENT: Head atraumatic,EOMI, pupils reactive, face symmetric, moist mucous membranes CARDIOVASCULAR: Regular rate and rhythm without murmurs, rubs or gallops. RESPIRATORY: Breath sounds equal bilaterally in all lobes , no wheezes rales or rhonchi. ABDOMEN: Soft, nontender.? Normoactive bowel sounds all 4 quadrants.? No guarding or rebound. EXTREMITIES: Normal range of motion, no clubbing or edema.? Neurovascularly intact. Right shoulder pain no clavicle step-off moving fingertips distal radial intact no obvious bony deformity.? General tenderness of right shoulder. NEUROLOGICAL: Alert and oriented.? Moving all extremities SKIN: Warm, dry, no laceration, no petechiae, no rashes or lesions. Objective Labs 05/31/22 10:50 05/31/22 06:09 Labs: Laboratory Results - last 24 hr 05/30/22 05/31/22 05/31/22 12:20 06:09 06:09 WBC 4.8 3.9 L RBC 3.57 L 3.23 L Hgb 8.5 L 7.8 L Hct 26.7 L 24.0 L MCV 74.7 L 74.3 L MCH 23.9 L 24.2 L MCHC 32.0 32.5 RDW 24.0 H 23.8 H Plt Count 243 218 Neut % (Auto) 50.6 43.8 L Lymph % (Auto) 31.5 35.7 [place] % (Auto) 11.4 12.2 Eos % (Auto) 5.2 H 7.3 H Baso % (Auto) 1.3 1.0 Neut # (Auto) 2400 1700 Lymph # (Auto) 1500 1400 [place] # (Auto) 500 500 Eos # (Auto) 200 300 Baso # (Auto) 100 0 RBC Morphology See below See below Hypochromasia 1+ H 1+ H Anisocytosis 2+ H 2+ H Microcytosis 1+ H 1+ H Ovalocytes 1+ H 1+ H Sodium 136 L Potassium 4.0 Chloride 101 Carbon Dioxide 32 BUN 6 L Creatinine 0.65 Estimated GFR > 60 BUN/Creatinine Ratio 9.2 Glucose 98 Calcium 8.5 Magnesium 1.7 PFSH Social History household members: none Smoking Status: Never smoker alcohol intake: current Discharge Plan Discharge Plan Patient Disposition: Home Health Service Provider Discharge Comment: You were admitted and found to have a GI bleed from possible colon cancer. We are awaiting the pathology to return to confirm this. In the meantime, please avoid alcohol to prevent falling again and injuring yourself. You can continue all of your home meds as you take them. Discharge orders & Medications Prescriptions: Continued lamotrigine 200 mg tablet 200 mg PO DAILY Patient Comments: Take 1 tablet by mouth every night quetiapine 200 mg tablet 400 mg PO BEDTIME acyclovir 400 mg Tablet 400 mg PO PRN PRN (Reason: Cold Sores) lorazepam [Ativan] 0.5 mg tablet 0.5 mg PO PRN PRN (Reason: Anxiety) Patient Comments: Take 1 tablet by mouth once a day Use 1 tablet prior to flight gabapentin 300 mg capsule 900 mg PO BEDTIME metoprolol succinate 25 mg tablet extended release 24 hr 25 mg PO DAILY polyethylene glycol 3350 [Miralax] 17 gram/dose powder 17 g PO DAILY Patient Comments: once a day ondansetron 4 mg tablet,disintegrating 4 mg PO PRN PRN (Reason: Nausea) bupropion HCl 150 mg tablet extended release 24 hr 150 mg PO DAILY Patient Comments: Take 1 tablet by mouth every morning Ventolin HFA 1 - 2 puff inhalation QMONTH PRN (Reason: Shortness Of Breath) disulfiram 250 mg PO DAILY duloxetine 60 mg PO DAILY pravastatin 40 mg PO BEDTIME tizanidine 4 mg PO TID Follow up/Referrals: Jeff Fu DO [Primary Care Provider] - 2 Weeks Diet/Activity/Treatments Diet: Clear Liquid Visit Report/Discharge Packet Instructions: Shoulder Dislocation, Anemia, DI for Alcohol Use Disorder, DI for Prescription Opioid Use Stand Alone Forms: Patient Portal/API, Stroke Signs & Symptoms, Colonoscopy Result: [facility] Discharge Data Primary Care Provider: Jeff Fu Attending Provider: Ciaran Orozco Admit Date/Time: 05/26/22 16:53 Discharges patient from system. Discharge Date/Time: 05/31/22 15:05 Quality VTE Deep Vein Thrombosis/Pulmonary Embolism Present on Admission: No
--- NOTE | 2022-05-31 10:46 | CM.DPNOTE ---
DC Note Discharge home today. Patient agreeable to home health through [facility], provided brochure. Encouraged patient to contact her friends and family this morning to discuss transport options and request assist throughout her recovery once she returns home, patient agrees Plan: Discharge home via friend to transport with home health services, close outpatient follow up JW
[2022-05-31 10:58] LABS: Add Manual Diff / Slide Review NO; Basophils Absolute Auto 100 /uL (0-100); Basophils Percent Auto 2.2 % (0-2); Eosinophils Absolute Auto 400 /uL (0-450); Eosinophils Percent Auto 7.8 % (2-4); Hematocrit 28.3 % (36-46); Lymphocytes Absolute Auto 1700 /uL (1100-4500); Lymphocytes Percent Auto 32.4 % (25-40); Mean Corpuscular HGB Conc 31.8 % (30-36); Mean Corpuscular Hemoglobin 23.6 PG (26-34); Mean Corpuscular Volume 74.3 fL (80-100); Monocytes Absolute Auto 600 /uL (0-900); Monocytes Percent Auto 10.9 % (3-14); Neutrophils Absolute Auto 2400 /uL (1500-7000); Neutrophils Percent Auto 46.7 % (50-75); Platelet Count 294 X10^3/uL (150-400); Red Blood Cell Count 3.81 X10^6/uL (4.0-5.2); Red Cell Distribution Width 23.8 % (11.6-14.8); White Blood Cell Count 5.2 X10^3/uL (4.5-11.0)
[2022-05-31 11:00] VITALS: BP 153/55; RESP 17; TEMP 36.2; O2SAT 97
[2022-05-31 11:11] LABS: Anisocytosis 2+; Poikilocytosis 1+
[2022-05-31 11:42] LABS: Carcinoembryonic Antigen 1.1 ng/mL (0.1-3.0)
--- NOTE | 2022-05-31 13:15 | OT.IPNOTE ---
Spoke to pt regarding FWW adamantly states does not want a FWW and that it will be in the way at home. Pt insistent that she will just use a cane for now. Pt not interested to get up yet and states to rest more, take a shower and have her friend take her home. Not able to do OT eval, pt aware to limit use of right UE especially over her shoulder movements and for lifting needs. NO charge.
--- NOTE | 2022-05-31 15:04 | PC.NURSE ---
pt given discharge instructions. pt dressed and ready for d/c. Midline removed. Went over d/c instructions-discussed home medications, reminded to get up slowly and take her time to decrease falls. Provided stroke education and reminded pt to f/u with [facility]. pt out to taxi via w/c.
--- NOTE | 2022-06-01 08:20 | CM.DPNOTE ---
Late entry: Faxed dc summary (not signed) and the ER report due to patient coming back to ER after she was discharged. I called [facility] and spoke to Mary letting her know I will send over the dc summary and the new ER report. I did let Mary know to please move forward on home health services. Lacy Maxwell, CAMIL[facility] Assist.
== END 2022-05-31 15:05 | disposition home health service (06) ==
LOC: ED 16:13 → AC 17:00
PROVIDERS: Internal Medicine Gastroenterology; Neuromusculoskeletal Medicine, Sports Medicine; Nurse Practitioner Family; Admitting Provider Student in an Organized Health Care Education/Training Program; Emergency Provider Emergency Medicine; Family Provider Family Medicine; PCP Family Medicine; Referring Provider Emergency Medicine; Visit Provider Student in an Organized Health Care Education/Training Program
PROC: 0DJ08ZZ Inspection of Upper Intestinal Tract, Via Natural or Artificial Opening Endoscopic (ICD-10-PCS; CPT 43235; principal; 2022-05-29 15:30)
PROC: 0DJD8ZZ Inspection of Lower Intestinal Tract, Via Natural or Artificial Opening Endoscopic (ICD-10-PCS; CPT 45378; 2022-05-29 15:30)
DX: K92.1 Melena (principal); D64.9 Anemia, unspecified; F10.239 Alcohol dependence with withdrawal, unspecified; F10.229 Alcohol dependence with intoxication, unspecified; Y90.6 Blood alcohol level of 120-199 mg/100 ml; S43.004A Unspecified dislocation of right shoulder joint, initial encounter; R00.0 Tachycardia, unspecified; W19.XXXA Unspecified fall, initial encounter; Z91.81 History of falling; R26.81 Unsteadiness on feet; I16.0 Hypertensive urgency; F41.9 Anxiety disorder, unspecified; F32.A Depression, unspecified; E66.9 Obesity, unspecified; Z68.39 Body mass index [BMI] 39.0-39.9, adult; Z20.822 Contact with and (suspected) exposure to COVID-19; K31.9 Disease of stomach and duodenum, unspecified; K64.1 Second degree hemorrhoids
CPT/HCPCS: 43235; 45380; 45381; 23650; 36415; 36569; 36592; 70450; 71045; 72125; 73030; 80048; 80053; 80305; 80320; 81001; 82378; 82550; 83540; 83550; 83605; 83735; 84145; 84484; 85014; 85018; 85025; 85610; 87635; 93005; 93010; 96361; 96365; 96366; 96372; 96374; 96375; 96376; 97116; 97161; 97530; 99152; 99231; 99232; 99284; 99285; C9803; G0378; C9113; J1170; J1642; J2060; J2250; J2405; J2704; J3010

== ENCOUNTER 2022-06-01 04:35 | Emergency (ER) | payer MEDICARE, SELFPAY ==
[2022-05-26 20:45] VITALS: BMI 39.7
[2022-06-01] VITALS (11 sets, daily range): BP systolic 134–161; BP diastolic 72–94; PULSE 78–97; RESP 18–20; TEMP 36.6–37.2; O2SAT 87–99; BMI 34.3
--- NOTE | 2022-06-01 04:41 | DI.CT.S_ITS ---
PROCEDURE: CT ABDOMEN PELVIS W CON INDICATIONS: abdominal pain after colonoscopy TECHNIQUE: After the administration of IV contrast, axial sections were acquired from the lung bases to the pubic symphysis. Coronal and sagittal reformats were performed. For radiation dose reduction, the following was used: automated exposure control, adjustment of mA and/or kV according to patient size. COMPARISON: [facility], CT, CT CHEST ABD PEL W CON, 05/12/2022, 21:04. FINDINGS: Image quality: Good. Lung bases: Small left pleural effusion. Heart: Prominent size. Pacemaker leads. Post median sternotomy. Small hiatal hernia. ABDOMEN: Liver: No focal lesion is seen. Probable hepatic steatosis. Gallbladder: Unremarkable. Biliary ducts: Unremarkable. Pancreas: Unremarkable. Spleen: Unremarkable. Adrenal Glands: Unremarkable. Kidneys and Ureters: No hydronephrosis. Stomach and Bowel: Stomach, small bowel loops, and colon are unremarkable. Diverticulosis. Normal appendix. Peritoneum: No abnormal intraperitoneal fluid. No free air. Ventral Wall: No hernia. Mild subcutaneous edema. Abdominal Nodes: No retroperitoneal or mesenteric adenopathy by size criteria. Vessels: Aorta and inferior vena cava are normal in size. PELVIS: Pelvic Organs: Uterus is absent. Bladder: No stone. Pelvic Nodes: No enlarged lymph nodes. Miscellaneous: No inguinal hernias are seen. Bones: No suspicious lesion. IMPRESSION: No acute inflammatory process is identified. No free fluid in the abdomen. Small left pleural effusion. This report is concordant with the overnight preliminary interpretation. Dictated by: Alfred Osuna M.D. on 06/01/2022 at 8:41 Approved by: Alfred Osuna M.D. on 06/01/2022 at 8:46
--- NOTE | 2022-06-01 04:45 | ED_ITS ---
HPI - General Adult General Chief complaint: Abdominal Pain Stated complaint: abd pain Time Seen by Provider: 06/01/22 04:37 Source: patient and EMS Mode of arrival: EMS Limitations: no limitations History of Present Illness HPI narrative: Patient is a 66-year-old female. Just discharged within the past 24 hours after being admitted to the hospital for anemia. She had a colonoscopy and an endoscopy. She did have a biopsy which has yet to be resulted. After discharged home last evening she started to have lower abdominal discomfort. She also states she is having urinary frequency. No fevers. No vomiting. No chest pain. Related Data Home Medications Medication Instructions Recorded Confirmed Ventolin HFA 1 - 2 puff inhalation QMONTH PRN 05/12/22 05/26/22 Shortness Of Breath acyclovir 400 mg tablet 400 mg PO PRN PRN Cold Sores 05/12/22 05/26/22 bupropion HCl 150 mg 24 hr tablet, 150 mg PO DAILY 05/12/22 05/26/22 extended release disulfiram 250 mg PO DAILY 05/12/22 05/26/22 duloxetine 60 mg PO DAILY 05/12/22 05/26/22 gabapentin 300 mg capsule 900 mg PO BEDTIME 05/12/22 05/26/22 lamotrigine 200 mg tablet 200 mg PO DAILY 05/12/22 05/26/22 lorazepam 0.5 mg tablet (Ativan) 0.5 mg PO PRN PRN Anxiety 05/12/22 05/26/22 metoprolol succinate 25 mg 25 mg PO DAILY 05/12/22 05/26/22 tablet,extended release 24 hr ondansetron 4 mg disintegrating 4 mg PO PRN PRN Nausea 05/12/22 05/26/22 tablet polyethylene glycol 3350 17 17 g PO DAILY 05/12/22 05/26/22 gram/dose oral powder (Miralax) pravastatin 40 mg PO BEDTIME 05/12/22 05/26/22 quetiapine 200 mg tablet 400 mg PO BEDTIME 05/12/22 05/26/22 tizanidine 4 mg PO TID spasms 05/12/22 05/26/22 Allergies Allergy/AdvReac Type Severity Reaction Status Date / Time hydrocodone [From VICODIN] Allergy Unknown Verified 05/29/22 14:07 Review of Systems Cardiovascular Cardiovascular: Reports system reviewed and no additional complaints, except as documented Respiratory Respiratory: Reports system reviewed and no additional complaints, except as documented Gastrointestinal Gastrointestinal: Reports system reviewed and no additional complaints, except as documented Genitourinary Genitourinary: Reports system reviewed and no additional complaints, except as documented Integumentary/Breasts Skin/Breast: Reports system reviewed and no additional complaints, except as documented Patient History Social History household members: none Smoking Status: Never smoker alcohol intake: current Smoking Status: Never smoker alcohol intake frequency: 3 or more drinks per day Alcohol type: wine Substance Use Type: does not use Exam Initial Vital Signs Initial Vital Signs: Vital Signs Pulse Rate 86 06/01/22 04:40 Pulse Oximetry 98 06/01/22 04:40 Resp Effort & Inspection: normal respiratory effort Auscultation: clear to auscultation bilaterally Cardio Rate: regular rate Rhythm: regular rhythm GI Inspection: normal to inspection and non-distended Palpation: tender (Lower abdomen) Skin General: no rashes or lesions noted Neuro General: patient alert, patient awake and moves all extremities Extrem General: capillary refill normal Course Orders Ordered: ED Orders 06/01/22 04:41 CT abdomen pelvis w con Stat 06/01/22 06:01 Complete Blood Count AUTO DIFF Stat Comprehensive Metabolic Panel Stat Ethanol (ETOH) Stat Lipase Stat Sodium Chloride (Normal Saline 0.9%) 1,000 mls @ 500 mls/hr IV BOLUS ONE Stop: 06/01/22 06:40 Last Admin: 06/01/22 05:45 Dose: 500 mls/hr Documented By: SB Vital Signs Vital signs: Vital Signs - 8 hr 06/01/22 04:43 06/01/22 04:40 06/01/22 04:41 Temperature 99 F Pulse Rate 92 H 86 Respiratory Rate 20 Blood Pressure 161/78 H 161/78 H Pulse Oximetry 98 98 Oxygen Delivery Method Nasal Cannula Oxygen Flow Rate 1 06/01/22 04:41 06/01/22 05:00 Temperature Pulse Rate 91 H 90 Respiratory Rate Blood Pressure Pulse Oximetry 98 87 L Oxygen Delivery Method Oxygen Flow Rate Medical Decision Making Medical Records Medical records reviewed: Yes I reviewed the patient's medical records. Lab Data Lab results reviewed: Yes I reviewed the patient's lab results. 06/01/22 06:01 06/01/22 06:01 Labs: Lab Results 06/01/22 06/01/22 06/01/22 Range/Units 06:01 06:01 06:01 WBC 5.5 (4.5-11.0) X10^3/uL RBC 3.53 L (4.0-5.2) X10^6/uL Hgb 8.3 L (12.0-16.0) g/dL Hct 25.9 L (36-46) % MCV 73.4 L (80-100) fL MCH 23.4 L (26-34) PG MCHC 32.0 (30-36) % RDW 23.4 H (11.6-14.8) % Plt Count 282 (150-400) X10^3/uL Neut % (Auto) 44.9 L (50-75) % Lymph % (Auto) 35.2 (25-40) % [place] % (Auto) 12.5 (3-14) % Eos % (Auto) 5.2 H (2-4) % Baso % (Auto) 2.2 H (0-2) % Neut # (Auto) 2500 (9159-7337) /uL Lymph # (Auto) 1900 (0240-9745) /uL [place] # (Auto) 700 (0-900) /uL Eos # (Auto) 300 (0-450) /uL Baso # (Auto) 100 (0-100) /uL RBC Morphology See below Hypochromasia 1+ H Anisocytosis 3+ H Microcytosis 1+ H Sodium 140 (137-145) mmol/L Potassium 4.1 (3.4-5.1) mmol/L Chloride 105 (98-107) mmol/L Carbon Dioxide 28 (22-32) mmol/L BUN 4 L (7-17) mg/dL Creatinine 0.58 (0.52-1.04) mg/dL Estimated GFR > 60 (>60) mL/min BUN/Creatinine Ratio 6.9 (6-22) Glucose 84 (80-110) mg/dL Calcium 8.6 (8.4-10.2) mg/dL Total Bilirubin 0.5 (0.2-1.3) mg/dL AST 26 (14-36) IU/L ALT 9 (<35) IU/L Alkaline Phosphatase 42 (38-126) U/L Total Protein 5.4 L (6.3-8.2) g/dL Albumin 3.0 L (3.5-5.0) g/dL Globulin 2.4 (1.7-4.1) g/dL Albumin/Globulin Ratio 1.3 (1.0-2.8) Lipase 24 (23-300) U/L Ethyl Alcohol 130 H Cancelled ( - 10) mg/dL Urine Dip Bedside Urine Glucose Negative Bedside Urine Bilirubin - Negative Bedside Urine Ketone - Negative Urine Specific [place] 1.010 Bedside Urine Occult Blood - Negative Bedside Urine pH 6.5 Bedside Urine Protein - Negative Bedside Urine Urobilinogen - Negative Bedside Urine Nitrite - Negative Bedside Urine Leukocytes - Negative Esterase Point of care testing: Urine Dip Bedside Urine Glucose Negative Bedside Urine Bilirubin - Negative Bedside Urine Ketone - Negative Urine Specific [place] 1.010 Bedside Urine Occult Blood - Negative Bedside Urine pH 6.5 Bedside Urine Protein - Negative Bedside Urine Urobilinogen - Negative Bedside Urine Nitrite - Negative Bedside Urine Leukocytes - Negative Esterase Imaging Data CT scan - abdomen/pelvis: Radiologist's Impression: No acute findings Cardiomegaly with small left pleural effusion Mild hepatic steatosis MDM Narrative Medical decision making narrative: Today patient was complaining of lower abdominal pain. Higher difficult CT scan is unremarkable. This labs are unremarkable. Baseline anemia. Alcohol level was elevated. I did discuss all this with the patient. There was no indication for surgical consultation. Patient has been able to transition from the bed to the bedside commode. Patient is talking in full sentences. Clear speech. Is tolerating oral intake. Will discharge patient home with instructions to continue to follow the postoperative instructions given to her upon discharge. Discharge Plan Departure Patient Disposition: Home Clinical Impression: Abdominal pain, Alcohol intoxication Instructions: DI for Abdominal Pain-Adult Activity Restrictions/Additional Instructions: I recommend that you follow all of the postprocedure instructions given to you by the providers who did your colonoscopy. Continue to take all of your medications as directed. Contact your primary doctor for follow-up. Prescriptions: No Action lamotrigine 200 mg tablet 200 mg PO DAILY Patient Comments: Take 1 tablet by mouth every night quetiapine 200 mg tablet 400 mg PO BEDTIME acyclovir 400 mg Tablet 400 mg PO PRN PRN (Reason: Cold Sores) lorazepam [Ativan] 0.5 mg tablet 0.5 mg PO PRN PRN (Reason: Anxiety) Patient Comments: Take 1 tablet by mouth once a day Use 1 tablet prior to flight gabapentin 300 mg capsule 900 mg PO BEDTIME metoprolol succinate 25 mg tablet extended release 24 hr 25 mg PO DAILY polyethylene glycol 3350 [Miralax] 17 gram/dose powder 17 g PO DAILY Patient Comments: once a day ondansetron 4 mg tablet,disintegrating 4 mg PO PRN PRN (Reason: Nausea) bupropion HCl 150 mg tablet extended release 24 hr 150 mg PO DAILY Patient Comments: Take 1 tablet by mouth every morning Ventolin HFA 1 - 2 puff inhalation QMONTH PRN (Reason: Shortness Of Breath) disulfiram 250 mg PO DAILY duloxetine 60 mg PO DAILY pravastatin 40 mg PO BEDTIME tizanidine 4 mg PO TID Referrals: Jeff Fu DO [Primary Care Provider] - Stand Alone Forms: Patient Portal/API
[2022-06-01] MEDS: SODIUM CHLORIDE 0.9% 1,000 ML 500 ML IV (05:45)
[2022-06-01 06:11] LABS: Basophils Absolute Auto 100 /uL (0-100); Basophils Percent Auto 2.2 % (0-2); Eosinophils Absolute Auto 300 /uL (0-450); Eosinophils Percent Auto 5.2 % (2-4); Hematocrit 25.9 % (36-46); Hemoglobin 8.3 g/dL (12.0-16.0); Lymphocytes Absolute Auto 1900 /uL (1100-4500); Lymphocytes Percent Auto 35.2 % (25-40); Mean Corpuscular Hemoglobin 23.4 PG (26-34); Mean Corpuscular Volume 73.4 fL (80-100); Monocytes Absolute Auto 700 /uL (0-900); Monocytes Percent Auto 12.5 % (3-14); Neutrophils Absolute Auto 2500 /uL (1500-7000); Neutrophils Percent Auto 44.9 % (50-75); Platelet Count 282 X10^3/uL (150-400); Red Blood Cell Count 3.53 X10^6/uL (4.0-5.2); Red Cell Distribution Width 23.4 % (11.6-14.8); White Blood Cell Count 5.5 X10^3/uL (4.5-11.0)
[2022-06-01 06:14] LABS: Add Manual Diff / Slide Review SLIDE REVIEW
[2022-06-01 06:19] LABS: Alanine Aminotransferase 9 IU/L (<35); Albumin Globulin Ratio 1.3 (1.0-2.8); Alkaline Phosphatase 42 U/L (38-126); Aspartate Aminotransferase 26 IU/L (14-36); BUN Creatinine Ratio 6.9 (6-22); Bilirubin Total 0.5 mg/dL (0.2-1.3); Blood Urea Nitrogen 4 mg/dL (7-17); Calcium 8.6 mg/dL (8.4-10.2); Carbon Dioxide 28 mmol/L (22-32); Chloride 105 mmol/L (98-107); Estimated Glomerular Filt Rate > 60 mL/min (>60); Ethanol (ETOH) 130 mg/dL; Globulin 2.4 g/dL (1.7-4.1); Glucose 84 mg/dL (80-110); HEMOLYSIS 19 (0-50); Lipase 24 U/L (23-300); Potassium 4.1 mmol/L (3.4-5.1); Sodium 140 mmol/L (137-145); Total Protein 5.4 g/dL (6.3-8.2)
[2022-06-01 06:31] LABS: Anisocytosis 3+; Hypochromasia 1+
[2022-06-01 06:32] LABS: Microcytosis 1+
== END 2022-06-01 06:56 | disposition home or self-care (01) ==
PROVIDERS: Emergency Provider Emergency Medicine; Family Provider Family Medicine; PCP Family Medicine
DX: R10.30 Lower abdominal pain, unspecified (principal); F10.129 Alcohol abuse with intoxication, unspecified; Y90.6 Blood alcohol level of 120-199 mg/100 ml
CPT/HCPCS: 36415; 74177; 80053; 80320; 81003; 83690; 85025; 99284; Q9967

== ENCOUNTER 2022-10-08 12:18 | Emergency (ER) | payer MEDICARE, SELFPAY ==
[2022-05-26 20:45] VITALS: BMI 39.7
[2022-10-08] VITALS (32 sets, daily range): BP systolic 129–191; BP diastolic 72–120; PULSE 96–146; RESP 13–32; TEMP 36.6–36.9; O2SAT 87–99; BMI 32.5
--- NOTE | 2022-10-08 12:20 | DI.CT.S_ITS ---
PROCEDURE: CT HEAD/BRAIN WO CON INDICATIONS: Intoxicated, fall TECHNIQUE: Noncontrast 4.5 mm thick angled axial sections acquired from the foramen magnum to the vertex, with coronal and sagittal reformats. For radiation dose reduction, the following was used: automated exposure control, adjustment of mA and/or kV according to patient size. COMPARISON: [facility], CT, CT HEAD/BRAIN WO CON, 05/26/2022, 9:24. FINDINGS: Image quality: Excellent. CSF spaces: Basal cisterns are patent. No extra-axial fluid collections. The ventricles are symmetric in size and shape. Brain: No intracranial bleeds or masses. There is cerebral volume loss for age, with resultant ventricular and sulcal prominence. There are periventricular and deep white matter chronic small vessel ischemic changes. There is intracranial internal carotid artery atherosclerosis. Skull and face: Calvarium and visualized facial bones appear intact, without suspicious lesions. Sinuses: Visualized sinuses and mastoids are clear. IMPRESSION: No acute intracranial abnormality. Dictated by: Michael Juárez M.D. on 10/08/2022 at 12:57 Approved by: Michael Juárez M.D. on 10/08/2022 at 12:58
--- NOTE | 2022-10-08 12:20 | DI.CT.S_ITS ---
PROCEDURE: CT CERVICAL SPINE WO CON INDICATIONS: Intoxicated, fall TECHNIQUE: Noncontrast 3 mm thick sections acquired from the skull base to the T4 level. Sagittal and coronal reformats were then constructed. For radiation dose reduction, the following was used: automated exposure control, adjustment of mA and/or kV according to patient size. COMPARISON: [facility], CT, CT CERVICAL SPINE WO CON, 05/26/2022, 9:24. FINDINGS: Image quality: Excellent. Bones: No fractures or dislocations. Visualized superior ribs are intact. Soft tissues: Prevertebral soft tissues are normal in thickness. No paravertebral hematomas. No apical pneumothoraces. IMPRESSION: No fracture. Dictated by: Michael Juárez M.D. on 10/08/2022 at 13:00 Approved by: Michael Juárez M.D. on 10/08/2022 at 13:01
--- NOTE | 2022-10-08 12:25 | DI.RAD.S_ITS ---
PROCEDURE: XR SHOULDER RT MIN 2V INDICATIONS: drunk, fall, hx of dislocations TECHNIQUE: 3 views of the shoulder were acquired. COMPARISON: [facility], CR, XR SHOULDER RT MIN 2V, 05/26/2022, 12:25. FINDINGS: Bones: Linear lucency traverses the mid/distal clavicle. No suspicious bony lesions. Visualized ribs appear intact. Soft tissues: No suspicious soft tissue calcifications. IMPRESSION: Minimally displaced distal clavicular fracture. Dictated by: Michael Juárez M.D. on 10/08/2022 at 12:56 Approved by: Michael Juárez M.D. on 10/08/2022 at 12:57
--- NOTE | 2022-10-08 12:25 | ED.GENADULT ---
HPI - General Adult General Chief complaint: Toxicology Problem Stated complaint: intoxicated with fall off bed Time Seen by Provider: 10/08/22 12:18 Source: patient and EMS Mode of arrival: EMS Limitations: other (Intoxication) History of Present Illness HPI narrative: Patient is a 66-year-old female. Has a history of multiple chronic medical problems to include bipolar disorder, alcohol use disorder, has a pacemaker in place. It is reported that she is not on anticoagulation. Was brought in by EMS after was recorded that she is fallen multiple times over the past couple days in his also intoxicated. Was concerned about potential head injury. She arrived not on a backboard not in a cervical collar. Her only complaint is right shoulder pain. She states she has fallen multiple times. She also admits to drinking alcohol. Related Data Home Medications Medication Instructions Recorded Confirmed Ventolin HFA 1 - 2 puff inhalation QMONTH PRN 05/12/22 06/21/22 Shortness Of Breath acyclovir 400 mg tablet 400 mg PO PRN PRN Cold Sores 05/12/22 06/21/22 bupropion HCl 150 mg 24 hr tablet, 150 mg PO DAILY 05/12/22 06/21/22 extended release disulfiram 250 mg PO DAILY 05/12/22 06/21/22 duloxetine 60 mg PO DAILY 05/12/22 06/21/22 gabapentin 300 mg capsule 900 mg PO BEDTIME 05/12/22 06/21/22 lamotrigine 200 mg tablet 200 mg PO DAILY 05/12/22 06/21/22 lorazepam 0.5 mg tablet (Ativan) 0.5 mg PO PRN PRN Anxiety 05/12/22 06/21/22 metoprolol succinate 25 mg 25 mg PO DAILY 05/12/22 06/21/22 tablet,extended release 24 hr ondansetron 4 mg disintegrating 4 mg PO PRN PRN Nausea 05/12/22 06/21/22 tablet polyethylene glycol 3350 17 17 g PO DAILY 05/12/22 06/21/22 gram/dose oral powder (Miralax) pravastatin 40 mg PO BEDTIME 05/12/22 06/21/22 quetiapine 200 mg tablet 400 mg PO BEDTIME 05/12/22 06/21/22 tizanidine 4 mg PO TID spasms 05/12/22 06/21/22 Allergies Allergy/AdvReac Type Severity Reaction Status Date / Time hydrocodone [From VICODIN] Allergy Unknown Verified 06/21/22 16:36 Review of Systems Cardiovascular Comments: Denies chest pain Respiratory Comments: Denies shortness of breath Gastrointestinal Comments: Denies abdominal pain Musculoskeletal Comments: Has right shoulder pain Neurologic Comments: Is intoxicated Hematologic/Lymphatic On Anticoagulants: No Patient History Social History household members: none Smoking Status: Never smoker alcohol intake: current Smoking Status: Never smoker alcohol intake frequency: 3 or more drinks per day Alcohol type: wine Substance Use Type: does not use Exam Initial Vital Signs Initial Vital Signs: Vital Signs Pulse Rate 101 H 10/08/22 12:25 Respiratory Rate 15 10/08/22 12:25 Blood Pressure 129/80 10/08/22 12:25 Pulse Oximetry 96 10/08/22 12:25 Const General: disheveled HENMT Head: normal to inspection and normocephalic Resp Effort & Inspection: normal respiratory effort Auscultation: clear to auscultation bilaterally Cardio Rate: regular rate Rhythm: regular rhythm GI Inspection: normal to inspection Palpation: soft and No tender Neuro Other: Is alert to person and place. Does follow commands. Extrem Other: No gross deformities. Does have tenderness to palpation throughout the right shoulder. Course Orders Ordered: ED Orders 10/08/22 12:20 CT cervical spine wo con Stat CT head/brain wo con Stat 10/08/22 12:25 XR shoulder RT min 2V Stat 10/08/22 12:33 EKG-12 Lead Stat 10/08/22 13:20 Complete Blood Count AUTO DIFF Stat Comprehensive Metabolic Panel Stat Ethanol (ETOH) Stat Lipase Stat 10/08/22 15:55 Ethanol (ETOH) Stat 10/08/22 16:00 Urine Drug Screen, Rapid Stat 10/08/22 16:18 Urine Drug Screen, Rapid Stat Discontinued Medications Sodium Chloride (Normal Saline 0.9%) 1,000 mls @ 1,000 mls/hr IV BOLUS ONE Stop: 10/08/22 13:18 Last Infusion: 10/08/22 16:16 Dose: 0 mls/hr Documented By: Admin: 10/08/22 12:59 Dose: 1,000 mls/hr Documented By: ADEOLA Thiamine HCl 100 mg/ Sodium (Chloride) 101 mls @ 404 mls/hr IV NOW ONE Stop: 10/08/22 12:21 Last Infusion: 10/08/22 13:15 Dose: 0 mls/hr Documented By: Admin: 10/08/22 13:00 Dose: 404 mls/hr Documented By: ADEOLA Lorazepam (Lorazepam 2 Mg/Ml Inj) 1 mg IV NOW ONE Stop: 10/08/22 13:29 Last Admin: 10/08/22 13:40 Dose: 1 mg Documented By: ADEOLA Lorazepam (Lorazepam 2 Mg/Ml Inj) 1 mg IV NOW ONE Stop: 10/08/22 15:19 Last Admin: 10/08/22 16:28 Dose: 1 mg Documented By: ADEOLA Vital Signs Vital signs: Vital Signs - 8 hr 10/08/22 13:25 10/08/22 12:25 10/08/22 12:55 Temperature 98.5 F Pulse Rate 98 H 101 H 104 H Respiratory Rate 16 15 18 Blood Pressure 158/90 H 129/80 158/92 H Pulse Oximetry 96 96 97 Oxygen Delivery Method Room Air 10/08/22 13:30 10/08/22 14:00 10/08/22 14:30 Temperature Pulse Rate 127 H 105 H 114 H Respiratory Rate 18 16 20 Blood Pressure Pulse Oximetry 97 97 97 Oxygen Delivery Method 10/08/22 15:00 10/08/22 15:30 10/08/22 16:00 Temperature Pulse Rate 131 H 116 H 120 H Respiratory Rate 21 27 H Blood Pressure Pulse Oximetry 98 97 88 L Oxygen Delivery Method 10/08/22 16:30 10/08/22 17:00 10/08/22 17:34 Temperature Pulse Rate 122 H 116 H 123 H Respiratory Rate 24 32 H 16 Blood Pressure Pulse Oximetry 99 87 L Oxygen Delivery Method Medical Decision Making Lab Data Lab results reviewed: Yes I reviewed the patient's lab results. 10/08/22 13:20 10/08/22 13:20 Labs: Lab Results 10/08/22 10/08/22 10/08/22 Range/Units 13:20 13:20 15:55 WBC 6.3 (4.5-11.0) X10^3/uL RBC 4.31 (4.0-5.2) X10^6/uL Hgb 10.3 L (12.0-16.0) g/dL Hct 32.5 L (36-46) % MCV 75.3 L (80-100) fL MCH 23.8 L (26-34) PG MCHC 31.6 (30-36) % RDW 23.4 H (11.6-14.8) % Plt Count 303 (150-400) X10^3/uL Neut % (Auto) 59.7 (50-75) % Lymph % (Auto) 28.8 (25-40) % Ulster % (Auto) 9.4 (3-14) % Eos % (Auto) 0.4 L (2-4) % Baso % (Auto) 1.7 (0-2) % Neut # (Auto) 3700 (6722-4376) /uL Lymph # (Auto) 1800 (6888-9035) /uL Ulster # (Auto) 600 (0-900) /uL Eos # (Auto) 0 (0-450) /uL Baso # (Auto) 100 (0-100) /uL RBC Morphology See below Anisocytosis 2+ H Sodium 140 (137-145) mmol/L Potassium 3.9 (3.4-5.1) mmol/L Chloride 104 (98-107) mmol/L Carbon Dioxide 27 (22-32) mmol/L BUN 4 L (7-17) mg/dL Creatinine 0.58 (0.52-1.04) mg/dL Estimated GFR > 60 (>60) mL/min BUN/Creatinine Ratio 6.9 (6-22) Glucose 96 (80-110) mg/dL Calcium 8.5 (8.4-10.2) mg/dL Total Bilirubin 0.3 (0.2-1.3) mg/dL AST 35 (14-36) IU/L ALT 13 (<35) IU/L Alkaline Phosphatase 101 (38-126) U/L Total Protein 6.3 (6.3-8.2) g/dL Albumin 3.8 (3.5-5.0) g/dL Globulin 2.5 (1.7-4.1) g/dL Albumin/Globulin Ratio 1.5 (1.0-2.8) Lipase 87 (23-300) U/L U Opiates 300ng/mL cut (Negative) Ur Oxycodone Screen (Negative) Urine Methadone Screen (Negative) Ur Barbiturates Screen (Negative) U Tricyclic Antidepress (Negative) Ur Phencyclidine Scrn (Negative) Ur Amphetamines Screen (Negative) U Methamphetamines Scrn (Negative) Ur MDMA Scrn (Ecstasy) (Negative) U Benzodiazepines Scrn (Negative) Urine Cocaine Screen (Negative) U Marijuana (THC) Screen (Negative) Ethyl Alcohol 207 H 150 H ( - 10) mg/dL 10/08/22 Range/Units 16:00 WBC (4.5-11.0) X10^3/uL RBC (4.0-5.2) X10^6/uL Hgb (12.0-16.0) g/dL Hct (36-46) % MCV (80-100) fL MCH (26-34) PG MCHC (30-36) % RDW (11.6-14.8) % Plt Count (150-400) X10^3/uL Neut % (Auto) (50-75) % Lymph % (Auto) (25-40) % Ulster % (Auto) (3-14) % Eos % (Auto) (2-4) % Baso % (Auto) (0-2) % Neut # (Auto) (1344-0213) /uL Lymph # (Auto) (9006-2765) /uL Ulster # (Auto) (0-900) /uL Eos # (Auto) (0-450) /uL Baso # (Auto) (0-100) /uL RBC Morphology Anisocytosis Sodium (137-145) mmol/L Potassium (3.4-5.1) mmol/L Chloride (98-107) mmol/L Carbon Dioxide (22-32) mmol/L BUN (7-17) mg/dL Creatinine (0.52-1.04) mg/dL Estimated GFR (>60) mL/min BUN/Creatinine Ratio (6-22) Glucose (80-110) mg/dL Calcium (8.4-10.2) mg/dL Total Bilirubin (0.2-1.3) mg/dL AST (14-36) IU/L ALT (<35) IU/L Alkaline Phosphatase (38-126) U/L Total Protein (6.3-8.2) g/dL Albumin (3.5-5.0) g/dL Globulin (1.7-4.1) g/dL Albumin/Globulin Ratio (1.0-2.8) Lipase (23-300) U/L U Opiates 300ng/mL cut Negative (Negative) Ur Oxycodone Screen Negative (Negative) Urine Methadone Screen Negative (Negative) Ur Barbiturates Screen Positive H (Negative) U Tricyclic Antidepress Negative (Negative) Ur Phencyclidine Scrn Negative (Negative) Ur Amphetamines Screen Negative (Negative) U Methamphetamines Scrn Negative (Negative) Ur MDMA Scrn (Ecstasy) Negative (Negative) U Benzodiazepines Scrn Positive H (Negative) Urine Cocaine Screen Negative (Negative) U Marijuana (THC) Screen Negative (Negative) Ethyl Alcohol ( - 10) mg/dL Imaging Data CT scan - head: Radiologist's Impression: PROCEDURE:? CT HEAD/BRAIN WO CON ? INDICATIONS:? Intoxicated, fall ? TECHNIQUE:? Noncontrast 4.5 mm thick angled axial sections acquired from the foramen magnum to the vertex, with coronal and sagittal reformats.? For radiation dose reduction, the following was used:? automated exposure control, adjustment of mA and/or kV according to patient size.? ? COMPARISON:? [facility], CT, CT HEAD/BRAIN WO CON, 05/26/2022, 9:24. ? FINDINGS:? Image quality:? Excellent.? ? CSF spaces:? Basal cisterns are patent.? No extra-axial fluid collections.? The ventricles are symmetric in size and shape.? ? Brain:? No intracranial bleeds or masses.? There is cerebral volume loss for age, with resultant ventricular and sulcal prominence.? There are periventricular and deep white matter chronic small vessel ischemic changes.? There is intracranial internal carotid artery atherosclerosis.? ? Skull and face:? Calvarium and visualized facial bones appear intact, without suspicious lesions.? ? Sinuses:? Visualized sinuses and mastoids are clear.? ? IMPRESSION:? No acute intracranial abnormality. CT - cervical spine: Radiologist's Impression: PROCEDURE:? CT CERVICAL SPINE WO CON ? INDICATIONS:? Intoxicated, fall ? TECHNIQUE:? Noncontrast 3 mm thick sections acquired from the skull base to the T4 level.? Sagittal and coronal reformats were then constructed.? For radiation dose reduction, the following was used:? automated exposure control, adjustment of mA and/or kV according to patient size.? ? COMPARISON:? [facility], CT, CT CERVICAL SPINE WO CON, 05/26/2022, 9:24. ? FINDINGS:? Image quality:? Excellent.? ? Bones:? No fractures or dislocations.? Visualized superior ribs are intact.? ? Soft tissues:? Prevertebral soft tissues are normal in thickness.? No paravertebral hematomas.? No apical pneumothoraces.? ? ? IMPRESSION:? No fracture. Extremity x-ray #1: Radiologist's Impression: PROCEDURE:? XR SHOULDER RT MIN 2V ? INDICATIONS:? drunk, fall, hx of dislocations ? TECHNIQUE:? 3 views of the shoulder were acquired.? ? COMPARISON:? [facility], CR, XR SHOULDER RT MIN 2V, 05/26/2022, 12:25. ? FINDINGS:? ? Bones:? Linear lucency traverses the mid/distal clavicle.? No suspicious bony lesions.? Visualized ribs appear intact.? ? Soft tissues:? No suspicious soft tissue calcifications.? ? IMPRESSION:? Minimally displaced distal clavicular fracture. ECG Data Attestation: I personally reviewed and interpreted this ECG as follows: Interpretation: Atrial fibrillation Ventricular rate of 110 Normal axis Normal QTC Artifact noted No ST T wave changes MDM Narrative Medical decision making narrative: 66-year-old female with a known history of alcohol abuse who has had multiple falls recently. The x-ray today does show a distal clavicle fracture. She would an x-ray here approximately 6 months ago that did not show fracture. Patient states she is interested in detox for alcohol. She is medically cleared. Care turned over to Dr. turcios to follow-up and disposition. Discharge Plan Departure Clinical Impression: Alcohol intoxication, Fracture of clavicle Prescriptions: No Action lamotrigine 200 mg tablet 200 mg PO DAILY Patient Comments: Take 1 tablet by mouth every night quetiapine 200 mg tablet 400 mg PO BEDTIME acyclovir 400 mg Tablet 400 mg PO PRN PRN (Reason: Cold Sores) lorazepam [Ativan] 0.5 mg tablet 0.5 mg PO PRN PRN (Reason: Anxiety) Patient Comments: Take 1 tablet by mouth once a day Use 1 tablet prior to flight gabapentin 300 mg capsule 900 mg PO BEDTIME metoprolol succinate 25 mg tablet extended release 24 hr 25 mg PO DAILY polyethylene glycol 3350 [Miralax] 17 gram/dose powder 17 g PO DAILY Patient Comments: once a day ondansetron 4 mg tablet,disintegrating 4 mg PO PRN PRN (Reason: Nausea) bupropion HCl 150 mg tablet extended release 24 hr 150 mg PO DAILY Patient Comments: Take 1 tablet by mouth every morning Ventolin HFA 1 - 2 puff inhalation QMONTH PRN (Reason: Shortness Of Breath) disulfiram 250 mg PO DAILY duloxetine 60 mg PO DAILY pravastatin 40 mg PO BEDTIME tizanidine 4 mg PO TID Referrals: Jeff Fu DO [Primary Care Provider] -
[2022-10-08] MEDS: SODIUM CHLORIDE 0.9% 1,000 ML 1000 ML IV (12:59)
[2022-10-08] MEDS: THIAMINE 100 MG in SODIUM CHLORIDE 0.9% 100 ML 404 MG IV (13:00)
[2022-10-08 13:31] LABS: Basophils Absolute Auto 100 /uL (0-100); Basophils Percent Auto 1.7 % (0-2); Eosinophils Absolute Auto 0 /uL (0-450); Eosinophils Percent Auto 0.4 % (2-4); Hematocrit 32.5 % (36-46); Hemoglobin 10.3 g/dL (12.0-16.0); Lymphocytes Absolute Auto 1800 /uL (1100-4500); Lymphocytes Percent Auto 28.8 % (25-40); Mean Corpuscular HGB Conc 31.6 % (30-36); Mean Corpuscular Hemoglobin 23.8 PG (26-34); Mean Corpuscular Volume 75.3 fL (80-100); Monocytes Absolute Auto 600 /uL (0-900); Monocytes Percent Auto 9.4 % (3-14); Neutrophils Absolute Auto 3700 /uL (1500-7000); Neutrophils Percent Auto 59.7 % (50-75); Platelet Count 303 X10^3/uL (150-400); Red Blood Cell Count 4.31 X10^6/uL (4.0-5.2); Red Cell Distribution Width 23.4 % (11.6-14.8); White Blood Cell Count 6.3 X10^3/uL (4.5-11.0)
[2022-10-08 13:39] LABS: Add Manual Diff / Slide Review SLIDE REVIEW
[2022-10-08] MEDS: LORazepam 2 MG/ML INJ 1 MG IV ×2 (13:40→16:28)
[2022-10-08 13:41] LABS: Anisocytosis 2+
[2022-10-08 13:42] LABS: Alanine Aminotransferase 13 IU/L (<35); Albumin 3.8 g/dL (3.5-5.0); Albumin Globulin Ratio 1.5 (1.0-2.8); Alkaline Phosphatase 101 U/L (38-126); Aspartate Aminotransferase 35 IU/L (14-36); BUN Creatinine Ratio 6.9 (6-22); Bilirubin Total 0.3 mg/dL (0.2-1.3); Blood Urea Nitrogen 4 mg/dL (7-17); Calcium 8.5 mg/dL (8.4-10.2); Carbon Dioxide 27 mmol/L (22-32); Chloride 104 mmol/L (98-107); Estimated Glomerular Filt Rate > 60 mL/min (>60); Ethanol (ETOH) 207 mg/dL; Globulin 2.5 g/dL (1.7-4.1); Glucose 96 mg/dL (80-110); HEMOLYSIS < 15 (0-50); Lipase 87 U/L (23-300); Potassium 3.9 mmol/L (3.4-5.1); Sodium 140 mmol/L (137-145); Total Protein 6.3 g/dL (6.3-8.2)
[2022-10-08 16:17] LABS: Ethanol (ETOH) 150 mg/dL
[2022-10-08 17:13] LABS: UR Morphine/Opiate cutoff 300 Negative (Negative); Ur Creatinine Normal (Normal); Ur Specific Gravity Normal (Normal); Urine Amphetamines Negative (Negative); Urine Barbiturates Positive (Negative); Urine Benzodiazepines Positive (Negative); Urine Cocaine Negative (Negative); Urine MDMA Negative (Negative); Urine Methadone Negative (Negative); Urine Methamphetamines Negative (Negative); Urine Oxycodone Negative (Negative); Urine Phencyclidine Negative (Negative); Urine Tetrahydrocannabinol Negative (Negative); Urine Tricyclic Antidepressant Negative (Negative); Urine pH Normal (Normal)
--- NOTE | 2022-10-08 18:11 | PC.NURSE ---
assisted pt. with pericare and linen change. pt. ambulated with assist to chair and waited while RN and this SHUTTLE TRUCK DRIVER placed pt. in gown. applied a fresh brief. changed bed linens and applied new purewick to pt. tolerated well
--- NOTE | 2022-10-08 18:16 | PC.NURSE ---
pt. requested to detox at [facility] facility in [place] where pt. resides. This HOUSEKEEPING MANAGER called [facility] to check bed availability. [facility] does not have any beds available as of 1800 on 10/08. pt. notified and requested the facility in [place]. This HOUSEKEEPING MANAGER contacted [facility] and confirmed with Frandy at intake [facility] has bed availability and will fax over H&P,labs.etc. for [facility] to review.
[2022-10-08] MEDS: PHENobarbital 65 MG/ML VIAL 260 MG IV (20:11)
== END 2022-10-08 22:35 | disposition home or self-care (01) ==
PROVIDERS: Emergency Medicine; Emergency Provider Emergency Medicine; Family Provider Family Medicine; PCP Family Medicine
DX: S42.031A Displaced fracture of lateral end of right clavicle, initial encounter for closed fracture (principal); F10.129 Alcohol abuse with intoxication, unspecified; Y90.7 Blood alcohol level of 200-239 mg/100 ml; W06.XXXA Fall from bed, initial encounter
CPT/HCPCS: 36415; 70450; 72125; 73030; 80053; 80305; 80320; 83690; 85025; 93005; 93010; 96361; 96374; 96375; 96376; 99284; J2060; J2560